=== PATIENT | female | born 1995 | race Caucasian/White ===

== ENCOUNTER 2023-06-09 20:33 | Outpatient (REF) | payer OTHER, SELFPAY ==
[2023-06-15 11:09] LABS: Age Gdln ACOG Testing Note (.); IGP, rfx Aptima HPV ASCU Note (.)
== END 2023-06-09 20:34 | disposition home or self-care (01) ==
LOC: LAB 20:33
PROVIDERS: PCP Obstetrics & Gynecology; Visit Provider Obstetrics & Gynecology
DX: Z01.419 Encounter for gynecological examination (general) (routine) without abnormal findings (principal)
CPT/HCPCS: G0145

== ENCOUNTER 2024-06-12 21:50 | Outpatient (REF) | payer OTHER, SELFPAY ==
--- OUTSIDE RECORDS SUMMARY | 2024-06-12 21:53 | XMS_ITS | CCD ---
Author Organization [facility] Care Team Providers Care Test Conductor Name Role Phone PHYSICIAN, DEFAULT Admitting Unavailable PHYSICIAN, DEFAULT Attending FIORDALIZA Hammond Primary Care Unavailable DR MAYNOR MARQUEZ Attending Unavailable DR MAYNOR MARQUEZ Consulting DR MAYNOR Weldon Admitting Unavailable MD Fiordaliza Chairez Attending Unavailable MD Fiordaliza Chairez Attending Unavailable MD Fiordaliza Chairez Attending Unavailable MD Fiordaliza Chairez Attending Unavailable MD Fiordaliza Chairez Attending Unavailable MD Fiordaliza Chairez Attending Unavailable MD Fiordaliza Chairez Attending Unavailable MD Fiordaliza Chairez Attending Unavailable MD Fiordaliza Chairez Attending Unavailable Allergies Allergy Classification Reported Allergen(s) Allergy Type Date of Onset Reaction(s) Facility (1 source) No Known Medication Allergies; Translations: [No Known Medication Allergies] Propensity to adverse reactions (disorder) [facility] Repository Problems Problem Classification Problem Date Documented Date Episodic/Chronic Immunizations and screening for infectious disease (1 source) Encounter for screening for human papillomavirus (HPV); Translations: [ENC SCREENING HUMAN PAPILLOMAVIRUS] Onset: 06-07-2022 Episodic Other screening for suspected conditions (not mental disorders or infectious disease) (4 sources) Encounter for screening for malignant neoplasm of cervix; Translations: [ENC SCREENING MALIG NEOPLASM CERV] Onset: 06-03-2022 Episodic Results Test Name Value Interpretation Reference Range Facil ity Ambulatory Visit Summaryon 0 04-16-2024 Ambulatory Visit Summary Ambulatory Visit Summary CHIKIS MEJIA :1995 Visit Date:04/16/2024 Ambulatory Visit Instructions Your Diagnosis Excessive dietary caloric intake Concentration deficit Anxiety GERD without esophagitis Your Care Team Attending Physician - Fiordaliza Chairez MD Primary Care Physician - Fiordaliza Chairez MD This Is Your Medications List buPROPion (Wellbutrin XL 150 mg/24 hours Tab-ER) semaglutide (Wegovy (0.25 mg dose) subcutaneous solution) Procedures Performed section. Discharge Vitals Temperature (Temporal Artery) 37.0 ?C Heart Rate (Peripheral) 70 Respiratory Rate 16 Blood Pressure 126/82 Height 165.2 cm Height 65 in Weight 93.3 kg Weight 205.26 lb BMI 34.19 What to do next Scheduled Follow-Up Appointments Tuesday 9:30 AM EDT With: Thee SONG, Fiordaliza Solitario Where: [facility] [address] [address]- Medications What How Much When Instructions Unchanged buPROPion (Wellbutrin XL 150 mg/ 24 hours Tab-ER) 1 Tablets By Mouth Every 24 hours Unchanged semaglutide (Wegovy (0.25 mg dose) subcutaneous solution) 0.25 Milligram Subcutaneous Every week Allergies No Known Medication Allergies Problems Ongoing - Any problem that you are currently receiving treatment for. Anxiety Concentration deficit Excessive dietary caloric intake GERD without esophagitis Mild episode of recurrent major depressive disorder Patient Survey You may receive a survey via text or e-mail asking about your office visit. Please share your experience with us by completing your survey. We appreciate your feedback and thank you for choosing us for your care. Normal [facility] Family Medicine Office/Clini c Noteon 04-16-2024 Family Medicine Office/Clinic Note Family Medicine Office/Clinic Note HPI Staff Chikis is a 28 year old female presenting for 3 month follow up weight Weight management Sleeping well:Yes, 6-8 hours Chest pain:No Tremors:No Headaches:No Heart fluttering:No Blurred Vision:No Starting Weight: 229 Weight last visit: 199.9 Weight this visit: 205 questions/concerns: stopped paying for the shot last month ran out of [employer] $ and it was too expensive and feels she's been stress eating for the last month Has felt anxious alot lately, no chest pains, but chest tightness, has to breathe/walk herself through it ADRIANA: 9 phq: 3 phq9: 15 History of Present Illness Patient is presenting for follow-up. Please see staff HPI. Patient states she is also feeling bloated. Patient is not taking her Wellbutrin like she supposed to. Patient is asking for help on weight again. Review of Systems PHQ Score Initial Depression Screen Score: 3 SCORE Detailed Depression Screen Score: 12 Total Depression Screen Score: 15 Physical Exam Vitals & Measurements T: 37.0 ?C(Temporal Artery) HR: 70(Peripheral) RR: 16 BP: 126/82 SpO2: 99% HT: 65 in HT: 165.2 cm WT: 93.3 kg WT: 205.26 lb BMI: 34.19 General: alert, no acute distress ENMT: oral mucosa moist, Cardiovascular: regular rate and rhythm, normal peripheral perfusion Respiratory: Lungs CTA, respirations non labored Extremities: no deformity, no trauma Neurological: oriented x 4, LOC appropriate for age, CN II-XII intact, motor strength equal & normal bilaterally, speech normal Abdomen: Soft, Nontender, Non-distended, + BS Assessment/Plan 1. Excessive dietary caloric intake (R63.2: Polyphagia) Will try Vyvanse next for binge eating disorder. However we need to make sure that patient is not having acid reflux symptoms. At this time we will continue to monitor and patient will follow-up in 6 weeks. 2. Concentration deficit (R41.840: Attention and concentration deficit) Will consider Vyvanse to help. 3. Anxiety (F41.9: Anxiety disorder, unspecified) Patient is not using her medication. Encouraged the patient to start taking her medication. 4. GERD without esophagitis (K21.9: Gastro-esophageal reflux disease without esophagitis) Will add Pepcid. Orders: buPROPion, 150 mg = 1 tab(s), Oral, q24hr, # 90 tab(s), Refills(s) 0, Pharmacy: [id number], 165.2, cm, 04/16/24 14:53:00 EDT, Height/Length Dosing, 93.3, kg, 04/16/24 14:53:00 EDT, Weight Dosing famotidine, 20 mg = 1 tab(s), Oral, BID, # 180 tab(s), Refills(s) 0, Pharmacy: [id number], 165.2, cm, 04/16/24 14:53:00 EDT, Height/Length Dosing, 93.3, kg, 04/16/24 14:53:00 EDT, Weight Dosing Follow-up No qualifying data available Problem List/Past Medical History Ongoing Anxiety Concentration deficit Excessive dietary caloric intake GERD without esophagitis Mild episode of recurrent major depressive disorder Historical No qualifying data Procedure/Surgical History section. Medications Pepcid 20 mg Tab, 20 mg= 1 tab(s), Oral, BID Wellbutrin XL 150 mg/24 hours Tab-ER, 150 mg= 1 tab(s), Oral, q24hr Allergies No Known Medication Allergies Social History Tobacco Never (less than 100 in lifetime) Tobacco Use:. Never Smokeless Tobacco Use:. Household tobacco concerns: No., 04/16/2024 Family History Alcoholism: Grandparent. Depression: Mother. Stroke: Grandparent. Immunizations Vaccine Date Status influenza virus vaccine, inactivated 08/15/2023 Given influenza virus vaccine, inactivated 08/14/2021 Recorded SARS-CoV-2 (COVID-19) mRNA BNT-162b2 vax 08/14/2021 Recorded SARS-CoV-2 (COVID-19) mRNA BNT-162b2 vax 11/20/2020 Recorded SARS-CoV-2 (COVID-19) mRNA BNT-162b2 vax 10/31/2020 Recorded influenza virus vaccine, inactivated 07/01/2019 Recorded influenza virus vaccine, inactivated 05/16/2018 Recorded Normal [facility] Comment on above: Result Comment: Elec tronically Signed By: Thee SONG, Fiordaliza Solitaroi\.br\Date and Time Signed: 04/16/24 15:08 EDT Retail - Clinical Noteon Retail - Clinical Note [id number] IFF Normal [facility] Family Medicine Office/Clini c Noteon 01-16-2024 Family Medicine Office/Clinic Note HPI Staff Chikis is a 27 year old female presenting for one month follow up weight Weight management Sleeping well:Yes, 6-8 hours Chest pain:No Tremors:No Headaches:No Heart fluttering:No Blurred Vision:No Starting Weight: 229 lbs Weight last visit: 203 lbs Weight this visit: 199 lbs question/concerns: none History of Present Illness - See staff HPI. Review of Systems PHQ Score Initial Depression Screen Score: 0 SCORE Physical Exam Vitals & Measurements T: 37.4 ?C(Temporal Artery) HR: 78(Peripheral) RR: 16 BP: 122/80 SpO2: 98% HT: 65 in HT: 165.2 cm WT: 90.9 kg WT: 199.98 lb BMI: 33.31 General: alert, no acute distress ENMT: oral mucosa moist, Cardiovascular: normal peripheral perfusion Respiratory: respirations non labored Extremities: no deformity, no trauma Neurological: oriented x 4, LOC appropriate for age, CN II-XII intact, motor strength equal & normal bilaterally, speech normal Assessment/Plan 1. Excessive dietary caloric intake (R63.2: Polyphagia) - Improving. - Increase the dose of semaglitide. - Follow up PRN - Increase physical activity 2. BMI 33.0-33.9,adult (Z68.33: Body mass index [BMI] 33.0-33.9, adult) - BMI education given 3. Class 1 obesity due to excess calories in adult (E66.09: Other obesity due to excess calories) - Diet and exercise advised 4. Nonsmoker (Z78.9: Other specified health status) - Please continue to not smoke. Follow-up No qualifying data available Patient Education BMI for Adults Problem List/Past Medical History Ongoing Anxiety Concentration deficit Excessive dietary caloric intake Mild episode of recurrent major depressive disorder Historical No qualifying data Procedure/Surgical History section. Medications Wegovy (0.25 mg dose) subcutaneous solution, 0.25 mg, SubCutaneous, qWeek Wellbutrin XL 150 mg/24 hours Tab-ER, 150 mg= 1 tab(s), Oral, q24hr Allergies No Known Medication Allergies Social History Tobacco Never (less than 100 in lifetime) Tobacco Use:. Never Smokeless Tobacco Use:. Household tobacco concerns: No., 01/16/2024 Family History Alcoholism: Grandparent. Depression: Mother. Stroke: Grandparent. Immunizations Vaccine Date Status influenza virus vaccine, inactivated 08/15/2023 Given influenza virus vaccine, inactivated 08/14/2021 Recorded SARS-CoV-2 (COVID-19) mRNA BNT-162b2 vax 08/14/2021 Recorded SARS-CoV-2 (COVID-19) mRNA BNT-162b2 vax 11/20/2020 Recorded SARS-CoV-2 (COVID-19) mRNA BNT-162b2 vax 10/31/2020 Recorded influenza virus vaccine, inactivated 07/01/2019 Recorded influenza virus vaccine, inactivated 05/16/2018 Recorded Normal [facility] Comment on above: Result Comment: Debbie segal Signed By: Thee SONG, Fiordaliza Jose\Date and Time Signed: 01/16/24 15:52 EDT Patient Educationon 01-16-20 24 Patient Education Nutrition BMI for Adults What is BMI? Body mass index (BMI) is a number that is calculated from a person's weight and height. BMI can help estimate how much of a person's weight is composed of fat. BMI does not measure body fat directly. Rather, it is an alternative to procedures that directly measure body fat, which can be difficult and expensive. BMI can help identify people who may be at higher risk for certain medical problems. What are BMI measurements used for? BMI is used as a screening tool to identify possible weight problems. It helps determine whether a person is obese, overweight, a healthy weight, or underweight. BMI is useful for: ? Identifying a weight problem that may be related to a medical condition or may increase the risk for medical problems. ? Promoting changes, such as changes in diet and exercise, to help reach a healthy weight. BMI screening can be repeated to see if these changes are working. How is BMI calculated? BMI involves measuring your weight in relation to your height. Both height and weight are measured, and the BMI is calculated from those numbers. This can be done either in [place] or metric measurements. Note that charts and online BMI calculators are available to help you find your BMI quickly and easily without having to do these calculations yourself. To calculate your BMI in [place] measurements: 1. Measure your weight in pounds (lb). 2. Multiply the number of pounds by 703. ? For example, for a person who weighs 180 lb, multiply that number by 703, which equals 126,540. 3. Measure your height in inches. Then multiply that number by itself to get a measurement called inches squared. ? For example, for a person who is 70 inches tall, the inches squared measurement is 70 inches x 70 inches, which equals 4,900 inches squared. 4. Divide the total from step 2 (number of lb x 703) by the total from step 3 (inches squared): 126,540 ? 4,900 = 25.8. This is your BMI. To calculate your BMI in metric measurements: 1. Measure your weight in kilograms (kg). 2. Measure your height in meters (m). Then multiply that number by itself to get a measurement called meters squared. ? For example, for a person who is 1.75 m tall, the meters squared measurement is 1.75 m x 1.75 m, which is equal to 3.1 meters squared. 3. Divide the number of kilograms (your weight) by the meters squared number. In this example: 70 ? 3.1 = 22.6. This is your BMI. What do the results mean? BMI charts are used to identify whether you are underweight, normal weight, overweight, or obese. The following guidelines will be used: ? Underweight: BMI less than 18.5. ? Normal weight: BMI between 18.5 and 24.9. ? Overweight: BMI between 25 and 29.9. ? Obese: BMI of 30 or above. Keep these notes in mind: ? Weight includes both fat and muscle, so someone with a muscular build, such as an athlete, may have a BMI that is higher than 24.9. In cases like these, BMI is not an accurate measure of body fat. ? To determine if excess body fat is the cause of a BMI of 25 or higher, further assessments may need to be done by a health care provider. ? BMI is usually interpreted in the same way for men and women. Where to find more information For more information about BMI, including tools to quickly calculate your BMI, go to these websites: ? Centers for Disease Control and Prevention: www.cdc.gov ? [place] [employer]: www.heart.org ? National Heart, Lung, and Blood [place]: www.nhlbi.nih.gov Summary ? Body mass index (BMI) is a number that is calculated from a person's weight and height. ? BMI may help estimate how much of a person's weight is composed of fat. BMI can help identify those who may be at higher risk for certain medical problems. ? BMI can be measured using [place] measurements or metric measurements. ? BMI charts are used to identify whether you are underweight, normal weight, overweight, or obese. This information is not intended to replace advice given to you by your health care provider. Make sure you discuss any questions you have with your health care provider. Document Revised: 04/09/2020 Document Reviewed: 02/15/2020 [employer] Patient Education ? 2022 [employer]. Normal [facility] Retail - Clinical Noteon Retail - Clinical Note [id number] IFF Normal [facility] Family Medicine Office/Clini c Noteon 12-19-2023 Family Medicine Office/Clinic Note HPI Staff Chikis is a 27 year old female presenting for one month weight Weight management Sleeping well:Yes, 6-8 hours Chest pain:No Tremors:No Headaches:No Heart fluttering:No Blurred Vision:No Starting Weight: 229lbs Weight last visit: 205lbs Weight this visit: 203lbs questions/concerns: needs the semaglutide refilled to [facility] History of Present Illness - See staff HPI. Review of Systems PHQ Score Initial Depression Screen Score: 0 SCORE Physical Exam Vitals & Measurements T: 36.8 ?C(Oral) HR: 88(Peripheral) RR: 16 BP: 130/78 SpO2: 99% HT: 65 in HT: 165.2 cm WT: 92.5 kg WT: 203.5 lb BMI: 33.89 General: alert, no acute distress ENMT: oral mucosa moist, Cardiovascular: regular rate and rhythm, normal peripheral perfusion Respiratory: Lungs CTA, respirations non labored Extremities: no deformity, no trauma Neurological: oriented x 4, LOC appropriate for age, CN II-XII intact, motor strength equal & normal bilaterally, speech normal Abdomen: Soft, Nontender, Non-distended, + BS Assessment/Plan 1. Excessive dietary caloric intake (R63.2: Polyphagia) - Will increase the wegovy to the .6 - Follow up in 1 month Follow-up No qualifying data available Problem List/Past Medical History Ongoing Anxiety Concentration deficit Excessive dietary caloric intake Mild episode of recurrent major depressive disorder Historical No qualifying data Procedure/Surgical History section. Medications Wegovy (0.25 mg dose) subcutaneous solution, 0.25 mg, SubCutaneous, qWeek Wellbutrin XL 150 mg/24 hours Tab-ER, 150 mg= 1 tab(s), Oral, q24hr Allergies No Known Medication Allergies Social History Tobacco Never (less than 100 in lifetime) Tobacco Use:. Never Smokeless Tobacco Use:. Household tobacco concerns: No., 12/19/2023 Family History Alcoholism: Grandparent. Depression: Mother. Stroke: Grandparent. Immunizations Vaccine Date Status influenza virus vaccine, inactivated 08/15/2023 Given influenza virus vaccine, inactivated 08/14/2021 Recorded SARS-CoV-2 (COVID-19) mRNA BNT-162b2 vax 08/14/2021 Recorded SARS-CoV-2 (COVID-19) mRNA BNT-162b2 vax 11/20/2020 Recorded SARS-CoV-2 (COVID-19) mRNA BNT-162b2 vax 10/31/2020 Recorded influenza virus vaccine, inactivated 07/01/2019 Recorded influenza virus vaccine, inactivated 05/16/2018 Recorded Normal [facility] Comment on above: Result Comment: Elec tronically Signed By: Fiordaliza Chairez MD\.br\Date and Time Signed: 12/19/23 17:24 EDT Retail - Clinical Noteon Retail - Clinical Note [id number] IFF Normal [facility] Ambulatory Visit Summaryon 0 11-21-2023 Ambulatory Visit Summary CHIKIS MEJIA :1995 Visit Date:11/21/2023 Ambulatory Visit Instructions Your Diagnosis Excessive dietary caloric intake BMI 34.0-34.9,adult Class 1 obesity due to excess calories in adult Nonsmoker Mild episode of recurrent major depressive disorder Your Care Team Attending Physician - Fiordaliza Chairez MD Primary Care Physician - Fiordaliza Chairez MD This Is Your Medications List buPROPion (Wellbutrin XL 150 mg/24 hours Tab-ER) semaglutide (Wegovy (0.25 mg dose) subcutaneous solution) [Image Removed: STOP]Stop taking these medications phentermine (phentermine 37.5 mg oral capsule) Procedures Performed section. Discharge Vitals Temperature (Temporal Artery) 37.1 ?C Heart Rate (Peripheral) 82 Respiratory Rate 18 Blood Pressure 132/80 Height 165.2 cm Height 65 in Weight 93.3 kg Weight 205.26 lb BMI 34.19 What to do next Scheduled Follow-Up Appointments Bill May. 20, 2024 5:00 PM EDT With: Thee SONG, Fiordaliza Solitario Where: [facility] [place] Normal [facility] Family Medicine Office/Clini c Noteon 11-21-2023 Family Medicine Office/Clinic Note HPI Staff Chikis is a 27 year old female presenting for one month follow up weight Weight management Sleeping well:Yes, 6-8 hours Chest pain:No Tremors:No Headaches:No Heart fluttering:No Blurred Vision:No Weight last visit: 208lbs Weight this visit: 205lbs questions/concerns: to discuss adipex, said you wanted her to lose 5 pounds History of Present Illness - Here for follow up. - Lost some weight but still struggling. - Wants to try something new. Review of Systems PHQ Score Initial Depression Screen Score: 0 SCORE Physical Exam Vitals & Measurements T: 37.1 ?C(Temporal Artery) HR: 82(Peripheral) RR: 18 BP: 132/80 SpO2: 100% HT: 65 in HT: 165.2 cm WT: 93.3 kg WT: 205.26 lb BMI: 34.19 General: alert, no acute distress ENMT: oral mucosa moist, Cardiovascular: regular rate and rhythm, normal peripheral perfusion Respiratory: Lungs CTA, respirations non labored Extremities: no deformity, no trauma Neurological: oriented x 4, LOC appropriate for age, CN II-XII intact, motor strength equal & normal bilaterally, speech normal Abdomen: Soft, Nontender, Non-distended, + BS Assessment/Plan 1. Excessive dietary caloric intake (R63.2: Polyphagia) - Will try Wellbutrin and semaglutide. - Follow up in 1 month - Encouraged exercise 2. BMI 34.0-34.9,adult (Z68.34: Body mass index [BMI] 34.0-34.9, adult) - BMI education given 3. Class 1 obesity due to excess calories in adult (E66.09: Other obesity due to excess calories) - Diet and exercise advised 4. Nonsmoker (Z78.9: Other specified health status) - Please continue to not smoke 5. Mild episode of recurrent major depressive disorder (F33.0: Major depressive disorder, recurrent, mild) - Will see if the Wellbutrin helps with some of the emotional eating Orders: buPROPion, 150 mg = 1 tab(s), Oral, q24hr, # 90 tab(s), Refills(s) 0, Pharmacy: [id number], 165.2, cm, 11/21/23 17:05:00 EDT, Height/Length Dosing, 93.3, kg, 11/21/23 17:05:00 EDT, Weight Dosing semaglutide, 0.25 mg, SubCutaneous, qWeek, # 4 EA, Refills(s) 0, other reason (Rx) Follow-up No qualifying data available Patient Education BMI for Adults Problem List/Past Medical History Ongoing Anxiety Concentration deficit Excessive dietary caloric intake Mild episode of recurrent major depressive disorder Strep throat Historical No qualifying data Procedure/Surgical History section. Medications Wegovy (0.25 mg dose) subcutaneous solution, 0.25 mg, SubCutaneous, qWeek Wellbutrin XL 150 mg/24 hours Tab-ER, 150 mg= 1 tab(s), Oral, q24hr Allergies No Known Medication Allergies Social History Tobacco Never (less than 100 in lifetime) Tobacco Use:. Never Smokeless Tobacco Use:. Household tobacco concerns: No., 11/21/2023 Family History Alcoholism: Grandparent. Depression: Mother. Stroke: Grandparent. Immunizations Vaccine Date Status influenza virus vaccine, inactivated 08/15/2023 Given influenza virus vaccine, inactivated 08/14/2021 Recorded SARS-CoV-2 (COVID-19) mRNA BNT-162b2 vax 08/14/2021 Recorded SARS-CoV-2 (COVID-19) mRNA BNT-162b2 vax 11/20/2020 Recorded SARS-CoV-2 (COVID-19) mRNA BNT-162b2 vax 10/31/2020 Recorded influenza virus vaccine, inactivated 07/01/2019 Recorded influenza virus vaccine, inactivated 05/16/2018 Recorded Normal [facility] Comment on above: Result Comment: Elec tronically Signed By: Thee SONG, Fiordaliza Andrew.br\Date and Time Signed: 11/21/23 17:19 EDT Patient Educationon 11-21-19 Patient Education Nutrition BMI for Adults What is BMI? Body mass index (BMI) is a number that is calculated from a person's weight and height. BMI can help estimate how much of a person's weight is composed of fat. BMI does not measure body fat directly. Rather, it is an alternative to procedures that directly measure body fat, which can be difficult and expensive. BMI can help identify people who may be at higher risk for certain medical problems. What are BMI measurements used for? BMI is used as a screening tool to identify possible weight problems. It helps determine whether a person is obese, overweight, a healthy weight, or underweight. BMI is useful for: ? Identifying a weight problem that may be related to a medical condition or may increase the risk for medical problems. ? Promoting changes, such as changes in diet and exercise, to help reach a healthy weight. BMI screening can be repeated to see if these changes are working. How is BMI calculated? BMI involves measuring your weight in relation to your height. Both height and weight are measured, and the BMI is calculated from those numbers. This can be done either in [place] or metric measurements. Note that charts and online BMI calculators are available to help you find your BMI quickly and easily without having to do these calculations yourself. To calculate your BMI in [place] measurements: 1. Measure your weight in pounds (lb). 2. Multiply the number of pounds by 703. ? For example, for a person who weighs 180 lb, multiply that number by 703, which equals 126,540. 3. Measure your height in inches. Then multiply that number by itself to get a measurement called inches squared. ? For example, for a person who is 70 inches tall, the inches squared measurement is 70 inches x 70 inches, which equals 4,900 inches squared. 4. Divide the total from step 2 (number of lb x 703) by the total from step 3 (inches squared): 126,540 ? 4,900 = 25.8. This is your BMI. To calculate your BMI in metric measurements: 1. Measure your weight in kilograms (kg). 2. Measure your height in meters (m). Then multiply that number by itself to get a measurement called meters squared. ? For example, for a person who is 1.75 m tall, the meters squared measurement is 1.75 m x 1.75 m, which is equal to 3.1 meters squared. 3. Divide the number of kilograms (your weight) by the meters squared number. In this example: 70 ? 3.1 = 22.6. This is your BMI. What do the results mean? BMI charts are used to identify whether you are underweight, normal weight, overweight, or obese. The following guidelines will be used: ? Underweight: BMI less than 18.5. ? Normal weight: BMI between 18.5 and 24.9. ? Overweight: BMI between 25 and 29.9. ? Obese: BMI of 30 or above. Keep these notes in mind: ? Weight includes both fat and muscle, so someone with a muscular build, such as an athlete, may have a BMI that is higher than 24.9. In cases like these, BMI is not an accurate measure of body fat. ? To determine if excess body fat is the cause of a BMI of 25 or higher, further assessments may need to be done by a health care provider. ? BMI is usually interpreted in the same way for men and women. Where to find more information For more information about BMI, including tools to quickly calculate your BMI, go to these websites: ? Centers for Disease Control and Prevention: www.cdc.gov ? [place] [employer]: www.heart.org ? National Heart, Lung, and Blood [place]: www.nhlbi.nih.gov Summary ? Body mass index (BMI) is a number that is calculated from a person's weight and height. ? BMI may help estimate how much of a person's weight is composed of fat. BMI can help identify those who may be at higher risk for certain medical problems. ? BMI can be measured using [place] measurements or metric measurements. ? BMI charts are used to identify whether you are underweight, normal weight, overweight, or obese. This information is not intended to replace advice given to you by your health care provider. Make sure you discuss any questions you have with your health care provider. Document Revised: 04/09/2020 Document Reviewed: 02/15/2020 [employer] Patient Education ? 2022 [employer]. [facility] Family Medicine Office/Clini c Noteon 10-17-2023 Family Medicine Office/Clinic Note HPI Staff Chikis is a 27 year old female presenting for 2 month follow up weight and mood Weight management Sleeping well:Yes, 6-8 hours Chest pain:No Tremors:No Headaches:No Heart fluttering:No Blurred Vision:No Weight last visit: 95kg/209lbs Weight this visit: 94.8kg/208lbs Follow up for Mental Status: Medication adherence: not on any meds Medication refill needed: _ Suicidal thoughts-Not at this time Most recent ADRIANA: 1 Most recent PHQ: 1 flu: UTD 08/15/23 questions/concerns needs her adipex refilled History of Present Illness The patient presents for evaluation of weight loss. She is losing weight slowly. She needs to start going to the gym again. She had better results on Adipex when she was consistently going to the gym. She could adjust her diet a bit, but she still only eats one meal a day. She is not tracking what she eats. Supplemental Information Her mood is doing really well. Review of Systems PHQ Score Initial Depression Screen Score: 1 SCORE Physical Exam Vitals & Measurements T: 37.0 ?C(Temporal Artery) HR: 76(Peripheral) RR: 14 BP: 120/78 SpO2: 98% HT: 65 in HT: 165.2 cm WT: 94.8 kg WT: 208.56 lb BMI: 34.74 General: alert, no acute distress ENMT: oral mucosa moist, Cardiovascular: regular rate and rhythm, normal peripheral perfusion Respiratory: Lungs CTA, respirations non labored Extremities: no deformity, no trauma Neurological: oriented x 4, LOC appropriate for age, CN II-XII intact, motor strength equal & normal bilaterally, speech normal Abdomen: Soft, Nontender, Non-distended, + BS Assessment/Plan 1. Excessive dietary caloric intake (R63.2: Polyphagia) - Down 1 pound - Discussed logging food. - Diet and exercise advised - Goal is to loose 5 pounds Ordered: phentermine, 37.5 mg = 1 cap(s), Oral, Daily, # 30 cap(s), Refills(s) 0, Pharmacy: [facility] #[id number], 165.2, cm, 10/17/23 8:23:00 EDT, Height/Length Dosing, 94.8, kg, 10/17/23 8:23:00 EDT, Weight Dosing 2. Anxiety (F41.9: Anxiety disorder, unspecified) - Well controlled - Continue to monitor Ordered: phentermine, 37.5 mg = 1 cap(s), Oral, Daily, # 30 cap(s), Refills(s) 0, Pharmacy: [facility] #[id number], 165.2, cm, 10/17/23 8:23:00 EDT, Height/Length Dosing, 94.8, kg, 10/17/23 8:23:00 EDT, Weight Dosing 3. Mild episode of recurrent major depressive disorder (F33.0: Major depressive disorder, recurrent, mild) - As above Ordered: phentermine, 37.5 mg = 1 cap(s), Oral, Daily, # 30 cap(s), Refills(s) 0, Pharmacy: [facility] #[id number], 165.2, cm, 10/17/23 8:23:00 EDT, Height/Length Dosing, 94.8, kg, 10/17/23 8:23:00 EDT, Weight Dosing 4. BMI 34.0-34.9,adult (Z68.34: Body mass index [BMI] 34.0-34.9, adult) - BMI education uploaded 5. Class 1 obesity due to excess calories in adult (E66.09: Other obesity due to excess calories) - Diet and exercise advised Ordered: phentermine, 37.5 mg = 1 cap(s), Oral, Daily, # 30 cap(s), Refills(s) 0, Pharmacy: [facility] #[id number], 165.2, cm, 10/17/23 8:23:00 EDT, Height/Length Dosing, 94.8, kg, 10/17/23 8:23:00 EDT, Weight Dosing 6. Nonsmoker (Z78.9: Other specified health status) - Please continue to not smoke. Follow-up No qualifying data available Patient Education BMI for Adults Problem List/Past Medical History Ongoing Anxiety Concentration deficit Excessive dietary caloric intake Mild episode of recurrent major depressive disorder Strep throat Historical No qualifying data Procedure/Surgical History section. Medications phentermine 37.5 mg oral capsule, 37.5 mg= 1 cap(s), Oral, Daily Allergies No Known Medication Allergies Social History Tobacco Never (less than 100 in lifetime) Tobacco Use:. Never Smokeless Tobacco Use:. Household tobacco concerns: No., 10/17/2023 Family History Alcoholism: Grandparent. Depression: Mother. Stroke: Grandparent. Immunizations Vaccine Date Status influenza virus vaccine, inactivated 08/15/2023 Given influenza virus vaccine, inactivated 08/14/2021 Recorded SARS-CoV-2 (COVID-19) mRNA BNT-162b2 vax 08/14/2021 Recorded SARS-CoV-2 (COVID-19) mRNA BNT-162b2 vax 11/20/2020 Recorded SARS-CoV-2 (COVID-19) mRNA BNT-162b2 vax 10/31/2020 Recorded influenza virus vaccine, inactivated 07/01/2019 Recorded influenza virus vaccine, inactivated 05/16/2018 Recorded [facility] Comment on above: Result Comment: Elec tronically Signed By: Thee SONG, Fiordaliza Andrew.br\Date and Time Signed: 10/17/23 08:50 EDT Patient Educationon 10-17-19 Patient Education Nutrition BMI for Adults What is BMI? Body mass index (BMI) is a number that is calculated from a person's weight and height. BMI can help estimate how much of a person's weight is composed of fat. BMI does not measure body fat directly. Rather, it is an alternative to procedures that directly measure body fat, which can be difficult and expensive. BMI can help identify people who may be at higher risk for certain medical problems. What are BMI measurements used for? BMI is used as a screening tool to identify possible weight problems. It helps determine whether a person is obese, overweight, a healthy weight, or underweight. BMI is useful for: ? Identifying a weight problem that may be related to a medical condition or may increase the risk for medical problems. ? Promoting changes, such as changes in diet and exercise, to help reach a healthy weight. BMI screening can be repeated to see if these changes are working. How is BMI calculated? BMI involves measuring your weight in relation to your height. Both height and weight are measured, and the BMI is calculated from those numbers. This can be done either in [place] or metric measurements. Note that charts and online BMI calculators are available to help you find your BMI quickly and easily without having to do these calculations yourself. To calculate your BMI in [place] measurements: 1. Measure your weight in pounds (lb). 2. Multiply the number of pounds by 703. ? For example, for a person who weighs 180 lb, multiply that number by 703, which equals 126,540. 3. Measure your height in inches. Then multiply that number by itself to get a measurement called inches squared. ? For example, for a person who is 70 inches tall, the inches squared measurement is 70 inches x 70 inches, which equals 4,900 inches squared. 4. Divide the total from step 2 (number of lb x 703) by the total from step 3 (inches squared): 126,540 ? 4,900 = 25.8. This is your BMI. To calculate your BMI in metric measurements: 1. Measure your weight in kilograms (kg). 2. Measure your height in meters (m). Then multiply that number by itself to get a measurement called meters squared. ? For example, for a person who is 1.75 m tall, the meters squared measurement is 1.75 m x 1.75 m, which is equal to 3.1 meters squared. 3. Divide the number of kilograms (your weight) by the meters squared number. In this example: 70 ? 3.1 = 22.6. This is your BMI. What do the results mean? BMI charts are used to identify whether you are underweight, normal weight, overweight, or obese. The following guidelines will be used: ? Underweight: BMI less than 18.5. ? Normal weight: BMI between 18.5 and 24.9. ? Overweight: BMI between 25 and 29.9. ? Obese: BMI of 30 or above. Keep these notes in mind: ? Weight includes both fat and muscle, so someone with a muscular build, such as an athlete, may have a BMI that is higher than 24.9. In cases like these, BMI is not an accurate measure of body fat. ? To determine if excess body fat is the cause of a BMI of 25 or higher, further assessments may need to be done by a health care provider. ? BMI is usually interpreted in the same way for men and women. Where to find more information For more information about BMI, including tools to quickly calculate your BMI, go to these websites: ? Centers for Disease Control and Prevention: www.cdc.gov ? [place] [employer]: www.heart.org ? National Heart, Lung, and Blood [place]: www.nhlbi.nih.gov Summary ? Body mass index (BMI) is a number that is calculated from a person's weight and height. ? BMI may help estimate how much of a person's weight is composed of fat. BMI can help identify those who may be at higher risk for certain medical problems. ? BMI can be measured using [place] measurements or metric measurements. ? BMI charts are used to identify whether you are underweight, normal weight, overweight, or obese. This information is not intended to replace advice given to you by your health care provider. Make sure you discuss any questions you have with your health care provider. Document Revised: 04/09/2020 Document Reviewed: 02/15/2020 [employer] Patient Education ? 2022 [employer]. [facility] Ambulatory Visit Summaryon 0 08-15-2023 Ambulatory Visit Summary CHIKIS MEJIA :1995 Visit Date:08/15/2023 Ambulatory Visit Instructions Your Diagnosis Anxiety Mild episode of recurrent major depressive disorder BMI 34.0-34.9,adult Non-smoker Excessive dietary caloric intake Encounter for immunization Your Care Team Attending Physician - Fiordaliza Chairez MD Primary Care Physician - Fiordaliza Chairez MD This Is Your Medications List phentermine (phentermine 37.5 mg oral capsule) Procedures Performed section. Discharge Vitals Heart Rate (Peripheral) 70 Respiratory Rate 18 Blood Pressure 112/68 Height 165.2 cm Height 65 in Weight 95.0 kg Weight 209 lb BMI 34.81 What to do next Scheduled Follow-Up Appointments Tuesday 8:15 AM EDT With: Fiordaliza Chairez MD Where: [facility] Family Medicine [facility] Ambulatory Visit Summary CHIKIS MEJIA :1995 Visit Date:08/15/2023 Ambulatory Visit Instructions Your Diagnosis Anxiety Mild episode of recurrent major depressive disorder BMI 34.0-34.9,adult Non-smoker Excessive dietary caloric intake Encounter for immunization Your Care Team Attending Physician - Fiordaliza Chairez MD Primary Care Physician - Fiordaliza Chairez MD This Is Your Medications List phentermine (phentermine 37.5 mg oral capsule) Procedures Performed section. Discharge Vitals Heart Rate (Peripheral) 70 Respiratory Rate 18 Blood Pressure 112/68 Height 165.2 cm Height 65 in Weight 95.0 kg Weight 209 lb BMI 34.81 What to do next Scheduled Follow-Up Appointments Tuesday 8:15 AM EDT With: Thee SONG, Fiordaliza Solitario Where: [facility] [place] [facility] Consent for Flu Vaccineon Consent for Flu Vaccine [id number] IFF Normal [facility] Office/Clini c Noteon 08-15-2023 Family Medicine Office/Clinic Note HPI Staff Chikis is a 27 year old female presenting for 2 month follow up weight and mood Weight management Sleeping well:Yes, 6-8 hours Chest pain:No Tremors:No Headaches:No Heart fluttering:No Blurred Vision:No Weight last visit: 212.74Ibs/ 96.7Kg Weight this visit: 209Ibs/ 95Kg Follow up for Mental Status: Medication adherence- Yes, takes medication as prescribed Medication refill needed: _ Suicidal thoughts-Not at this time Most recent ADRIANA: 5 Most recent PHQ9: 6 flu: administered today History of Present Illness Pt here for follow up. - Mood is doing well. - Doing well with weight loss even over [place] Review of Systems PHQ Score Initial Depression Screen Score: 0 SCORE Physical Exam Vitals & Measurements HR: 70(Peripheral) RR: 18 BP: 112/68 SpO2: 99% HT: 65 in HT: 165.2 cm WT: 95.0 kg WT: 209 lb BMI: 34.81 General: alert, no acute distress ENMT: oral mucosa moist, Cardiovascular: regular rate and rhythm, normal peripheral perfusion Respiratory: Lungs CTA, respirations non labored Extremities: no deformity, no trauma Neurological: oriented x 4, LOC appropriate for age, CN II-XII intact, motor strength equal & normal bilaterally, speech normal Abdomen: Soft, Nontender, Non-distended, + BS Assessment/Plan 1. Anxiety (F41.9: Anxiety disorder, unspecified) - Well controlled off medications. - Continue to monitor Ordered: influenza virus vaccine, inactivated, 0.5 mL, Injection, IntraMuscular, Once, Stop date 08/15/23 9:00:00 EST, Routine, Start date 08/15/23 9:00:00 EST phentermine, 37.5 mg = 1 cap(s), Oral, Daily, # 30 cap(s), Refills(s) 1, Pharmacy: [facility] #[id number], 165.2, cm, 08/15/23 8:13:00 EST, Height/Length Dosing, 95, kg, 08/15/23 8:13:00 EST, Weight Dosing 2. Mild episode of recurrent major depressive disorder (F33.0: Major depressive disorder, recurrent, mild) - In remission at this time - No other issues Ordered: influenza virus vaccine, inactivated, 0.5 mL, Injection, IntraMuscular, Once, Stop date 08/15/23 9:00:00 EST, Routine, Start date 08/15/23 9:00:00 EST phentermine, 37.5 mg = 1 cap(s), Oral, Daily, # 30 cap(s), Refills(s) 1, Pharmacy: [facility] #[id number], 165.2, cm, 08/15/23 8:13:00 EST, Height/Length Dosing, 95, kg, 08/15/23 8:13:00 EST, Weight Dosing 3. BMI 34.0-34.9,adult (Z68.34: Body mass index [BMI] 34.0-34.9, adult) - BMI education give Ordered: influenza virus vaccine, inactivated, 0.5 mL, Injection, IntraMuscular, Once, Stop date 08/15/23 9:00:00 EST, Routine, Start date 08/15/23 9:00:00 EST 4. Non-smoker (Z78.9: Other specified health status) - Please continue to not smoke Ordered: influenza virus vaccine, inactivated, 0.5 mL, Injection, IntraMuscular, Once, Stop date 08/15/23 9:00:00 EST, Routine, Start date 08/15/23 9:00:00 EST 5. Excessive dietary caloric intake (R63.2: Polyphagia) - Continue on adipex as the patient is doing well. Ordered: influenza virus vaccine, inactivated, 0.5 mL, Injection, IntraMuscular, Once, Stop date 08/15/23 9:00:00 EST, Routine, Start date 08/15/23 9:00:00 EST phentermine, 37.5 mg = 1 cap(s), Oral, Daily, # 30 cap(s), Refills(s) 1, Pharmacy: [facility] #[id number], 165.2, cm, 08/15/23 8:13:00 EST, Height/Length Dosing, 95, kg, 08/15/23 8:13:00 EST, Weight Dosing 6. Encounter for immunization (Z23: Encounter for immunization) - Flu shot given Ordered: FIRST VACCINE w/o Floor Broker Admin Charge [id number] Follow-up No qualifying data available Patient Education BMI for Adults Problem List/Past Medical History Ongoing Anxiety Concentration deficit Excessive dietary caloric intake Mild episode of recurrent major depressive disorder Strep throat Historical No qualifying data Procedure/Surgical History section. Medications phentermine 37.5 mg oral capsule, 37.5 mg= 1 cap(s), Oral, Daily, 1 refills Allergies No Known Medication Allergies Social History Tobacco Never (less than 100 in lifetime) Tobacco Use:. Never Smokeless Tobacco Use:. Household tobacco concerns: No., 08/15/2023 Family History Alcoholism: Grandparent. Depression: Mother. Stroke: Grandparent. Immunizations Vaccine Date Status influenza virus vaccine, inactivated 08/15/2023 Given influenza virus vaccine, inactivated 08/14/2021 Recorded SARS-CoV-2 (COVID-19) mRNA BNT-162b2 vax 08/14/2021 Recorded SARS-CoV-2 (COVID-19) mRNA BNT-162b2 vax 11/20/2020 Recorded SARS-CoV-2 (COVID-19) mRNA BNT-162b2 vax 10/31/2020 Recorded influenza virus vaccine, inactivated 07/01/2019 Recorded influenza virus vaccine, inactivated 05/16/2018 Recorded Normal [facility] Comment on above: Result Comment: Elec tronically Signed By: Thee SONG, Fiordaliza Andrew.br\Date and Time Signed: 08/15/23 08:27 EST Patient Educationon 08-15-19 Patient Education Nutrition BMI for Adults What is BMI? Body mass index (BMI) is a number that is calculated from a person's weight and height. BMI can help estimate how much of a person's weight is composed of fat. BMI does not measure body fat directly. Rather, it is an alternative to procedures that directly measure body fat, which can be difficult and expensive. BMI can help identify people who may be at higher risk for certain medical problems. What are BMI measurements used for? BMI is used as a screening tool to identify possible weight problems. It helps determine whether a person is obese, overweight, a healthy weight, or underweight. BMI is useful for: ? Identifying a weight problem that may be related to a medical condition or may increase the risk for medical problems. ? Promoting changes, such as changes in diet and exercise, to help reach a healthy weight. BMI screening can be repeated to see if these changes are working. How is BMI calculated? BMI involves measuring your weight in relation to your height. Both height and weight are measured, and the BMI is calculated from those numbers. This can be done either in [place] or metric measurements. Note that charts and online BMI calculators are available to help you find your BMI quickly and easily without having to do these calculations yourself. To calculate your BMI in [place] measurements: 1. Measure your weight in pounds (lb). 2. Multiply the number of pounds by 703. ? For example, for a person who weighs 180 lb, multiply that number by 703, which equals 126,540. 3. Measure your height in inches. Then multiply that number by itself to get a measurement called inches squared. ? For example, for a person who is 70 inches tall, the inches squared measurement is 70 inches x 70 inches, which equals 4,900 inches squared. 4. Divide the total from step 2 (number of lb x 703) by the total from step 3 (inches squared): 126,540 ? 4,900 = 25.8. This is your BMI. To calculate your BMI in metric measurements: 1. Measure your weight in kilograms (kg). 2. Measure your height in meters (m). Then multiply that number by itself to get a measurement called meters squared. ? For example, for a person who is 1.75 m tall, the meters squared measurement is 1.75 m x 1.75 m, which is equal to 3.1 meters squared. 3. Divide the number of kilograms (your weight) by the meters squared number. In this example: 70 ? 3.1 = 22.6. This is your BMI. What do the results mean? BMI charts are used to identify whether you are underweight, normal weight, overweight, or obese. The following guidelines will be used: ? Underweight: BMI less than 18.5. ? Normal weight: BMI between 18.5 and 24.9. ? Overweight: BMI between 25 and 29.9. ? Obese: BMI of 30 or above. Keep these notes in mind: ? Weight includes both fat and muscle, so someone with a muscular build, such as an athlete, may have a BMI that is higher than 24.9. In cases like these, BMI is not an accurate measure of body fat. ? To determine if excess body fat is the cause of a BMI of 25 or higher, further assessments may need to be done by a health care provider. ? BMI is usually interpreted in the same way for men and women. Where to find more information For more information about BMI, including tools to quickly calculate your BMI, go to these websites: ? Centers for Disease Control and Prevention: www.cdc.gov ? [place] [employer]: www.heart.org ? National Heart, Lung, and Blood [place]: www.nhlbi.nih.gov Summary ? Body mass index (BMI) is a number that is calculated from a person's weight and height. ? BMI may help estimate how much of a person's weight is composed of fat. BMI can help identify those who may be at higher risk for certain medical problems. ? BMI can be measured using [place] measurements or metric measurements. ? BMI charts are used to identify whether you are underweight, normal weight, overweight, or obese. This information is not intended to replace advice given to you by your health care provider. Make sure you discuss any questions you have with your health care provider. Document Revised: 04/09/2020 Document Reviewed: 02/15/2020 [employer] Patient Education ? 2022 [employer]. [facility] Ambulatory Visit Summaryon 1 09-11-2022 Ambulatory Visit Summary MEJIABRIANMATILDA Spencer :1995 Visit Date:07/11/2023 Ambulatory Visit Instructions Your Diagnosis Strep throat Swollen tonsil Your Care Team Attending Physician - Fiordaliza Chairez MD. Primary Care Physician - Fiordaliza Chairez MD. This Is Your Medications List phentermine (phentermine 37.5 mg oral capsule) Procedures Performed section. Discharge Vitals Temperature (Temporal Artery) 36.9 ?C Heart Rate (Peripheral) 76 Respiratory Rate 16 Blood Pressure 120/66 Height 165.2 cm Height 65 in Weight 96.7 kg Weight 212.74 lb BMI 35.43 What to do next Scheduled Follow-Up Appointments Tuesday 8:00 AM EST With: Thee SONG, Fiordaliza Solitario Where: [facility] [place] [facility] Medicine Office/Clini c Noteon 07-11-2023 Family Medicine Office/Clinic Note HPI Staff Chikis is a 27 year old female presenting for acute visit Acute swollen tonsils, sore neck Onset: sore neck sat. morning by sat night developed a fever sinus congestion- no swollen nodes-yes in the neck red/ white spots- white spots also gets tonsil stones fever/chills- yes body aches- yes nausea/ vomiting- no cough- no ear pain no allergies- none medication taken- advil strep screen done Positive flu: will take today questions/concerns: tuesday night though she had a tonsil stone and gargled with salt water then woke with the swollen tonsils sat so not sure if it's a coincidence or not History of Present Illness - See staff HPI Review of Systems PHQ Score Initial Depression Screen Score: 1 SCORE Physical Exam Vitals & Measurements T: 36.9 ?C(Temporal Artery) HR: 76(Peripheral) RR: 16 BP: 120/66 SpO2: 98% HT: 65 in HT: 165.2 cm WT: 96.7 kg WT: 212.74 lb BMI: 35.43 General: alert, no acute distress ENMT: oral mucosa moist, Erythema of the soft palate. No tonsillar exudates. Tonsils are enlarged. Cardiovascular: normal peripheral perfusion Respiratory: respirations non labored Extremities: no deformity, no trauma Assessment/Plan 1. Strep throat (J02.0: Streptococcal pharyngitis) - Will use Augmentin - Will use Tylenol/Motrin for pain - Follow up PRN 2. Swollen tonsil (J35.1: Hypertrophy of tonsils) - As above. Ordered: Rapid Strep POC [id number] 3. BMI 35.0-35.9,adult (Z68.35: Body mass index [BMI] 35.0-35.9, adult) - BMI education uploaded 4. Class 1 obesity due to excess calories in adult (E66.09: Other obesity due to excess calories) - Diet and exercise advised 5. Nonsmoker (Z78.9: Other specified health status) - Please continue to not smoke Orders: amoxicillin-clavulanate , 1 tab(s), Oral, BID for 10 day(s), 20 tab(s), Refill(s) 0, [facility] #[id number], 165.2, cm, 07/11/23 13:14:00 EST, Height/Length Dosing, 96.7, kg, 07/11/23 13:14:00 EST, Weight Dosing Follow-up No qualifying data available Patient Education Laryngitis Problem List/Past Medical History Ongoing Anxiety Concentration deficit Mild episode of recurrent major depressive disorder Strep throat Historical No qualifying data Procedure/Surgical History section. Medications Augmentin 875 mg-125 mg Tab, 1 tab(s), Oral, BID phentermine 37.5 mg oral capsule, 37.5 mg= 1 cap(s), Oral, Daily, 1 refills Allergies No Known Medication Allergies Social History Tobacco Never (less than 100 in lifetime) Tobacco Use:. Never Smokeless Tobacco Use:. Household tobacco concerns: No., 07/11/2023 Family History Alcoholism: Grandparent. Depression: Mother. Stroke: Grandparent. Immunizations Vaccine Date Status influenza virus vaccine, inactivated 08/14/2021 Recorded SARS-CoV-2 (COVID-19) mRNA BNT-162b2 vax 08/14/2021 Recorded SARS-CoV-2 (COVID-19) mRNA BNT-162b2 vax 11/20/2020 Recorded SARS-CoV-2 (COVID-19) mRNA BNT-162b2 vax 10/31/2020 Recorded influenza virus vaccine, inactivated 07/01/2019 Recorded influenza virus vaccine, inactivated 05/16/2018 Recorded Lab Results Ambulatory Point of Care Results Rapid Strep POC Result: Positive (07/11/23 13:23:00) Normal [facility] Comment on above: Result Comment: Elec tronically Signed By: Thee SONG, Fiordaliza Andrew.br\Date and Time Signed: 07/11/23 13:30 EST Patient Educationon 07-11-20 23 Patient Education ENT Laryngitis Laryngitis is inflammation of the vocal cords that causes symptoms such as hoarseness or loss of voice. The vocal cords are two bands of muscles in your throat. When you speak, these cords come together and vibrate. The vibrations come out through your mouth as sound. When your vocal cords are inflamed, your voice sounds different. Laryngitis can be temporary (acute) or long-term (chronic). Most cases of acute laryngitis improve with time. Chronic laryngitis is laryngitis that lasts for more than 3 weeks. What are the causes? Acute laryngitis may be caused by: ? A viral infection. ? Lots of talking, yelling, or singing. This is also called vocal strain. ? A bacterial infection. Chronic laryngitis may be caused by: ? Vocal strain or an injury to the vocal cords. ? Acid reflux (gastroesophageal reflux disease, or GERD). ? Allergies, a sinus infection, or postnasal drip. ? Smoking. ? Excessive alcohol use. ? Breathing in chemicals or dust. ? Growths on the vocal cords. What increases the risk? The following factors may make you more likely to develop this condition: ? Smoking. ? Alcohol abuse. ? Having allergies. ? Chronic irritants in the workplace, such as toxic fumes. What are the signs or symptoms? Symptoms of this condition may include: ? Low, hoarse voice. ? Loss of voice. ? Dry cough. ? Sore or dry throat. ? Stuffy or congested nose. How is this diagnosed? This condition may be diagnosed based on: ? Your symptoms and a physical exam. ? Throat culture. ? Blood test. ? A procedure in which your health care provider looks at your vocal cords with a mirror or viewing tube (laryngoscopy). How is this treated? Treatment for laryngitis depends on what is causing it. Usually, treatment involves resting your voice and using medicines to soothe your throat. If your laryngitis is caused by a bacterial infection, you may need to take antibiotic medicine. If your laryngitis is caused by a growth, you may need to have a procedure to remove it. Follow these instructions at home: Medicines ? Take rbzy-hqr-tfhtijq and prescription medicines only as told by your health care provider. ? If you were prescribed an antibiotic medicine, take it as told by your health care provider. Do not stop taking the antibiotic even if you start to feel better. ? Use throat lozenges or sprays to soothe your throat as told by your health care provider. General instructions ? Talk as little as possible. To do this: ? Write instead of talking. Do this until your voice is back to normal. ? Avoid whispering, which can cause vocal strain. ? Gargle with a mixture of salt and water 3?4 times a day or as needed. To make salt water, completely dissolve ??1 tsp (3?6 g) of salt in 1 cup (237 mL) of warm water. ? Drink enough fluid to keep your urine pale yellow. ? Breathe in moist air. Use a humidifier if you live in a dry climate. ? Do not use any products that contain nicotine or tobacco. These products include cigarettes, chewing tobacco, and vaping devices, such as e-cigarettes. If you need help quitting, ask your health care provider. Contact a health care provider if: ? You have a fever. ? You have increasing pain. ? Your symptoms do not get better in 2 weeks. Get help right away if: ? You cough up blood. ? You have difficulty swallowing. ? You have trouble breathing. Summary ? Laryngitis is inflammation of the vocal cords that causes symptoms such as hoarseness or loss of voice. ? Laryngitis can be temporary or long-term. ? Treatment for laryngitis depends on the cause. It often involves resting your voice and using medicine to soothe your throat. ? Get help right away if you have difficulty swallowing or breathing or if you cough up blood. This information is not intended to replace advice given to you by your health care provider. Make sure you discuss any questions you have with your health care provider. Document Revised: 10/05/2021 Document Reviewed: 10/05/2021 [employer] Patient Education ? 2022 [employer] [facility] Ambulatory Visit Summaryon 1 08-13-2022 Ambulatory Visit Summary CHIKIS MEJIA :1995 Visit Date:06/13/2023 Ambulatory Visit Instructions Your Diagnosis Anxiety Mild episode of recurrent major depressive disorder Your Care Team Attending Physician - Fiordaliza Chairez MD. Primary Care Physician - Fiordaliza Chairez MD. This Is Your Medications List phentermine (phentermine 37.5 mg oral capsule) Procedures Performed section. Discharge Vitals Heart Rate (Peripheral) 75 Respiratory Rate 16 Blood Pressure 134/88 Height 165.2 cm Height 65 in Weight 98.5 kg Weight 216.7 lb BMI 36.09 What to do next Scheduled Follow-Up Appointments Tuesday 8:00 AM EST With: Fiordaliza Chairez MD Where: [facility] Ambulatory Visit Summary CHIKIS MEJIA :1995 Visit Date:06/13/2023 Ambulatory Visit Instructions Your Diagnosis Anxiety Mild episode of recurrent major depressive disorder Your Care Team Attending Physician - Fiordaliza Chairez MD Primary Care Physician - Fiordaliza Chairez MD This Is Your Medications List phentermine (phentermine 37.5 mg oral capsule) Procedures Performed section. Discharge Vitals Heart Rate (Peripheral) 75 Respiratory Rate 16 Blood Pressure 134/88 Height 165.2 cm Height 65 in Weight 98.5 kg Weight 216.7 lb BMI 36.09 What to do next Scheduled Follow-Up Appointments Tuesday 8:00 AM EST With: Fiordaliza Chairez MD Where: [facility] Family Medicine Office/Clini c Noteon 06-13-2023 Family Medicine Office/Clinic Note HPI Staff Chikis is a 27 year old female presenting for follow up mood and weight Weight management Sleeping well:Yes, 6-8 hours Chest pain:No Tremors:No Headaches:No Heart fluttering:No Blurred Vision:No Weight last visit: 99.7kg/219.34 Weight this visit:98.5/216.7 Follow up for Mental Status: Medication adherence- Yes, takes medication as prescribed Medication refill needed: _ Suicidal thoughts-Not at this time Most recent ADRIANA:0 Most recent PHQ:0 flu: Yes. Review of Systems PHQ Score Initial Depression Screen Score: 0 SCORE Physical Exam Vitals & Measurements HR: 75(Peripheral) RR: 16 BP: 134/88 SpO2: 95% HT: 65 in HT: 165.2 cm WT: 98.5 kg WT: 216.7 lb BMI: 36.09 Assessment/Plan 1. Anxiety (F41.9: Anxiety disorder, unspecified) - Under control - Not on meds - Will monitor Ordered: phentermine, 37.5 mg = 1 cap(s), Oral, Daily, please fill after 05/10, # 30 cap(s), Refills(s) 1, Pharmacy: [facility] #[id number], 165.2, cm, 06/13/23 16:22:00 EST, Height/Length Dosing, 98.5, kg, 06/13/23 16:22:00 EST, Weight Dosing 2. Mild episode of recurrent major depressive disorder (F33.0: Major depressive disorder, recurrent, mild) - In remission. - No issues at this time Ordered: phentermine, 37.5 mg = 1 cap(s), Oral, Daily, please fill after 05/10, # 30 cap(s), Refills(s) 1, Pharmacy: [facility] #[id number], 165.2, cm, 06/13/23 16:22:00 EST, Height/Length Dosing, 98.5, kg, 06/13/23 16:22:00 EST, Weight Dosing 3. Excessive dietary caloric intake (R63.2: Polyphagia) - Doing well. Continue on Adipex-P. - Follow up in 2 months. Ordered: phentermine, 37.5 mg = 1 cap(s), Oral, Daily, please fill after 05/10, # 30 cap(s), Refills(s) 1, Pharmacy: [facility] #[id number], 165.2, cm, 06/13/23 16:22:00 EST, Height/Length Dosing, 98.5, kg, 06/13/23 16:22:00 EST, Weight Dosing BMI 38.0-38.9,adult (Z68.38: Body mass index [BMI] 38.0-38.9, adult) Ordered: phentermine, 37.5 mg = 1 cap(s), Oral, Daily, please fill after 05/10, # 30 cap(s), Refills(s) 1, Pharmacy: [facility] #[id number], 165.2, cm, 06/13/23 16:22:00 EST, Height/Length Dosing, 98.5, kg, 06/13/23 16:22:00 EST, Weight Dosing Class 1 obesity due to excess calories in adult (E66.09: Other obesity due to excess calories) Ordered: phentermine, 37.5 mg = 1 cap(s), Oral, Daily, please fill after 05/10, # 30 cap(s), Refills(s) 1, Pharmacy: [facility] #[id number], 165.2, cm, 06/13/23 16:22:00 EST, Height/Length Dosing, 98.5, kg, 06/13/23 16:22:00 EST, Weight Dosing Concentration deficit (R41.840: Attention and concentration deficit) Ordered: phentermine, 37.5 mg = 1 cap(s), Oral, Daily, please fill after 05/10, # 30 cap(s), Refills(s) 1, Pharmacy: [facility] #[id number], 165.2, cm, 06/13/23 16:22:00 EST, Height/Length Dosing, 98.5, kg, 06/13/23 16:22:00 EST, Weight Dosing Follow-up No qualifying data available Problem List/Past Medical History Ongoing Anxiety Concentration deficit Mild episode of recurrent major depressive disorder Historical No qualifying data Procedure/Surgical History section. Medications phentermine 37.5 mg oral capsule, 37.5 mg= 1 cap(s), Oral, Daily, 1 refills Allergies No Known Medication Allergies Social History Tobacco Never (less than 100 in lifetime) Tobacco Use:. Never Smokeless Tobacco Use:. Household tobacco concerns: No., 06/13/2023 Family History Alcoholism: Grandparent. Depression: Mother. Stroke: Grandparent. Immunizations Vaccine Date Status influenza virus vaccine, inactivated 08/14/2021 Recorded SARS-CoV-2 (COVID-19) mRNA BNT-162b2 vax 08/14/2021 Recorded SARS-CoV-2 (COVID-19) mRNA BNT-162b2 vax 11/20/2020 Recorded SARS-CoV-2 (COVID-19) mRNA BNT-162b2 vax 10/31/2020 Recorded influenza virus vaccine, inactivated 07/01/2019 Recorded influenza virus vaccine, inactivated 05/16/2018 Recorded Normal [facility] Comment on above: Result Comment: Elec tronically Signed By: Thee SONG, Fiordaliza Andrew.br\Date and Time Signed: 06/13/23 16:52 EST PAP ACOG PANEL 2: 21 to 29on 06-10-2022 . . Normal [facility] Comment on above: Result Comment: Perf ormed at: [facility] Performed By: #### [id number] #### [facility] [address] [place] [address] Dr. Liz Paula DIAGNOSIS: Comment Normal [facility] Comment on above: Result Comment: NEGA TIVE FOR INTRAEPITHELIAL LESION OR MALIGNANCY. Performed at: [facility] Performed By: #### [id number] #### [facility] [address] [place] [address] Dr. Liz Paula Methodology: Comment Normal [facility] Comment on above: Result Comment: This liquid based ThinPrep(R) pap test was screened with the use of an image guided system. Performed at: [facility] Performed By: #### [id number] #### [facility] [address] [place] [address] Dr. Liz Paula Note: Comment Normal [facility] Comment on above: Result Comment: The Pap smear is a screening test designed to aid in the detection of premalignant and malignant conditions of the uterine cervix. It is not a diagnostic procedure and should not be used as the sole means of detecting cervical cancer. Both false-positive and false-negative reports do occur. . Performed at: [facility] Performed By: #### [id number] #### [facility] [address] [place] [address] Dr. Liz Paula Performed by: Comment Normal [facility] Comment on above: Result Comment: Germaine Espitia, Helicopter Dispatcher (ASCP) Performed at: [facility] Performed By: #### [id number] #### [facility] [address] [place] [address] Dr. Liz Paula Reflex Criteria: Comment Normal [facility] Comment on above: Result Comment: The HPV DNA reflex criteria were not met with this specimen result therefore, no HPV testing was performed. . Performed at: [facility] Performed By: #### [id number] #### [facility] [address] [place] [address] Dr. Liz Paula Specimen adequacy: Comment Normal [facility] Comment on above: Result Comment: Sati sfactory for evaluation. Endocervical and/or squamous metaplastic cells (endocervical component) are present. Performed at: [facility] Performed By: #### [id number] #### [facility] [address] [place] [address] Dr. Liz Paula Age Gdln ACOG Testing 21-29 Normal [facility] Comment on above: Performed By: #### [id number] #### [facility] [address] [id number] Liz Paula Encounters Encounter Date Encounter Type Care Provider Facility Start: 06-12-2024 ambulatory MD Fiordaliza Chairez Facil ity:[facility] Start: 04-16-2024 End: 04-16-2024 ambulatory MD Fiordaliza Chairez [facility] Start: 01-16-2024 End: 01-16-2024 ambulatory MD Fiordaliza Chairez Facility:[facility] Start: 12-19-2023 End: 12-19-2023 ambulatory MD Fiordaliza Chairez Facility:[facility] Start: 11-21-2023 End: 11-21-2023 ambulatory MD Fiordaliza Chairez Facility:[facility] Start: 10-17-2023 End: 10-17-2023 ambulatory MD Fiordaliza Chairez Facility:[facility] Start: 08-15-2023 End: 08-15-2023 ambulatory MD Fiordaliza Chairez Facility:[facility] Start: 07-11-2023 End: 07-11-2023 ambulatory MD Fiordaliza Chairez Facility:[facility] Start: 06-13-2023 End: 06-13-2023 ambulatory MD Fiordaliza Chairez Facility:[facility] Start: 06-03-2022 End: 06-03-2022 ambulatory FIORDALIZA CHAIREZ Facility:[facility] Start: 11-08-2018 End: 11-09-2018 Patient encounter procedure DEFAULT PHYSICIAN Facility:[facility] Payers Date Payer Category Payer Unknown [id number] 2.16.8 [id number] 1995 Unknown [id number] 2.16.84 [id number] 1995 Unknown [id number] 2.16.8 [id number] 1995 Unknown [id number] 2.16.8 [id number] 1995 Unknown [id number] 2.16.8 [id number] 1995 Unknown [id number] 2.16.8 [id number] 1995 Unknown [id number] 2.16.8 [id number] 1997 Unknown [id number] 2.16.8 [id number] 1995 Unknown [id number] 2.16.8 [id number] 1995 Unknown [id number] 2.16.8 [id number] 1995 Unknown [id number] 2.16.8 [id number] 1957 Private Health Insurance [id number] Unknown Summary Purpose Family History No Family History Records FoundNo Family History Records FoundNo Family History Records Found Advance Directives No Advanced Directives Records FoundNo Advanced Directives Records FoundNo Advanced Directives Records Found Additional Source Comments INFORMATION SOURCE (unrecogn ized section and content) DATE CREATED AUTHOR 11/09/2018 [facility] DATE CREATED AUTHOR AUTHOR'S ORGANIZ ATION 06/11/2022 [facility] DATE CREATED AUTHOR AUTHOR'S ORGANIZ ATION 06/02/2024 [facility] FOR RECORDS PERTAINING TO PATIENTS WHO ARE OR HAVE BEEN ENROLLED IN A CHEMICAL DEPENDENCY/SUBSTANCEABUSE PROGRAM, SOME INFORMATION MAY BE OMITTED. This clinical summary was aggregated from multiple sources. Caution should be exercised in using it in the provision of clinical care. This summary normalizes information from multiple sources, and as a consequence, information in this document may materially change the coding, format and clinical context of patient data. In addition, data may be omitted in some cases. CLINICAL DECISIONS SHOULD BE BASED ON THE PRIMARY CLINICAL RECORDS. [employer] [facility]. provides no warranty or guarantee of the accuracy or completeness of information in this document.
== END 2024-06-12 21:51 | disposition home or self-care (01) ==
LOC: LAB 21:50
PROVIDERS: PCP Obstetrics & Gynecology; Visit Provider Obstetrics & Gynecology
DX: Z01.419 Encounter for gynecological examination (general) (routine) without abnormal findings (principal)
CPT/HCPCS: 88175

== ENCOUNTER 2025-03-12 10:17 | Outpatient (OUT) | payer BC, SELFPAY ==
--- OUTSIDE RECORDS SUMMARY | 2025-03-12 09:10 | XMS_ITS | Encounter Summary ---
Author Organization [facility] Address [address] [place] [address] Care Team Providers Care Postal Sorting Officer Name Role Phone Nikita Kingston MD Primary Care Provider [phone] Reason for Visit * Reason Comments Menstrual Problem Encounter Details Date Type Department Care Team (Late st Contact Info) Description 03/12/2025 9:10 AM EDT Office Visit [facility] [address] [place] [phone] Breezy Bronson DO [address] [place], [place] [phone] Missed menses; Irregular menses; PCOS (polycystic ovarian [...] 8:51 AM EST documented in this encounter Plan of Treatment Upcoming Encounters Date Type Department Care Team (Late st Contact Info) Description 03/19/2025 11:00 AM EDT Ancillary Procedure [facility] [address] [place] [address] [place] [address] 07/15/2025 9:20 AM EST Procedure Visit [facility] [address] [place] [phone] Breezy Bronson DO [address] [place] [address] [place] [address] Scheduled Orders Name Type Priority Associated Diagnoses [...] ovarian syndrome) Expected: 03/12/2025 (Approximate), Expires: 03/12/2026 US Pelvis w/ TV Imaging Routine Missed menses Irregular menses PCOS (polycystic ovarian syndrome) Expected: 03/12/2025, Expires: 03/12/2026 Prolactin Lab Routine Missed menses Irregular menses Ordered: 03/12/2025 Antimullerian hormone (AMH) Lab Routine Missed menses Irregular menses Expected: 03/12/2025 (Approximate), Expires: 03/12/2026 documented as of this encounter Procedures Procedure Name Priority Date/Time Associated Diagnosis Comments POCT , URINE Routine 03/12/2025 9:38 AM EDT Missed menses documented in this encounter Results * POCT , urine manually resulted (03/12/2025 9:38 AM EDT) Preg Test, Ur Negative Negative Urine 03/12/2025 9:38 AM EDT Breezy Audie DO POINT OF CARE TEST ENTER/EDIT OR DERABLES Final Result documented in this encounter Visit Diagnoses Diagnosis Missed menses Irregular menses Irregular menstrual cycle PCOS (polycystic ovarian syndrome) Polycystic ovaries documented in this encounter Care Teams Postal Sorting Officer Relationship Specialty Start Date End Date Nikita Kingston MD [address] [place] [address] PCP - General Family Medicine 06/09/23 documented as of this encounter
--- OUTSIDE RECORDS SUMMARY | 2025-03-12 10:26 | XMS_ITS | Encounter Summary ---
Author Organization [facility] Address [address] [place] [address] Care Team Providers Care Color Card Maker Name Role Phone Nikita Kingston MD Primary Care Provider [phone] Encounter Details Date Type Department Care Team (Late Contact Info) Description 03/12/2025 Bamboo flowsheet [facility] [address] [place] [address] Breezy Bronson DO [address] [place], [facility] Social History Tobacco Use Types Packs/Day Years [...] on file documented as of this encounter Plan of Treatment Upcoming Encounters Date Type Department Care Team (Late st Contact Info) Description 03/19/2025 11:00 AM EDT Ancillary Procedure [facility] [place] [place] [address] 07/15/2025 9:20 AM EST Procedure Visit [facility] [address] [place] [address] Audie, Breezy, [address] [place] [address] documented as of this encounter Visit Diagnoses Not on filedocumented in this encounter Care Teams Color Card Maker Relationship Specialty Start Date End Date Nikita Kingston MD [address] [place] [address] PCP - General Family Medicine 06/09/23 documented as of this encounter
--- OUTSIDE RECORDS SUMMARY | 2025-03-12 10:26 | XMS_ITS | Encounter Summary ---
Author Organization [facility] Address [address] [place] [address] Care Team Providers Care Tick Sewer Name Role Phone Nikita Kingston MD Primary Care Provider [phone] Encounter Details Date Type Department Care Team (Latest Contact Info) Description 03/11/2025 Travel Social History Tobacco Use Types Packs/Day Years [...] 11:00 AM EDT Ancillary Procedure [facility] [address] [place] [phone] 07/15/2025 9:20 AM EST Procedure Visit [facility] [address] [place] [address] Breezy Bronson DO [address] [place], [place] [phone] documented as of this encounter Visit Diagnoses Not on filedocumented in this encounter Care Teams Tick Sewer Relationship Specialty Start Date End Date Nikita Kingston MD [address] [place] [address] PCP - General Family Medicine 06/09/23 documented as of this encounter
--- OUTSIDE RECORDS SUMMARY | 2025-03-12 10:26 | XMS_ITS | Encounter Summary ---
Author Organization [facility] Address [address] [place] [address] Care Team Providers Care Neonatal Specialist Name Role Phone Nikita Kingston MD Primary Care Provider [phone] Encounter Details Date Type Department Care Team (Late st Contact Info) Description 06/07/2024 Orders Only [facility] [place] [address] [place] [address] Marilou Ochoa LPN [address] [place] [facility] Social History Tobacco Use Types Packs/Day Years [...] AM EDT Ancillary Procedure [facility] [place] [address] [place] [address] 07/15/2025 9:20 AM EST Procedure Visit [facility] [place] [address] [place] [address] Breezy Bronson DO [facility] [place] [address] documented as of this encounter Procedures Procedure Name Priority Date/Time Associated Diagnosis Comments PAP SMEAR Routine 06/09/2023 12:00 AM EST documented in this encounter Results * Pap Smear (06/09/2023 12:00 AM EST) Swab Cervical swab / Unknown Audie Nurse [facility] Ob LAB CYTOLOGY ORDERABLES Final Result EXTERNAL LAB documented in this encounter Visit Diagnoses Not on filedocumented in this encounter Care Teams Neonatal Specialist Relationship Specialty Start Date End Date Nikita Kingston MD [address] [place] [address] PCP - General Family Medicine 06/09/23 documented as of this encounter
--- OUTSIDE RECORDS SUMMARY | 2025-03-12 10:26 | XMS_ITS | Clinical Summary ---
Author Organization [facility] Address [address], [address] [place] [address] Care Team Providers Care Market Development Analyst Name Role Phone Unavailable Primary Care Provider Unavailabl e Social History Tobacco Use Types Packs/Day Years Used Date Smoking Tobacco: Never Assessed Exercise Vital Sign Answer Date Recorde d On average, how many days pe r week do you engage in moderate to strenuous exercise (like a brisk walk)? 3 days 03/11/2025 On average, how many minutes do you engage in exercise at this level? 60 min 03/11/2025 Comments Unknown Sex and Gender Information Value Date Recorded Sex Assigned at Female 03/11/2025 9:06 PM EDT Legal Sex Female 8:17 PM EDT Gender Identity Female 03/11/2025 9:06 PM EDT Sexual Orientation Straight 03/11/2025 9: 06 PM EDT Plan of Treatment Upcoming Encounters Date Type Department Care Team (Late st Contact Info) Description 03/13/2025 2:20 PM EDT Office Visit [facility] [address] [place] [phone] Luma Freeman, LEATHA - PERSONAL LINES AGENT [address] [place] [address] Establish care. Health Maintenance Due Date Last Done Comments Depression Screen 2009 Varicella vaccine (1 of 2 - 13+ 2-dose series) 2010 HIV screen 2012 Hepatitis C screen 01/01/2016 DTaP/Tdap/Td vaccine (1 - Tdap) 2016 Hepatitis B vaccine (1 of 3 - 19+ 3-dose series) 2016 Pap smear 2018 COVID-19 Vaccine (1 - 2023-2 5 season) 2024 Flu vaccine (#1) 03/01/2025 HPV vaccine (No Doses Required) Completed Hepatitis A vaccine Aged Out No longe r eligible based on patient's age to complete this topic Hib vaccine Aged Out No longer eligi ble based on patient's age to complete this topic Meningococcal (ACWY) vaccine Aged Out No longer eligible based on patient's age to complete this topic Meningococcal B vaccine Aged Out No l onger eligible based on patient's age to complete this topic Pneumococcal 0-49 years Vaccine Aged Out No longer eligible based on patient's age to complete this topic Polio vaccine Aged Out No longer elig ible based on patient's age to complete this topic Insurance BCBS
--- OUTSIDE RECORDS SUMMARY | 2025-03-12 10:26 | XMS_ITS | Clinical Summary ---
Author Organization [facility] Address [address] [place] [address] Care Team Providers Care Retoucher Name Role Phone Nikita Kingston MD Primary Care Provider [phone] Allergies No known active allergies Medications lisdexamfetamine (Vyvanse) 30 MG capsule Take 30 mg by mouth in the morning. Active Vit-Fe Fumarate-FA ( VITAMIN PO) Take by mouth Acti ve LYSINE PO Take by mouth Active medroxyPROGESTER one (Provera) 10 MG tabletIndication s:Irregular menses Take 1 tablet (10 mg) by mouth Daily Take 1 tablet by mouth daily for 7 days beginning on day 16 of the menstrual cycle. 14 tablet 3 03/12/20 25 026 Active Wellbutrin XL 150 MG 24 hr tablet Take 150 mg by mouth 04/16/20 24 025 Discontinu ed(Therapy completed) Levonorgestrel (Mirena, 52 MG,) 20 MCG/DAY intrauterine device as directed Intrauterine 025 Discontinu ed(Therapy completed) nitrofurantoin, macrocrystal-mon ohydrate, (Macrobid) 100 MG capsuleIndicatio ns:Urinary tract infection without hematuria, site unspecified Take 1 capsule (100 mg) by mouth in the morning and 1 capsule (100 mg) before bedtime. Do all this for 7 days. 14 capsule 02/21/20 25 025 Encounters Date Type Department Care Team Description 03/12/2025 9:10 AM EDT Office Visit [facility] [address] [facility] [place] [id number] Breezy Bronson DO Missed menses; Irregular menses; PCOS (polycystic ovarian syndrome) 03/12/2025 Bamboo flowsheet [facility] [address] [facility] [place] [address] Breezy Bronson DO 03/11/2025 Travel 02/20/2025 Telephone [facility] [address] [place] [address] [place] [address] Francine Carlos MA from Last 3 Months Social History Tobacco Use Types Packs/Day Years Used Date Smoking Tobacco: Never Smokeless Tobacco: Never Tobacco Cessation:Counseling Given: Not Answered Alcohol Use Standard Drinks/Week Comments Never 0 (1 standard drink = 0.6 oz pur e alcohol) Comments Unknown Sex and Gender Information Value Date Recorded Sex Assigned at Female 03/07/2023 10:15 AM EDT Legal Sex Female 11:47 PM EDT Gender Identity Female 03/07/2023 10:15 AM EDT Sexual Orientation Not on file Last Filed Vital Signs Vital Sign Reading Time Taken Comments Blood Pressure 126/76 03/12/2025 9:33 AM EDT Pulse - - Temperature - - Respiratory Rate - - Oxygen Saturation - - Inhaled Oxygen Concentration - - Weight 106 kg (233 lb 12.8 oz) 03/12/2025 9:33 A M EDT Height 167.6 cm (5' 6 ) 06/09/2023 8:51 AM EST Body Mass Index 37.74 06/09/2023 8:51 AM EST Plan of Treatment Upcoming Encounters Date Type Department Care Team (Late st Contact Info) Description 03/19/2025 11:00 AM EDT Ancillary Procedure [facility] [address] [place] [address] [place] [phone] 07/15/2025 9:20 AM EST Procedure Visit [facility] [address] [place] [address] [place] [phone] Breezy Bronson, [address] [place] [address] [address] [place], [place] [id number] Health Maintenance Due Date Last Done Comments Influenza Vaccine (#1) 2025 4, 08/14/2021, 07/01/2019, Additional history exists Procedures Procedure Name Priority Date/Time Associated Diagnosis Comments POCT , URINE Routine 03/12/2025 9:38 AM EDT Missed menses from Last 3 Months Results * POCT , urine manually resulted (03/12/2025 9:38 AM EDT) Preg Test, Ur Negative Negative Urine 03/12/2025 9:38 AM EDT Breezy Bronson DO POINT OF CARE TEST ENTER/EDIT OR DERABLES Final Result from Last 3 Months Insurance [facility] Care Teams Retoucher Relationship Specialty Start Date End Date Nikita Kingston MD [address] [place] [address] PCP - General Family Medicine 06/09/23
[2025-03-12 11:12] LABS: Hematocrit 42.1 % (36.0-48.0); Hemoglobin 14.6 g/dL (12.0-16.0); Immature Granulocytes Abs Auto 0.04 10^3/uL (0.00-0.03); Immature Granulocytes Pct Auto 0.4 % (0.0-0.5); Lymphocytes Absolute Auto 1.9 10^3/uL (1.2-3.8); Mean Corpuscular HGB Conc 34.7 g/dL (29.9-35.2); Mean Corpuscular Hemoglobin 29.8 pg (26.7-34.0); Mean Corpuscular Volume 85.9 fL (81.0-99.0); Platelet Count 287 10^3/uL (150-450); Red Blood Count 4.90 10^6/uL (4.20-5.40); White Blood Count 10.6 10^3/uL (4.0-11.0)
[2025-03-12 11:38] LABS: Thyroid Stimulating Hormone 0.787 uIU/mL (0.358-3.740)
[2025-03-13 12:09] LABS: FSH 2.5 mIU/mL (.)
== END 2025-03-12 10:18 | disposition home or self-care (01) ==
PROVIDERS: PCP Nurse Practitioner Family; Visit Provider Obstetrics & Gynecology
DX: N92.6 Irregular menstruation, unspecified (principal); E28.2 Polycystic ovarian syndrome
CPT/HCPCS: 36415; 82397; 82626; 82627; 83001; 83002; 83036; 84146; 84439; 84443; 84702; 85025

== ENCOUNTER 2025-03-25 12:23 | Outpatient (RCR) | payer BC, SELFPAY | END 2025-03-30 23:59 | disposition home or self-care (01) | LOC: LAB 12:23 | PROVIDERS: PCP Nurse Practitioner Family; Visit Provider Obstetrics & Gynecology | DX: N92.6 Irregular menstruation, unspecified (principal); E28.2 Polycystic ovarian syndrome; Z32.01 Encounter for pregnancy test, result positive | CPT/HCPCS: 36415; 84702 ==

== ENCOUNTER 2025-03-27 10:39 | Outpatient (OUT) | payer BC, SELFPAY ==
--- OUTSIDE RECORDS SUMMARY | 2025-03-12 09:10 | XMS_ITS | Encounter Summary ---
Author Organization [facility] Address [address] [place] [address] Care Team Providers Care Internal Audit Senior Manager Name Role Phone Nikita Kingston MD Primary Care Provider [phone] Reason for Visit * Reason Comments Menstrual Problem Encounter Details Date Type Department Care Team (Late st Contact Info) Description 03/12/2025 9:10 AM EDT Office Visit [facility] [address] [place] [phone] Breezy Bronson DO [address] [place], [place] [id number] Missed menses; Irregular menses; PCOS (polycystic ovarian syndrome) Social History Tobacco Use Types Packs/Day Years Used Date Smoking Tobacco: Never Smokeless Tobacco: Never Alcohol Use Standard Drinks/Week Comments Never 0 (1 standard drink = 0.6 oz pur e alcohol) Comments Unknown Sex and Gender Information Value Date Recorded Sex Assigned at Female 03/07/2023 10:15 AM EDT Legal Sex Female 11:47 PM EDT Gender Identity Female 03/07/2023 10:15 AM EDT Sexual Orientation Not on file documented as of this encounter Last Filed Vital Signs Vital Sign Reading Time Taken Comments Blood Pressure 126/76 03/12/2025 9:33 AM EDT Pulse - - Temperature - - Respiratory Rate - - Oxygen Saturation - - Inhaled Oxygen Concentration - - Weight 106 kg (233 lb 12.8 oz) 03/12/2025 9:33 A M EDT Height - - Body Mass Index 37.74 06/09/2023 8:51 AM EST documented in this encounter Progress Notes * Darrel Junior, HSE SPECIALIST - 03/12/2025 9:10 AM EDT Reason for Appointment: Patient ID: Chikis Pretty is a 29 y.o. female who presents for Menstrual Problem Patient presents today for Acute Visit. and Consult appointment. MEDICATIONS Current Outpatient Medications Medication Instructions lisdexamfetamine (VYVANSE) 30 mg, Every morning LYSINE PO Take by mouth Vit-Fe Fumarate-FA ( VITAMIN PO) Take by mouth ALLERGIES No Known Allergies PROBLEMS Active Ambulatory Problems Diagnosis Date Noted No Active Ambulatory Problems Resolved Ambulatory Problems Diagnosis Date Noted No Resolved Ambulatory Problems No Additional Past Medical History HISTORY PAST MEDICAL HISTORY SOCIAL HISTORY No past medical history on file. Social History Tobacco Use Smoking status: Never Smokeless tobacco: Never Substance Use Topics Alcohol use: Never Drug use: Never FAMILY HISTORY No family history on file. SURGICAL HISTORY Past Surgical History: Procedure Laterality Date SECTION, LOW TRANSVERSE REVIEW OF SYSTEMS Review of Systems: Review of Systems Constitutional: Negative. HENT: Negative. Eyes: Negative. Respiratory: Negative. Cardiovascular: Negative. Gastrointestinal: Negative. Genitourinary: Negative. Musculoskeletal: Negative. Skin: Negative. Neurological: Negative. All other systems reviewed and are negative. Hematological: Negative. Endocrine: Negative. Allergic/Immunologic: Negative. OBJECTIVE Objective: Physical Exam Constitutional: Appearance: Normal appearance. She is well-developed. Cardiovascular: Rate and Rhythm: Normal rate and regular rhythm. Pulmonary: Effort: Pulmonary effort is normal. Breath sounds: Normal breath sounds. Abdominal: General: Bowel sounds are normal. There is no distension. Palpations: Abdomen is soft. Tenderness: There is no abdominal tenderness. There is no guarding or rebound. Musculoskeletal: General: No swelling. Normal range of motion. Right lower leg: No edema. Left lower leg: No edema. Neurological: Mental Status: She is alert and oriented to person, place, and time. Skin: General: Skin is warm and dry. Psychiatric: Mood and Affect: Mood normal. Behavior: Behavior normal. Vitals and nursing note reviewed. Exam conducted with a city bus driver present. Vitals: Estimated body mass index is 37.74 kg/m?? as calculated from the following: Height as of 06/09/23: 5' 6 . Weight as of this encounter: 233 lb 12.8 oz. BP: 126/76 Patient's last menstrual period was 12/13/2024 (exact date). ASSESSMENT & PLAN ICD-10-CM 1. Missed menses N92.6 POCT , urine manually resulted hCG, quantitative, TSH T4, free CBC and differential Follicle stimulating hormone Luteinizing hormone Hemoglobin A1c DHEA-sulfate DHEA US Pelvis w/ TV Prolactin Antimullerian hormone (AMH) DHEA Antimullerian hormone (AMH) 2. Irregular menses N92.6 hCG, quantitative, TSH T4, free CBC and differential Follicle stimulating hormone Luteinizing hormone Hemoglobin A1c DHEA-sulfate DHEA US Pelvis w/ TV Prolactin Antimullerian hormone (AMH) DHEA Antimullerian hormone (AMH) 3. PCOS (polycystic ovarian syndrome) E28.2 hCG, quantitative, TSH T4, free CBC and differential Follicle stimulating hormone Luteinizing hormone DHEA-sulfate DHEA US Pelvis w/ TV DHEA Patient presents today to discuss fertility. Patient was given a standing lab order and ultrasound to have obtained. Rx for provera faxed to pharmacy to induce period. Patient was instructed to call the office once menstrual cycle begins so femara can be called into patients pharmacy. Patient has been instructed to take Femara on days 3-7 of cycle. On day 21 of cycle patient is to have progesterone labs drawn. Patient was advised to have intercourse on days 12, 14, 16, 18, and 20 of cycle. We will do three rounds of Femara and if patient has not conceived by then, we will perform HSG. Patienthas voiced understanding and will call our office for any further questions/concerns. Discussed semen analysis for partner if not conceived. Orders Placed This Encounter Procedures US Pelvis w/ TV hCG, quantitative, TSH T4, free CBC and differential Follicle stimulating hormone Luteinizing hormone Hemoglobin A1c DHEA-sulfate DHEA Prolactin Antimullerian hormone (AMH) POCT , urine manually resulted Follow Up: In four months unless needed sooner. Documented by Darrel Juniro LPN on behalf of: Breezy Bronson DO documented in this encounter Miscellaneous Notes * Addendum Note - Darrel Junior LPN - 03/12/2025 9:10 AM EDTAddended by: DARREL JUNIOR on: 03/13/2025 01:40 PM Modules accepted: Orders documented in this encounter Plan of Treatment Upcoming Encounters Date Type Department Care Team (Late st Contact Info) Description 07/15/2025 9:20 AM EST Procedure Visit [facility] [address] [place] [phone] Breezy Bronson DO [address] [place] [address] Scheduled Orders Name Type Priority Associated Diagnoses Orde r Schedule hCG, quantitative, Lab Routine Missed menses Irregular menses PCOS (polycystic ovarian syndrome) Ordered: 03/12/2025 TSH Lab Routine Missed menses Irregular menses PCOS (polycystic ovarian syndrome) Ordered: 03/12/2025 T4, free Lab Routine Missed menses Irregular menses PCOS (polycystic ovarian syndrome) Ordered: 03/12/2025 CBC and differential Lab Routine Missed menses Irregular menses PCOS (polycystic ovarian syndrome) Ordered: 03/12/2025 Follicle stimulating hormone Lab Routine Missed menses Irregular menses PCOS (polycystic ovarian syndrome) Ordered: 03/12/2025 Luteinizing hormone Lab Routine Missed menses Irregular menses PCOS (polycystic ovarian syndrome) Ordered: 03/12/2025 Hemoglobin A1c Lab Routine Missed menses Irregular menses Ordered: 03/12/2025 DHEA-sulfate Lab Routine Missed menses Irregular menses PCOS (polycystic ovarian syndrome) Ordered: 03/12/2025 DHEA Lab Routine Missed menses Irregular menses PCOS (polycystic ovarian syndrome) Expected: 03/12/2025 (Approximate), Expires: 03/12/2026 Prolactin Lab Routine Missed menses Irregular menses Ordered: 03/12/2025 Antimullerian hormone (AMH) Lab Routine Missed menses Irregular menses Expected: 03/12/2025 (Approximate), Expires: 03/12/2026 documented as of this encounter Procedures Procedure Name Priority Date/Time Associated Diagnosis Comments POCT , URINE Routine 03/12/2025 9:38 AM EDT Missed menses documented in this encounter Results * US Pelvis w/ TV (03/19/2025 11:13 AM EDT) Anatomical Region Laterality Modality Pelvis Ultrasound 03/21/2025 8:06 AM EDT Narrative 03/21/2025 8:06 AM EDT EXAM: US PELVIC COMPLETE W/ TV HISTORY: PCOS, AUB, no menstrual cycle since 11/2024. COMPARISON: None available. TECHNIQUE: Two-dimensional transabdominal grayscale ultrasound imaging of the pelvis was performed. Color flow Doppler imaging of the ovaries was also performed. Transvaginal was performed. FINDINGS: UTERUS 8.3 x 3.2 x 5.8 cm The uterus is anteverted in position and demonstrates a mildly heterogeneous echotexture. Multiple nabothian cysts are visualized within the cervix. ENDOMETRIUM 1.3 cm The endometrium demonstrates a normal, homogeneous echotexture. RIGHT OVARY 3.0 x 1.9 x 2.5 cm The right ovary demonstrates a normal echotexture with small follicles. The ovarian volume is 7 mL. There is normal color Doppler flow. LEFT OVARY 3.7 x 2.1 x 3.5 cm The left ovary demonstrates a normal echotexture with small follicles. The ovarian volume is 15 mL. There is normal color Doppler flow. There is a collapsing follicle visualized. Trace fluid is present within the cul-de-sac. IMPRESSION: 1. Mildly heterogeneous uterine echotexture. 2. Bilateral small ovarian follicles. Ovarian volumes are within normal limits. 3. Normal color Doppler flow within the bilateral ovaries. Interpreted by: Electronically signed by TALI PARRISH II, MD, PHD at 21-Mar-2025 08:05:10 AM [facility] Procedure Note Tali Parrish MD - 03/21/2025 EXAM: US PELVIC COMPLETE W/ TV HISTORY: PCOS, AUB, no menstrual cycle since 11/2024. COMPARISON: None available. TECHNIQUE: Two-dimensional transabdominal grayscale ultrasound imaging ofthe pelvis was performed. Color flow Doppler imaging of the ovaries wasalso performed. Transvaginal was performed. FINDINGS: UTERUS 8.3 x 3.2 x 5.8 cm The uterus is anteverted in position and demonstrates a mildlyheterogeneous echotexture. Multiple nabothian cysts are visualized withinthe cervix. ENDOMETRIUM 1.3 cm The endometrium demonstrates a normal, homogeneous echotexture. RIGHT OVARY 3.0 x 1.9 x 2.5 cm The right ovary demonstrates a normal echotexture with small follicles.The ovarian volume is 7 mL. There is normal color Doppler flow. LEFT OVARY 3.7 x 2.1 x 3.5 cm The left ovary demonstrates a normal echotexture with small follicles.The ovarian volume is 15 mL. There is normal color Doppler flow. Thereis a collapsing follicle visualized. Trace fluid is present within the cul-de-sac. IMPRESSION: 1. Mildly heterogeneous uterine echotexture. 2. Bilateral small ovarian follicles. Ovarian volumes are within normallimits. 3. Normal color Doppler flow within the bilateral ovaries. Interpreted by: Electronically signed by TALI PARRISH II, MD, PHD 08:05:10 AM [facility] us Breezy Audie DO IMG US PROCEDURES Final Result * POCT , urine manually resulted (03/12/2025 9:38 AM EDT) Preg Test, Ur Negative Negative Urine 03/12/2025 9:38 AM EDT us Breezy Audie DO POINT OF CARE TEST ENTER/EDIT OR DERABLES Final Result documented in this encounter Visit Diagnoses Diagnosis Missed menses Irregular menses Irregular menstrual cycle PCOS (polycystic ovarian syndrome) Polycystic ovaries Missed menses Irregular menses Irregular menstrual cycle PCOS (polycystic ovarian syndrome) Polycystic ovaries documented in this encounter Care Teams Internal Audit Senior Manager Relationship Specialty Start Date End Date Nikita Kingston MD [address] [place] [address] PCP - General Family Medicine 06/09/23 documented as of this encounter
--- OUTSIDE RECORDS SUMMARY | 2025-03-12 09:10 | XMS_ITS | Encounter Summary ---
Author Organization [facility] Address [address] [place] [address] Care Team Providers Care Log Data Technician Name Role Phone Nikita Kingston MD Primary Care Provider [phone] Reason for Visit * Reason Comments Menstrual Problem Encounter Details Date Type Department Care Team (Late st Contact Info) Description 03/12/2025 9:10 AM EDT Office Visit [facility] [address] [place] [phone] Breezy Bronson DO [address] [place], [place] [phone] Missed menses; Irregular menses; PCOS (polycystic ovarian [...] this encounter Progress Notes * Darrel Junior, PLANT OPERATIONS MANAGER - 03/12/2025 9:10 AM EDT Reason for [...] nursing note reviewed. Exam conducted with a bill clerk present. Vitals: Estimated body mass index is [...] months unless needed sooner. Documented by Darrel Junior LPN on behalf of: Breezy Bronson DO [...] EST Procedure Visit [facility] [address] [place] [address] Breezy Bronson DO [address] [facility] [place] [address] Scheduled Orders Name Type Priority Associated Diagnoses [...] II, MD, PHD at 21-Mar-2025 08:05:10 AM [facility] Procedure Note Tali Parrish MD - [...] TALI PARRISH II, MD, PHD 08:05:10 AM [facility] us Breezy Audie DO IMG US [...] ovaries documented in this encounter Care Teams Log Data Technician Relationship Specialty Start Date End Date Nikita Kingston MD [address] [place] [address] PCP - General Family Medicine 06/09/23 documented as of this encounter
--- OUTSIDE RECORDS SUMMARY | 2025-03-19 11:00 | XMS_ITS | Encounter Summary ---
Author Organization [facility] Address [address] [place] [address] Care Team Providers Care Geriatric Social Work Professor Name Role Phone Nikita Kingston MD Primary Care Provider [phone] Encounter Details Date Type Department Care Team (Latest Contact Info) Description 03/19/2025 11:00 AM EDT Ancillary Procedure [facility] [address] [facility] [place] [address] Missed menses; Irregular menses; PCOS (polycystic ovarian [...] Description 07/15/2025 9:20 AM EST Procedure Visit [facility] [address] [facility] [place] [address] Breezy Bronson DO [address] [place], [place] [phone] documented as of this encounter Procedures Procedure Name Priority Date/Time Associated Diagnosis Comments US PELVIC COMPLETE W/ TV Routine 03/19/2025 11:13 AM EDT Missed menses Irregular menses PCOS (polycystic ovarian syndrome) documented in this encounter Results * US [...] II, MD, PHD at 21-Mar-2025 08:05:10 AM [facility] Procedure Note Tali Parrish MD - [...] signed by TALI PARRISH II, MD, PHD [email or web address] 08:05:10 AM [facility] us Breezy Audietoño [facility] [place] PROCEDURES Final Result documented in this encounter Visit Diagnoses Diagnosis Missed menses Irregular menses Irregular menstrual cycle PCOS (polycystic ovarian syndrome) Polycystic ovaries documented in this encounter Care Teams Geriatric Social Work Professor Relationship Specialty Start Date End Date Nikita Kingston MD [address] [place] [address] PCP - General Family Medicine 06/09/23 documented as of this encounter
--- OUTSIDE RECORDS SUMMARY | 2025-03-19 11:00 | XMS_ITS | Encounter Summary ---
Author Organization [facility] Address [address] [place] [address] Care Team Providers Care Egyptologist Name Role Phone Nikita Kingston MD Primary Care Provider Encounter Details Date Type Department Care Team (Latest Contact Info) Description 03/19/2025 11:00 AM EDT Ancillary Procedure [facility] [address] [place] [address] Missed menses; Irregular menses; PCOS (polycystic [...] AM EST Procedure Visit [facility] [address] [place] [address] Breezy Bronson DO [address] [place], [place] [phone] documented as of this encounter Procedures Procedure [...] PHD at 21-Mar-2025 08:05:10 AM [facility] Procedure Note Tali Parrish MD - [...] signed by TALI PARRISH II, MD, PHD [id number] 08:05:10 AM [facility] us Breezy Audietoño [facility] [place] Final Result documented in this encounter Visit Diagnoses Diagnosis Missed menses Irregular menses Irregular menstrual cycle PCOS (polycystic ovarian syndrome) Polycystic ovaries documented in this encounter Care Teams Egyptologist Relationship Specialty Start Date End Date Nikita Kingston MD [address] [place] [address] PCP - General Family Medicine 06/09/23 documented as of this encounter
--- OUTSIDE RECORDS SUMMARY | 2025-03-25 12:24 | XMS_ITS | Encounter Summary ---
Author Organization [facility] Address [address] [place] [address] Care Team Providers Care Guest Experience Specialist Name Role Phone Nikita Kingston MD Primary Care Provider [phone] Encounter Details Date Type Department Care Team (Latest Contact Info) Description 03/13/2025 Travel Social History Tobacco Use Types Packs/Day [...] Description 07/15/2025 9:20 AM EST Procedure Visit [facility] [address] [place] [phone] Breezy Bronson DO [address] [facility] [address] [place] [phone] documented as of this encounter Visit Diagnoses Not on filedocumented in this encounter Care Teams Guest Experience Specialist Relationship Specialty Start Date End Date Nikita Kingston MD [address] [facility] [place] [address] PCP - General Family Medicine 06/09/23 documented as of this encounter
--- OUTSIDE RECORDS SUMMARY | 2025-03-25 12:24 | XMS_ITS | Encounter Summary ---
Author Organization [facility] Address [address] [place] [address] Care Team Providers Care Field Investigator Name Role Phone Nikita Kingston MD Primary Care Provider [phone] Encounter Details Date Type Department Care Team (Late st Contact Info) Description 03/25/2025 Telephone [facility] [address] [place] [address] [place] [address] Kassandra Charlton LPN Social History Tobacco Use Types Packs/Day Years [...] on file documented as of this encounter Miscellaneous Notes * Telephone Encounter - Kassandra Charlton LPN - 03/25/2025 10:09 AM EDT 0930 Patient called and LMOM that she was taking Provera and her last day of medication was to be on Tuesday. Patient voiced that she took a test and that it came back positive. Patient would like return call to discuss. 1005 Called patient and informed her that even if , Provera would not effect per provider. Patient aware lab order will be sent to [facility] to have drawn & nursing will reach out to patient once reviewed. Patient will call office once labs are drawn to then discuss plan of care. --ss documented in this encounter Plan of Treatment Upcoming Encounters Date Type Department Care Team (Late st Contact Info) Description 07/15/2025 9:20 AM EST Procedure Visit [facility] [address] [facility] [phone] Breezy Bronson DO [address] [facility] [place] [address] Scheduled Orders Name Type Priority Associated Diagnoses Orde r Schedule hCG, quantitative, Lab Routine Missed menses Irregular menses PCOS (polycystic ovarian syndrome) Expected: 03/25/2025 (Approximate), Expires: 03/25/2026 documented as of this encounter Visit Diagnoses Diagnosis Missed menses Irregular menses Irregular menstrual cycle PCOS (polycystic ovarian syndrome) Polycystic ovaries documented in this encounter Care Teams Field Investigator Relationship Specialty Start Date End Date Nikita Kingston MD [address] [place] [address] PCP - General Family Medicine 06/09/23 documented as of this encounter
--- OUTSIDE RECORDS SUMMARY | 2025-03-25 12:24 | XMS_ITS | Clinical Summary ---
Author Organization [facility] Address [address] [place] [address] Care Team Providers Care School Social Worker Name Role Phone Nikita Kingston MD Primary Care Provider [phone] Allergies No known active allergies Medications lisdexamfetamine (Vyvanse) 30 MG capsule Take 30 mg by mouth in the morning. Active Vit-Fe Fumarate-FA ( VITAMIN PO) Take by mouth Acti ve LYSINE PO Take by mouth Active medroxyPROGESTER one (Provera) 10 MG tabletIndication s:Irregular menses Take 1 tablet (10 mg) by mouth Daily Take 1 tablet by mouth daily 10 tablet 3 03/13/20 25 026 Active Wellbutrin XL 150 MG [...] 7 days. 14 capsule 02/21/20 25 025 medroxyPROGESTER one (Provera) 10 MG tabletIndication s:Irregular menses Take 1 tablet (10 mg) by mouth Daily Take 1 tablet by mouth daily for 7 days beginning on day 16 of the menstrual cycle. 14 tablet 3 03/12/20 025 Discontinu ed(Other) Encounters Date Type Department Care Team Description 03/25/2025 Telephone [facility] [place] [address] Kassandra Charlton LPN 03/19/2025 11:00 AM EDT Ancillary Procedure [facility] [place] [address] Missed menses; Irregular menses; PCOS (polycystic ovarian syndrome) 03/19/2025 Travel 03/13/2025 Travel 03/12/2025 9:10 AM ED[place] [address] Breezy Bronson DO Missed menses; Irregular menses; PCOS (polycystic ovarian syndrome) 03/12/2025 Clinisync Result Encounter [facility] External Department Unsolicited Breezy Bronson DO 03/12/2025 Refill [facility] [place] [address] Breezy Bronson, DO Irregular menses 03/12/2025 Bamboo flowsheet [facility] [address] [place] [address] Breezy Bronson, 03/11/2025 Travel 02/20/2025 Telephone [facility] [place] [address] Francine Carlos MA from Last 3 [...] EST Procedure Visit [facility] [address] [facility] [place] [phone] AudieBreezy lundberg DO [address] [facility] [address] Health Maintenance Due Date Last Done Comments Influenza Vaccine (#1) 2025 4, 08/14/2021, 07/01/2019, Additional history exists Procedures Procedure Name Priority Date/Time Associated Diagnosis Comments US PELVIC COMPLETE W/ TV Routine 025 11:13 AM EDT Missed menses Irregular menses PCOS (polycystic ovarian syndrome) ALL DEHYDROEPIANDROSTERONE Routine 03/12 10:51 AM EDT ALL ANTI-MULLERIAN HORMONE Routine 03/12 10:51 AM EDT TBH PROLACTIN Routine 03/12/2025 10:51 AM EDT ALL FOLLICLE STIMULATING HORMONE Routine 03/12/2025 10:51 AM EDT ALL LUTEINIZING HORMONE Routine 03/12/20 25 10:51 AM EDT ALL DHEA SULFATE Routine 03/12/2025 10:51 AM EDT ALL THYROXINE (T4) FREE Routine 03/12/20 25 10:51 AM EDT TBH PREG QUANT HCG Routine 03/12/2025 10:51 AM EDT ALL THYROID STIM HORMONE Routine 025 10:51 AM EDT MLR HEMOGLOBIN A1C Routine 03/12/2025 10:51 AM EDT ALL CBC WITH AUTO DIFF Routine 10:51 AM EDT POCT , URINE Routine 03/12/2025 9:38 AM EDT Missed menses from Last 3 Months Results * US Pelvis w/ TV (03/19/2025 [...] II, MD, PHD at 21-Mar-2025 08:05:10 AM [facility] Procedure Note Tali Parrish MD - [...] signed by TALI PARRISH II, MD, PHD [id number] 08:05:10 AM [facility] us Breezy Audie DO [facility] US PROCEDURES Final Result * TBH PROLACTIN (03/12/2025 10:51 AM EDT) PROLACTIN 8.4 4.8 - 33.4 ng/mL TBH Comment: Performed at: [address] [id number] Photo Lab Manager: Nj Ferro PhD, Phone: [phone] 03/12/2025 10:5 1 AM EDT 03/12/2025 10:59 AM EDT Narrative CLINISYNC - 03/13/2025 12:09 PM EDT Breezy Audie DO CLINIS[facility]NC Final Result [facility] * [facility] PREG QUANT HCG (03/12/2025 10:51 AM EDT) HCG QUANTITATIVE <1 mIU/mL TB Comment: 5-50 0.2-1 WEEK 50-500 1-2 WEEKS 100-5,000 2-3 WEEKS 500-10,000 3-4 WEEKS 1,000-50,000 4-5 WEEKS 10,000-100,000 5-6 WEEKS 15,000-200,000 6-8 WEEKS 10,000-100,000 2-3 MONTHS 03/12/2025 10:5 1 AM EDT 03/12/2025 10:59 AM EDT Narrative CLINISYNC - 03/12/2025 11:39 AM EDT Tomorrowo DO CLINISYNC Final Result Performing Organization Address [facility]/ZIP Co de Phone Number [facility] * MLR HEMOGLOBIN A1C (03/12/2025 10:51 AM EDT) GLYCOHEMOGLOBIN A1C 5.2 4.5 - 6.2 % [facility] Comment: ADA RECOMMENDED LIMIT 4.0 - 6.0 ADA THERAPEUTIC TARGET < 7.0 ACTION SUGGESTED > 7.0 ESTIMATED AVERAGE GLUCOSE 103 mg/dL TB 03/12/2025 10:5 1 AM EDT 03/12/2025 10:59 AM EDT Narrative CLINISYNC - 03/12/2025 11:35 AM EDT Breezy Audie DO CLINISYNC Final Result [facility] * ALL THYROXINE (T4) FREE (03/12/2025 10:51 AM EDT) FREE T4 0.88 0.76 - 1.46 ng/dL TBH 03/12/2025 10:5 1 AM EDT 03/12/2025 10:59 AM EDT Narrative CLINISYNC - 03/12/2025 12:17 PM EDT [facility] Final Result Performing Organization Address [facility] Phone Number [facility] * ALL THYROID STIM HORMONE (03/12/2025 10:51 AM EDT) THYROID STIMULATING HORMONE 0.787 0.358 - 3.740 uIU/mL TBH 03/12/2025 10:5 1 AM EDT 03/12/2025 10:59 AM EDT Narrative CLINISYNC - 03/12/2025 11:39 AM EDT [facility] Final Result Performing Organization Address [facility] Phone Number [facility] * ALL LUTEINIZING HORMONE (03/12/2025 10:51 AM EDT) LUTEINIZING HORMONE(LH) 6.0 . mIU/mL TBH Comment: Adult Female Range Follicular phase 2.4 - 12.6 Ovulation phase 14.0 - 95.6 Luteal phase 1.0 - 11.4 Postmenopausal 7.7 - 58.5 03/12/2025 10:5 1 AM EDT 03/12/2025 10:59 AM EDT Narrative CLINISYNC - 03/13/2025 12:09 PM EDT [facility] DO [facility] Final Result Performing Organization Address [facility] Phone Number [facility] * ALL FOLLICLE STIMULATING HORMONE (03/12/2025 10:51 AM EDT) FSH 2.5 . mIU/mL TBH Comment: Adult Female Range Follicular phase 3.5 - 12.5 Ovulation phase 4.7 - 21.5 Luteal phase 1.7 - 7.7 Postmenopausal 25.8 - 134.8 03/12/2025 10:5 1 AM EDT 03/12/2025 10:59 AM EDT Narrative CLINISYNC - 03/13/2025 12:09 PM EDT Breezy Audie DO CLINISYNC Final Result [facility] * ALL DHEA SULFATE (03/12/2025 10:51 AM EDT) DHEA-SULFATE 172.0 84.8 - 378.0 ug/dL TB 03/12/2025 10:5 1 AM EDT 03/12/2025 10:59 AM EDT Narrative CLINISYNC - 03/13/2025 12:09 PM EDT Breezy Audie DO CLINISYNC Final Result Performing Organization Address [facility]/ZIP Co de Phone Number [facility] * ALL DEHYDROEPIANDROSTERONE (03/12/2025 10:51 AM EDT) DHEA, SERUM 319 31 - 701 ng/dL TB Comment: This test was developed and its performance characteristics determined by [facility]. It has not been cleared or approved by the Food and Drug Administration. Performed at: [address] [id number] Photo Lab Manager: Jim Cruz MD, Phone: [phone] 03/12/2025 10:5 1 AM EDT 03/12/2025 10:59 AM EDT Narrative CLINISYNC - 03/20/2025 1:08 PM EDT Breezy Audie DO CLINISYNC Final Result Performing Organization Address City/[facility]/ZIP Co de Phone Number [facility] * (ABNORMAL) ALL CBC WITH AUTO DIFF (03/12/2025 10:51 AM EDT) [facility] TB WBC 10.6 4.0 - 11.0 10 3/uL TBH TBH RBC 4.90 4.20 - 5.40 10 6/uL TBH TBH HGB 14.6 12.0 - 16.0 g/dL TBH TBH HCT 42.1 36.0 - 48.0 % TBH TBH MCV 85.9 81.0 - 99.0 fL TBH TBH MCH 29.8 26.7 - 34.0 pg TBH TBH MCHC 34.7 29.9 - 35.2 g/dL TBH TBH RDW 12.6 11.0 - 15.0 % TBH TBH PLT 287 150 - 450 10 3/uL TBH TBH MPV 10.0 9.5 - 13.5 fL TBH NEUTROPHILS PERCENT AUTO 75.3(H) 43.0 - 75.0 % TBH LYMPHOCYTES PERCENT AUTO 17.8(L) 20.5 - 60.0 % TBH MONOCYTES PERCENT AUTO 5.5 1.7 - 12.0 % TBH TBH EO % 0.8(L) 0.9 - 7.0 % TBH BASOPHILS PERCENT AUTO 0.2 0.2 - 2.0 % TBH IMMATURE GRANULOCYTES PCT AUTO 0.4 0.0 - 0.5 % TBH NEUTROPHILS ABSOLUTE AUTO 8.0(H) 1.4 - 6.5 10 3/uL TBH LYMPHOCYTES ABSOLUTE AUTO 1.9 1.2 - 3.8 10 3/uL TBH MONOCYTES ABSOLUTE AUTO 0.6 0.3 - 0.8 10 3/uL TBH TBH EO # 0.1 0.0 - 0.7 10 3/uL TBH BASOPHILS ABSOLUTE AUTO 0.0 0.0 - 0.1 10 3/uL TBH IMMATURE GRANULOCYTES ABS AUTO 0.04(H) 0.00 - 0.03 10 3/uL TBH 03/12/2025 10:5 1 AM EDT 03/12/2025 10:59 AM EDT Narrative CLINISYNC - 03/12/2025 11:15 AM EDT Breezy Bronson DO CLINISYNC Final Result [facility] * ALL ANTI-MULLERIAN HORMONE (03/12/2025 10:51 AM EDT) ANTI-MULLERIAN HORMONE (AMH) 5.17 . ng/mL [facility] Comment: For assays employing antibodies, the possibility exists for interference by heterophile antibodies in the samples.1 1.Eliel Lopes Interferences in Immunoassays - still a threat. Clin. Chem. 2000; 46: 1844-0371. This test was developed and its performance characteristics determined by [facility]. It has not been cleared or approved by the Food and Drug Administration. Reference Range: Females 26 - 30y: 1.03 - 11.10 Median 4.20 AMH concentrations of >= 1.06 ng/mL is correlated with a better response to ovarian stimulation, produced more retrievable oocytes and higher odds of live according to Yael et al. Fertility and Sterility. 2010: 94:0304-2403. The current AMH test method correlates with the study method with a slope of 0.94. Females at risk of ovarian hyperstimulation syndrome or polycystic ovarian syndrome (PCOS) may exhibit elevated serum AMH concentrations. AMH levels from PCOS patients may be 2 to 5 fold higher than age-appropriate reference interval values. Granulosa cell tumors of the ovary may secrete AMH along with other tumor markers. Elevated AMH is not specific for malignancy, and the assay should not be used exclusively to diagnose or exclude an AMH-secreting ovarian tumor. Performed at: [facility] [address] [place] [id number] Photo Lab Manager: Elizabeth GONZALEZ, Phone: [phone] 03/12/2025 10:5 1 AM EDT 03/12/2025 10:59 AM EDT Narrative CLINISYNC - 03/15/2025 7:09 PM EDT Breezy Frasero DO CLINISYNC Final Result [facility] * POCT , urine manually resulted (03/12/2025 9:38 AM EDT) Preg Test, Ur Negative Negative Urine 03/12/2025 9:38 AM EDT Breezy Bronson DO POINT OF CARE TEST ENTER/EDIT OR DERABLES Final Result from Last 3 Months Insurance [facility] Care Teams School Social Worker Relationship Specialty Start Date End Date Nikita Kingston MD [address] [place] [address] PCP - General Family Medicine 06/09/23
--- OUTSIDE RECORDS SUMMARY | 2025-03-25 12:24 | XMS_ITS | Encounter Summary ---
Author Organization [facility] Address [address] [place] [address] Care Team Providers Care Brake Operator Sheet Metal Name Role Phone Nikita Kingston MD Primary Care Provider [phone] Encounter Details Date Type Department Care Team (Late st Contact Info) Description 03/12/2025 Clinisync Result Encounter [facility]S External Department Unsolicited Breezy Bronson DO [address] [place] [address] Social History Tobacco Use Types Packs/Day Years [...] 9:20 AM EST Procedure Visit [facility] OBG[facility] [address] [place] [phone] Breezy Bronson DO [address] [place] [address] documented as of this encounter Procedures Procedure Name Priority Date/Time Associated Diagnosis Comments TBH PROLACTIN Routine 03/12/2025 10:51 AM EDT TBH PREG QUANT HCG Routine 03/12/2025 10:51 AM EDT MLR HEMOGLOBIN A1C Routine 03/12/2025 10:51 AM EDT ALL THYROXINE (T4) FREE Routine 03/12/20 25 10:51 AM EDT ALL THYROID STIM HORMONE Routine 025 10:51 AM EDT ALL LUTEINIZING HORMONE Routine 03/12/20 25 10:51 AM EDT ALL FOLLICLE STIMULATING HORMONE Routine 03/12/2025 10:51 AM EDT ALL DHEA SULFATE Routine 03/12/2025 10:51 AM EDT ALL DEHYDROEPIANDROSTERONE Routine 03/12 10:51 AM EDT ALL CBC WITH AUTO DIFF Routine 10:51 AM EDT ALL ANTI-MULLERIAN HORMONE Routine 03/12 10:51 AM EDT documented in this encounter Results * ALL DEHYDROEPIANDROSTERONE (03/12/2025 10:51 AM EDT) DHEA, SERUM 319 31 - 701 ng/dL TB Comment: This test was developed and its performance characteristics determined by [facility]. It has not been cleared or approved by the Food and Drug Administration. Performed at: [address] [id number] Ophthalmologist: Jim Cruz MD, Phone: [phone] 03/12/2025 10:5 1 AM EDT 03/12/2025 10:59 AM EDT Narrative CLINISYNC - 03/20/2025 1:08 PM EDT Breezy Audie DO CLINISYNC Final Result Performing Organization Address City/[facility]/ZIP Co de Phone Number [facility] * ALL ANTI-MULLERIAN HORMONE (03/12/2025 10:51 AM EDT) ANTI-MULLERIAN HORMONE (AMH) 5.17 . ng/mL TB Comment: For assays employing antibodies, the possibility exists for interference by heterophile antibodies in the samples.1 1.Eliel Lopes Interferences in Immunoassays - still a threat. Clin. Chem. 2000; 46: 9264-1349. This test was developed and its performance characteristics determined by [employer] It has not been cleared or approved by the Food and Drug Administration. Reference Range: Females 26 - 30y: 1.03 - 11.10 Median 4.20 AMH concentrations of >= 1.06 ng/mL is correlated with a better response to ovarian stimulation, produced more retrievable oocytes and higher odds of live according to Ronalder et al. Fertility and Sterility. 2010: 94:8421-5399. The current AMH test method correlates with [...] exclude an AMH-secreting ovarian tumor. Performed at: [facility] [address] [place] [id number] Ophthalmologist: Elizabeth GONZALEZ, Phone: [phone] 03/12/2025 10:5 1 AM EDT 03/12/2025 10:59 AM EDT Narrative CLINISYNC - 03/15/2025 7:09 PM EDT Breezy Audie DO CLINISYNC Final Result [facility] * TBH PROLACTIN (03/12/2025 10:51 AM EDT) PROLACTIN 8.4 4.8 - 33.4 ng/mL TBH Comment: Performed at: [facility] [id number] Ophthalmologist: Nj Ferro PhD, Phone: [phone] 03/12/2025 10:5 1 AM EDT 03/12/2025 10:59 AM EDT Narrative CLINISYNC - 03/13/2025 12:09 PM EDT us Breezy Audie DO CLINISYNC Final Result Performing Organization Address City/[facility]/ZIP Co de Phone Number [facility] * ALL FOLLICLE STIMULATING HORMONE (03/12/2025 10:51 AM EDT) FSH 2.5 . mIU/mL TBH Comment: Adult Female Range Follicular phase 3.5 - 12.5 Ovulation phase 4.7 - 21.5 Luteal phase 1.7 - 7.7 Postmenopausal 25.8 - 134.8 03/12/2025 10:5 1 AM EDT 03/12/2025 10:59 AM EDT Narrative CLINISYNC - 03/13/2025 12:09 PM EDT Breezy Audie DO CLINISYNC Final Result Performing Organization Address [facility] Co de Phone Number [facility] * ALL LUTEINIZING HORMONE (03/12/2025 10:51 AM EDT) LUTEINIZING HORMONE(LH) 6.0 . mIU/mL TBH Comment: Adult Female Range Follicular phase 2.4 - 12.6 Ovulation phase 14.0 - 95.6 Luteal phase 1.0 - 11.4 Postmenopausal 7.7 - 58.5 03/12/2025 10:5 1 AM EDT 03/12/2025 10:59 AM EDT Narrative CLINISYNC - 03/13/2025 12:09 PM EDT us Breezy Audie DO CLINISYNC Final Result [facility] * ALL DHEA SULFATE (03/12/2025 10:51 AM EDT) DHEA-SULFATE 172.0 84.8 - 378.0 ug/dL TBH 03/12/2025 10:5 1 AM EDT 03/12/2025 10:59 AM EDT Narrative CLINISYNC - 03/13/2025 12:09 PM EDT Breezy Audie DO CLINISYNC Final Result [facility] * ALL THYROXINE (T4) FREE (03/12/2025 10:51 AM EDT) FREE T4 0.88 0.76 - 1.46 ng/dL TBH 03/12/2025 10:5 1 AM EDT 03/12/2025 10:59 AM EDT Narrative CLINISYNC - 03/12/2025 12:17 PM EDT Breezy Audie DO CLINISYLA Final Result Performing Organization Address City/[facility] Co de Phone Number [facility] * TBH PREG QUANT HCG (03/12/2025 10:51 AM EDT) HCG QUANTITATIVE <1 mIU/mL TBH Comment: 5-50 0.2-1 WEEK 50-500 1-2 WEEKS 100-5,000 2-3 WEEKS 500-10,000 3-4 WEEKS 1,000-50,000 4-5 WEEKS 10,000-100,000 5-6 WEEKS 15,000-200,000 6-8 WEEKS 10,000-100,000 2-3 MONTHS 03/12/2025 10:5 1 AM EDT 03/12/2025 10:59 AM EDT Narrative CLINISYNC - 03/12/2025 11:39 AM EDT Breezy Uadie DO CLINISYNC Final Result [facility] * ALL THYROID STIM HORMONE (03/12/2025 10:51 AM EDT) Pathologist [facility] THYROID STIMULATING HORMONE 0.787 0.358 - 3.740 uIU/mL TB 03/12/2025 10:5 1 AM EDT 03/12/2025 10:59 AM EDT Narrative CLINISYNC - 03/12/2025 11:39 AM EDT Breezy Audie DO CLINISYNC Final Result [facility] * MLR HEMOGLOBIN A1C (03/12/2025 10:51 AM EDT) Pathologist [facility] GLYCOHEMOGLOBIN A1C 5.2 4.5 - 6.2 % TB Comment: ADA RECOMMENDED LIMIT 4.0 - 6.0 ADA THERAPEUTIC TARGET < 7.0 ACTION SUGGESTED > 7.0 ESTIMATED AVERAGE GLUCOSE 103 mg/dL TB 03/12/2025 10:5 1 AM EDT 03/12/2025 10:59 AM EDT Narrative CLINISYNC - 03/12/2025 11:35 AM EDT [facility] Final Result Performing Organization Address City/[facility]/ZIP Co de Phone Number [facility] * (ABNORMAL) ALL CBC WITH AUTO DIFF (03/12/2025 10:51 AM EDT) Pathologist [facility] TBH WBC 10.6 4.0 - 11.0 10 3/uL [...] EDT Breezy Bronson DO CLINISYNC Final Result [facility] documented in this encounter Visit Diagnoses Not on filedocumented in this encounter Care Teams Brake Operator Sheet Metal Relationship Specialty Start Date End Date Nikita Kingston MD [address] [place] [address] PCP - General Family Medicine 06/09/23 documented as of this encounter
--- OUTSIDE RECORDS SUMMARY | 2025-03-25 12:24 | XMS_ITS | Encounter Summary ---
Author Organization [facility] Address [address] [place] [address] Care Team Providers Care Professor Of Environmental Engineering Name Role Phone Nikita Kingston MD Primary Care Provider [phone] Encounter Details Date Type Department Care Team [...] EST Procedure Visit [facility] [address] [place] [phone] Breezy Bronson DO [address] [facility] [address] [place] [id number] documented as of this encounter Visit Diagnoses Not on filedocumented in this encounter Care Teams Professor Of Environmental Engineering Relationship Specialty Start Date End Date Nikita Kingston MD [address] [facility] [place] [address] PCP - General Family Medicine 06/09/23 documented as of this encounter
--- OUTSIDE RECORDS SUMMARY | 2025-03-25 12:24 | XMS_ITS | Encounter Summary ---
Author Organization [facility] Address [address] [place] [address] Care Team Providers Care Fish Roe Technician Name Role Phone Nikita Kingston MD Primary Care Provider [phone] Reason for Visit * Reason Comments Med Change Request Encounter Details Date Type Department Care Team (Late Contact Info) Description 03/12/2025 Refill [facility] [address] [place] [place] [address] [place] [address] Breezy Bronson, DO [address] [place], [place] [address] Irregular menses Social History Tobacco Use Types Packs/Day Years [...] Encounters Date Type Department Care Team (Late Contact Info) Description 07/15/2025 9:20 AM EST Procedure Visit [facility] [address] [place], [place] [address] [phone] Breezy Bronson, DO [address] [place], [place] [id number] documented as of this encounter Visit Diagnoses Diagnosis Irregular menses Irregular menstrual cycle documented in this encounter Care Teams Fish Roe Technician Relationship Specialty Start Date End Date Nikita Kingston MD [address] [place] [address] PCP - General Family Medicine 06/09/23 documented as of this encounter
--- OUTSIDE RECORDS SUMMARY | 2025-03-25 12:24 | XMS_ITS | Encounter Summary ---
Author Organization [facility] Address [address] [place] [place] [address] Care Team Providers Care Core Inserter Name Role Phone Nikita Kingston MD Primary Care Provider Encounter Details Date Type Department Care Team (Late Contact Info) Description 03/12/2025 Bamboo flowsheet [facility] [address] [place] [address] Breezy Bronson DO [facility] [address], [place] [address] Social History Tobacco Use Types Packs/Day Years [...] AM EST Procedure Visit [facility] [address] [place] [address] Breezy Bronson DO [address], [facility] documented as of this encounter Visit Diagnoses Not on filedocumented in this encounter Care Teams Core Inserter Relationship Specialty Start Date End Date Nikita Kingston MD [address] [place] [id number] PCP - General Family Medicine 06/09/23 documented as of this encounter
--- OUTSIDE RECORDS SUMMARY | 2025-03-25 12:24 | XMS_ITS | Encounter Summary ---
Author Organization [facility] Address [address] [place] [address] Care Team Providers Care Director Of Outpatient Services Name Role Phone Nikita Kingston MD Primary Care Provider [phone] Encounter Details Date Type Department Care Team (Late st Contact Info) Description 06/07/2024 Orders Only [facility] [place] [address] Marilou Ochoa LPN [address] [facility] Jaime [place] [address] Social History Tobacco Use Types Packs/Day Years [...] EST Procedure Visit [facility] [address] [facility] [place] [address] Breezy Bronson DO [address] Stefan Vasquez [facility]11 documented as of this encounter Procedures Procedure Name Priority Date/Time Associated Diagnosis Comments PAP SMEAR Routine 06/09/2023 12:00 AM EST documented in this encounter Results * Pap Smear (06/09/2023 12:00 AM EST) Swab Cervical swab / Unknown us Audie Nurse [facility] Ob LAB CYTOLOGY ORDERABLES Final Result EXTERNAL LAB documented in this encounter Visit Diagnoses Not on filedocumented in this encounter Care Teams Director Of Outpatient Services Relationship Specialty Start Date End Date Nikita Kingston MD [address] [place] [address] PCP - General Family Medicine 06/09/23 documented as of this encounter
--- OUTSIDE RECORDS SUMMARY | 2025-03-25 12:24 | XMS_ITS | Encounter Summary ---
Author Organization [facility] Address [address] [place] [address] Care Team Providers Care Traveling Construction Superintendent Name Role Phone Nikita Kingston MD Primary Care Provider [phone] Encounter Details Date Type Department Care Team (Latest Contact Info) Description 03/19/2025 Travel Social History Tobacco Use Types Packs/Day [...] EST Procedure Visit [facility] [address] [place] [phone] Breezy Bronson DO [address] [facility] [address] [place] [id number] documented as of this encounter Visit Diagnoses Not on filedocumented in this encounter Care Teams Traveling Construction Superintendent Relationship Specialty Start Date End Date Nikita Kingston MD [address] [place] [address] PCP - General Family Medicine 06/09/23 documented as of this encounter
--- OUTSIDE RECORDS SUMMARY | 2025-03-25 12:24 | XMS_ITS | Encounter Summary ---
Author Organization [facility] Address [address] [place] [address] Care Team Providers Care Cannon Fire Direction Specialist Name Role Phone Nikita Kingston MD Primary Care Provider Encounter Details Date Type Department Care Team (Late st Contact Info) Description 06/22/2024 Orders Only [facility] [address] Marilou Ochoa LPN [address] [place] Ja[place] [address] Social History Tobacco Use Types Packs/Day Years [...] EST Procedure Visit [facility] [address] [facility] [place] [address] Breezy Bronson DO [address] Stefan Vasquez [facility]11 documented as of this encounter Procedures Procedure Name Priority Date/Time Associated Diagnosis Comments PAP SMEAR Routine 06/12/2024 12:00 AM EST documented in this encounter Results * Pap Smear (06/12/2024 12:00 AM EST) Swab Cervical swab / Unknown us Audie Nurse [facility] Ob LAB CYTOLOGY ORDERABLES Final Result EXTERNAL LAB documented in this encounter Visit Diagnoses Not on filedocumented in this encounter Care Teams Cannon Fire Direction Specialist Relationship Specialty Start Date End Date Nikita Kingston MD [address] [place] [address] PCP - General Family Medicine 06/09/23 documented as of this encounter
--- OUTSIDE RECORDS SUMMARY | 2025-03-27 10:42 | XMS_ITS | Encounter Summary ---
Author Organization [facility] Address [address] [place] [address] Care Team Providers Care Subway Conductor Name Role Phone Nikita Kingston MD Primary [...] EST Procedure Visit [facility] [address] [place] [phone] Breezy Bronson DO [address] [facility] [address] [place] [id number] documented as of this encounter Visit Diagnoses Not on filedocumented in this encounter Care Teams Subway Conductor Relationship Specialty Start Date End Date Nikita Kingston MD [address] [place] [address] PCP - General Family Medicine 06/09/23 documented as of this encounter
--- OUTSIDE RECORDS SUMMARY | 2025-03-27 10:42 | XMS_ITS | Encounter Summary ---
Author Organization [facility] Address [address] [place] [address] Care Team Providers Care Security Intelligence Analyst Name Role Phone Nikita Kingston MD Primary Care Provider [phone] Encounter Details Date Type Department Care Team (Late st Contact Info) Description 03/25/2025 Telephone [facility] O[facility]YR[facility]card[facility] [address] [place] [address] [place] [address] Kassandra Charlton LPN Social History [...] aware lab order will be sent to [facility] to have drawn & nursing will reach out to patient once reviewed. Patient will call office once labs are drawn to then discuss plan of care. --ss 1259pm Patient called and LMOM that she had her labs drawn. 03/26/25 0840 Called patient and informed her of results. Advised patient to have labs drawn again tomorrow and to call office and nursing would obtain results. If results double then patient will beable to setup Viability US and OB Intake. Patient would like to know when she is able to find out how far along she is. Spoke with Dr. Bronson and if levels are over 1,000 then patient is able to have US scheduled in 2 weeks for viability. Patient needs to be informed that at that scan there may onlybe a sac shown and most likely need a follow up viability. Kassandra Andrade LPN 1045 spoke with patient as she left a message that she received a call to setup OB intake and US. Patient was transferred to Clerical to setup, but informed them that she would reach out to Nurse. Gave patient above message in regards to when US could be scheduled. PVU documented in this encounter Plan of Treatment Upcoming Encounters Date Type Department Care Team (Late st Contact Info) Description 07/15/2025 9:20 AM EST Procedure Visit [facility] OBGYN [address] [place] [phone] Breezy Bronson DO [address] [place] [address] Scheduled Orders Name Type Priority Associated Diagnoses Orde r Schedule hCG, quantitative, Lab Routine Missed menses Irregular menses PCOS (polycystic ovarian syndrome) Expected: 03/25/2025 (Approximate), Expires: 03/25/2026 documented as of this encounter Visit Diagnoses Diagnosis Missed menses Irregular menses Irregular menstrual cycle PCOS (polycystic ovarian syndrome) Polycystic ovaries documented in this encounter Care Teams Security Intelligence Analyst Relationship Specialty Start Date End Date Nikita Kingston MD [address] [place] [address] PCP - General Family Medicine 06/09/23 documented as of this encounter
--- OUTSIDE RECORDS SUMMARY | 2025-03-27 10:42 | XMS_ITS | Encounter Summary ---
Author Organization [facility] Address [address] [place] [address] Care Team Providers Care Emergency Medicine Nurse Practitioner Name Role Phone Nikita Kingston MD Primary Care Provider [phone] Encounter Details Date Type Department Care Team [...] EST Procedure Visit [facility] [address] [place] [phone] Breezy Bronson DO [address] [facility] [address] [place] [id number] documented as of this encounter Visit Diagnoses Not on filedocumented in this encounter Care Teams Emergency Medicine Nurse Practitioner Relationship Specialty Start Date End Date Nikita Kingston MD [address] [facility] [place] [address] PCP - General Family Medicine 06/09/23 documented as of this encounter
--- OUTSIDE RECORDS SUMMARY | 2025-03-27 10:42 | XMS_ITS | Encounter Summary ---
Author Organization [facility] Address [address] [place] [address] Care Team Providers Care Overlock Operator Name Role Phone Nikita Kingston MD Primary Care Provider [phone] Reason for Visit * Reason Comments Med Change Request Encounter Details Date Type Department Care Team (Late Contact Info) Description 03/12/2025 Refill [facility] [address] [place] [address] [place] [address] Breezy Bronson, DO [address], [place] [address] Irregular menses Social History Tobacco Use Types [...] 9:20 AM EST Procedure Visit [facility] [address] [place], [place] [address] [address] Breezy Bronson, DO [address] [place], [place] [id number] documented as of this encounter Visit Diagnoses Diagnosis Irregular menses Irregular menstrual cycle documented in this encounter Care Teams Overlock Operator Relationship Specialty Start Date End Date Nikita Kingston MD [address] [place] [address] PCP - General Family Medicine 06/09/23 documented as of this encounter
--- OUTSIDE RECORDS SUMMARY | 2025-03-27 10:42 | XMS_ITS | Encounter Summary ---
Author Organization [facility] Address [address] [place] [address] Care Team Providers Care Condominium Association Manager Name Role Phone Nikita Kingston MD Primary Care Provider [phone] Encounter Details Date Type Department Care Team (Late st Contact Info) Description 06/22/2024 Orders Only [facility] [place] [address] Marilou Ochoa LPN [address] [place] [address] Social History Tobacco Use Types Packs/Day Years [...] EST Procedure Visit [facility] [address] [facility] [place] [address] Breezy Bronson DO [address] Stefan Vasquez [facility]11 documented as of this encounter Procedures Procedure Name Priority Date/Time Associated Diagnosis Comments PAP SMEAR Routine 06/12/2024 12:00 AM EST documented in this encounter Results * Pap Smear (06/12/2024 12:00 AM EST) Swab Cervical swab / Unknown us Audei Nurse [facility] Ob LAB CYTOLOGY ORDERABLES Final Result EXTERNAL LAB documented in this encounter Visit Diagnoses Not on filedocumented in this encounter Care Teams Condominium Association Manager Relationship Specialty Start Date End Date Nikita Kingston MD [address] [place] [address] PCP - General Family Medicine 06/09/23 documented as of this encounter
--- OUTSIDE RECORDS SUMMARY | 2025-03-27 10:42 | XMS_ITS | Clinical Summary ---
Author Organization [facility] Healthcare Address [address] [place] [address] Care Team Providers Care Industrial Education Teacher Name Role Phone Nikita Kingston MD Primary Care Provider [phone] Allergies No known active allergies Medications lisdexamfetamine [...] Date Type Department Care Team Description 03/25/2025 Clinisync Result Encounter [facility] External Department Unsolicited Breezy Bronson, DO 03/25/2025 Telephone [facility] [address] [facility] [place] [address] Kassandra Charlton LPN 03/19/2025 11:00 AM EDT Ancillary Procedure [facility] LEALGYN [address] [place] [address] Missed menses; Irregular menses; PCOS (polycystic ovarian syndrome) 03/19/2025 Travel 03/13/2025 Travel 03/12/2025 9:10 AM EDT Office Visit [facility] [address] [place] [address] Breezy Bronson, Missed menses; Irregular menses; PCOS (polycystic ovarian syndrome) 03/12/2025 Clinisync Result Encounter NOMS External Department Unsolicited Breezy Bronson, DO 03/12/2025 Refill [facility] [address] [place] [address] Breezy Bronson, DO Irregular menses 03/12/2025 Bamboo flowsheet [facility] [address] [place] [address] Breezy Brnoson, 03/11/2025 Travel 02/20/2025 Telephone [facility] [address] [place] [address] Francine Carlos MA from Last 3 [...] EST Procedure Visit [facility] [address] [facility] [address] Breezy Bronson, [address] [facility] [place] [address] Health Maintenance Due Date Last Done Comments Influenza Vaccine (#1) 2025 , 08/14/2021, 07/01/2019, Additional history exists Procedures Procedure Name Priority Date/Time Associated Diagnosis Comments TBH PREG QUANT HCG Routine 03/25/2025 12:31 PM EDT US PELVIC COMPLETE W/ TV Routine 025 11:13 AM EDT Missed menses Irregular menses PCOS (polycystic ovarian syndrome) ALL DEHYDROEPIANDROSTERONE Routine 03/12 10:51 AM EDT ALL ANTI-MULLERIAN HORMONE Routine 03/12 10:51 AM EDT TBH PROLACTIN Routine 03/12/2025 10:51 AM EDT ALL FOLLICLE STIMULATING HORMONE Routine 03/12/2025 10:51 AM EDT ALL LUTEINIZING HORMONE Routine 03/12/20 10:51 AM EDT ALL DHEA SULFATE Routine 03/12/2025 10:51 AM EDT ALL THYROXINE (T4) FREE Routine 03/12/20 10:51 AM EDT TBH PREG QUANT HCG Routine 03/12/2025 10:51 AM EDT ALL THYROID STIM HORMONE Routine 025 10:51 AM EDT MLR HEMOGLOBIN A1C Routine 03/12/2025 10:51 AM EDT ALL CBC WITH AUTO DIFF Routine 10:51 AM EDT POCT , URINE Routine 03/12/2025 9:38 AM EDT Missed menses from Last 3 Months Results * TBH PREG QUANT HCG (03/25/2025 12:31 PM EDT) Only the most recent of2 resultswithin the time period is included. HCG QUANTITATIVE 545 mIU/mL TB Comment: 5-50 0.2-1 WEEK 50-500 1-2 WEEKS 100-5,000 2-3 WEEKS 500-10,000 3-4 WEEKS 1,000-50,000 4-5 WEEKS 10,000-100,000 5-6 WEEKS 15,000-200,000 6-8 WEEKS 10,000-100,000 2-3 MONTHS 03/25/2025 12:3 1 PM EDT 03/25/2025 12:32 PM EDT Narrative CLINISYNC - 03/25/2025 2:06 PM EDT us Breezy Audie DO [facility]IS[facility] Final [facility] * US Pelvis w/ TV (03/19/2025 11:13 [...] II, MD, PHD at 21-Mar-2025 08:05:10 AM [facility] Procedure Note Tali Parrish MD - [...] TALI PARRISH II, MD, PHD 08:05:10 AM [facility] us Breezy Audie DO IM US PROCEDURES Final Result * TBH PROLACTIN (03/12/2025 10:51 AM EDT) PROLACTIN 8.4 4.8 - 33.4 ng/mL TB Comment: Performed at: [address] [id number] Associate Property Manager: Nj Ferro PhD, Phone: [phone] 03/12/2025 10:5 1 AM EDT 03/12/2025 10:59 AM EDT Narrative CLINISYNC - 03/13/2025 12:09 PM EDT us Breezy Audie DO CLINISYNC Final Result [facility] * MLR HEMOGLOBIN A1C (03/12/2025 10:51 AM EDT) GLYCOHEMOGLOBIN A1C 5.2 4.5 - 6.2 % TB Comment: ADA RECOMMENDED LIMIT 4.0 - 6.0 ADA THERAPEUTIC TARGET < 7.0 ACTION SUGGESTED > 7.0 ESTIMATED AVERAGE GLUCOSE 103 mg/dL TB 03/12/2025 10:5 1 AM EDT 03/12/2025 10:59 AM EDT Narrative CLINISYNC - 03/12/2025 11:35 AM EDT Breezy Frasero DO CLINISYNC Final Result Performing Organization Address [facility] Co de Phone Number [facility] * ALL THYROXINE (T4) FREE (03/12/2025 10:51 AM EDT) FREE T4 0.88 0.76 - 1.46 ng/dL TBH 03/12/2025 10:5 1 AM EDT 03/12/2025 10:59 AM EDT Narrative CLINISYNC - 03/12/2025 12:17 PM EDT Breezy Frasero DO CLINISYNC Final Result Performing Organization Address [facility] Co de Phone Number [facility] * ALL THYROID STIM HORMONE (03/12/2025 10:51 AM EDT) THYROID STIMULATING HORMONE 0.787 0.358 - 3.740 uIU/mL TBH 03/12/2025 10:5 1 AM EDT 03/12/2025 10:59 AM EDT Narrative CLINISYNC - 03/12/2025 11:39 AM EDT Breezy Frasero DO TURNERISYNC Final Result Performing Organization Address [facility] Co de Phone Number [facility] * ALL LUTEINIZING HORMONE (03/12/2025 10:51 AM EDT) LUTEINIZING HORMONE(LH) 6.0 . mIU/mL TBH Comment: Adult Female Range Follicular phase 2.4 - 12.6 Ovulation phase 14.0 - 95.6 Luteal phase 1.0 - 11.4 Postmenopausal 7.7 - 58.5 03/12/2025 10:5 1 AM EDT 03/12/2025 10:59 AM EDT Narrative CLINISYNC - 03/13/2025 12:09 PM EDT Breezy Audie DO CLINISYNC Final Result Performing Organization Address [facility] Co de Phone Number [facility] * ALL FOLLICLE STIMULATING HORMONE (03/12/2025 10:51 AM EDT) FSH 2.5 . mIU/mL TBH Comment: Adult Female Range Follicular phase 3.5 - 12.5 Ovulation phase 4.7 - 21.5 Luteal phase 1.7 - 7.7 Postmenopausal 25.8 - 134.8 03/12/2025 10:5 1 AM EDT 03/12/2025 10:59 AM EDT Narrative CLINISYNC - 03/13/2025 12:09 PM EDT [facility] DO CLINISYNC Final Result Performing Organization Address [facility] Phone Number [facility] * ALL DHEA SULFATE (03/12/2025 10:51 AM EDT) DHEA-SULFATE 172.0 84.8 - 378.0 ug/dL TB 03/12/2025 10:5 1 AM EDT 03/12/2025 10:59 AM EDT Narrative CLINISYNC - 03/13/2025 12:[address] [facility] Final Result Performing Organization Address [facility] Phone Number [facility] * ALL DEHYDROEPIANDROSTERONE (03/12/2025 10:51 AM EDT) DHEA, SERUM 319 31 - 701 ng/dL TBH Comment: This test was developed and its performance characteristics determined by [facility]. It has not been cleared or approved by the Food and Drug Administration. Performed at: [address] [id number] Associate Property Manager: Jim Cruz MD, Phone: [phone] 03/12/2025 10:5 1 AM EDT 03/12/2025 10:59 AM EDT Narrative CLINISYNC - 03/20/2025 1:08 PM EDT us Breezy Edwardszio DO RAMONE Final Result RAMONE [facility] * (ABNORMAL) ALL CBC WITH AUTO DIFF (03/12/2025 10:51 AM EDT) [facility] TB WBC 10.6 4.0 - 11.0 10 [...] Narrative CLINISYNC - 03/12/2025 11:15 AM EDT [facility] [place] CLINISYMT Final Result RAMONE [facility] * ALL ANTI-MULLERIAN HORMONE (03/12/2025 10:51 AM EDT) ANTI-MULLERIAN HORMONE (AMH) 5.17 . ng/mL [facility] Comment: For assays employing antibodies, the possibility exists for interference by heterophile antibodies in the samples.1 1.Eliel Hurtado. Interferences in Immunoassays - still a threat. Clin. Chem. 2000; 46: 5000-5972. This test was developed and its performance characteristics determined by [employer]. It has not been cleared or approved by the Food and Drug Administration. Reference Range: Females 26 - 30y: 1.03 - 11.10 Median 4.20 AMH concentrations of >= 1.06 ng/mL is correlated with a better response to ovarian stimulation, produced more retrievable oocytes and higher odds of live according to Gleicher et al. Fertility and Sterility. 2010: 94:1712-7117. The current AMH test method correlates with [...] exclude an AMH-secreting ovarian tumor. Performed at: [facility] [address] [place] [id number] Associate Property Manager: Elizabeth GONZALEZ, Phone: [phone] 03/12/2025 10:5 1 AM EDT 03/12/2025 10:59 AM EDT Narrative CLINISYNC - 03/15/2025 7:09 PM EDT Breezy Frasero DO CLINISYNC Final Result CLINISYNC [facility] * POCT , urine manually resulted (03/12/2025 9:38 AM EDT) Preg Test, Ur Negative Negative Urine 03/12/2025 9:38 AM EDT us Breezy Audie DO POINT OF CARE TEST ENTER/EDIT OR DERABLES Final Result from Last 3 Months Insurance [employer] Care Teams Industrial Education Teacher Relationship Specialty Start Date End Date Nikita Kingston MD [address] [place] [address] PCP - General Family Medicine 06/09/23
--- OUTSIDE RECORDS SUMMARY | 2025-03-27 10:42 | XMS_ITS | Encounter Summary ---
Author Organization [facility] Address [address] [place] [address] Care Team Providers Care Signal Tower Operator Name Role Phone Nikita Kingston MD Primary Care Provider [phone] Encounter Details Date Type Department Care Team (Late st Contact Info) Description 06/07/2024 Orders Only [facility] [address] [address] [place] [address] Marilou Ochoa LPN [address] [employer] [address] [place] [place] [address] Social History Tobacco Use Types Packs/Day Years [...] EST Procedure Visit [facility] [address] [address] [place] [address] Breezy Bronson DO [address] [place] [facility] documented as of this encounter Procedures Procedure [...] on filedocumented in this encounter Care Teams Signal Tower Operator Relationship Specialty Start Date End Date Nikita Kingston MD [address] [place] [address] PCP - General Family Medicine 06/09/23 documented as of this encounter
--- OUTSIDE RECORDS SUMMARY | 2025-03-27 10:42 | XMS_ITS | Encounter Summary ---
Author Organization [facility] Address [address] [place] [address] Care Team Providers Care Generator Worker Name Role Phone Nikita Kingston MD Primary Care Provider [phone] Encounter Details Date Type Department Care Team (Late st Contact Info) Description 03/25/2025 Clinisync Result Encounter NOMS External Department Unsolicited Breezy Bronson DO [address] [place] [id number] Social History Tobacco Use Types Packs/Day Years [...] Visit [facility] [address] [place] [id number] Breezy Bronson DO [address] [place] [address] documented as of this encounter Procedures Procedure Name Priority Date/Time Associated Diagnosis Comments TBH PREG QUANT HCG Routine 03/25/2025 12 :31 PM EDT documented in this encounter Results * TBH PREG QUANT HCG (03/25/2025 12:31 PM EDT) HCG QUANTITATIVE 545 mIU/mL TBH Comment: 5-50 0.2-1 WEEK 50-500 1-2 WEEKS 100-5,000 2-3 WEEKS 500-10,000 3-4 WEEKS 1,000-50,000 4-5 WEEKS 10,000-100,000 5-6 WEEKS 15,000-200,000 6-8 WEEKS 10,000-100,000 2-3 MONTHS 03/25/2025 12:3 1 PM EDT 03/25/2025 12:32 PM EDT Narrative CLINISYNC - 03/25/2025 2:06 PM EDT us Breezy Audie DO CLINISYNC Final Result [facility] documented in this encounter Visit Diagnoses Not on filedocumented in this encounter Care Teams Generator Worker Relationship Specialty Start Date End Date Nikita Kingston MD [address] [place] [address] PCP - General Family Medicine 06/09/23 documented as of this encounter
--- OUTSIDE RECORDS SUMMARY | 2025-03-27 10:48 | XMS_ITS | CCD ---
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 Name Role Phone PHYSICIAN, DEFAULT Admitting Unavailable PHYSICIAN, DEFAULT Attending Unavailable FIORDALIZA CHAIREZ Primary Care Unavailable DR MAYNOR BRONSON Attending Unavailable DR MAYNOR BRONSON Consulting DR MAYNOR Weldon Admitting Unavailable Fiordaliza Chairez MD Primary Care Provider [phone] Fiordaliza Chairez Attending Unavailable Fiordaliza Chairez Attending Unavailable Fiordaliza Chairez Attending Unavailable Fiordaliza Chairez Attending Unavailable Fiordaliza Chairez Attending Unavailable Fiordaliza Chairez Attending Unavailable Fiordaliza Chairez Attending Unavailable Fiordaliza Chairez Attending Unavailable MAYNOR BRONSON Attending Unavailable MAYNOR BRONSON Referring Unavailable MAYNOR BRONSON Attending Unavailable Allergies Allergy Classification Reported Allergen(s) Allergy Type Date of Onset Reaction(s) Facility (1 source) No Known Medication Allergies; Translations: [No Known Medication Allergies] Propensity to adverse reactions (disorder) [facility] Repository Medications Current Medications Medication Drug Class(es) Dates Sig (Normalized) Sig (Original) lisdexamfetamine dimesylate 30 mg oral capsule (4 sources) Central Nervous System Stimulant take 1 capsule by mouth in the morning lisdexamfetamine (Vyvanse) 30 MG capsule Take 30 mg by mouth in the morning. Active Lysine (4 sources) LYSINE PO Take b y mouth Active medroxyPROGESTERone acetate 10 mg oral tablet (4 sources) Progestin Start: 5 End: 6 take 1 tablet by mouth once daily, then take 1 tablet by mouth once daily medroxyPROGESTERone (Provera) 10 MG tablet Indications: Irregular menses Take 1 tablet (10 mg) by mouth Daily Take 1 tablet by mouth daily 10 tablet 3 03/13/2025 03/13/2026 Active Vit-Fe Fumarate-FA ( VITAMIN PO) (4 sources) Vit-Fe Fumarate-FA ( VITAMIN PO) Take by mouth Active Completed/Discontinued Medications Medication Drug Class(es) Dates Sig (Normalized) Sig (Original) 24 hr buPROPion hydrochloride 150 mg extended release oral tablet (6 sources) Aminoketone Start: 04-16-2024 End: 03-12-2025 take 1 tablet by mouth every twenty-four hours Wellbutrin XL 150 MG 24 hr tablet Take 150 mg by mouth 04/16/2024 03/12/2025 Discontinued (Therapy completed) levonorgestrel 0.364427 mg/hr intrauterine system (6 sources) Progestin, Progestin-containing Intrauterine Device End: 03-12-2025 Levonorgestrel (Mirena, 52 MG,) 20 MCG/DAY intrauterine device as directed Intrauterine 03/12/2025 Discontinued (Therapy completed) phentermine hydrochloride 37.5 mg oral capsule (3 sources) Sympathomimetic Amine Anorectic End: 06-12-2024 take 1 capsule by mouth in the morning phentermine 37.5 MG capsule Take 37.5 mg by mouth in the morning. 06/12/2024 Discontinued (Other) Problems Problem Classification Problem Date Documented Date Episodic/Chronic Immunizations and screening for infectious disease (1 source) Encounter for screening for human papillomavirus (HPV); Translations: [ENC SCREENING HUMAN PAPILLOMAVIRUS] Onset: 06-07-2022 Episodic Menstrual disorders (4 sources) Missed period; Translations: [Irregular menstruation, unspecified] 03-12-2025 Chronic Other endocrine disorders (2 sources) Polycystic ovary syndrome; Translations: [Polycystic ovarian syndrome] 03-12-2025 Chronic Other screening for suspected conditions (not mental disorders or infectious disease) (4 sources) Encounter for screening for malignant neoplasm of cervix; Translations: [ENC SCREENING MALIG NEOPLASM CERV] Onset: 06-03-2022 Episodic Results Test Name Value Interpretation Reference Range Facility [facility] PREG QUANT HCGon 025 HCG QUANTITATIVE 545 mIU/mL [facility] Comment on above: 5-50 0.2-1 WEEK 50-500 1-2 WEEKS 100-5,000 2-3 WEEKS 500-10,000 3-4 WEEKS 1,000-50,000 4-5 WEEKS 10,000-100,000 5-6 WEEKS 15,000-200,000 6-8 WEEKS 10,000-100,000 2-3 MONTHS [facility] US PELVIC COMPLETE W/ TVon 0 03-19-2025 US PELVIC COMPLETE W/ TV EXAM: US PELVIC COMPLETE W/ TV HISTORY: [...] II, MD, PHD at 21-Mar-2025 08:05:10 AM [facility] Normal Not Available Comment on above: Order Comment: US PE LVIS-TRANSVAG IF INDICATED Patient's last menstrual period was 12/13/2024 (exact date). ALL CBC WITH AUTO DIFFon BASOPHILS ABSOLUTE AUTO 0 [facility] Basophils/100 WBC (Bld) 0.2 % 0.2 - 2.0 % [facility] Eosinophils/100 WBC (Bld) 0.8 % Low 0.9 - 7.0 % [facility] Erythrocyte distribution width (RBC) [Ratio] 12.6 % 11.0 - 15.0 % [facility] Hematocrit (Bld) [Volume fraction] 42.1 % 36.0 - 48.0 % [facility] Hemoglobin (Bld) [Mass/Vol] 14.6 g/dL 12.0 - 16.0 g/dL [facility] IMMATURE GRANULOCYTES ABS AUTO 0.04 High [facility] Immature granulocytes/100 WBC (Bld) 0.4 % 0.0 - 0.5 % [facility] Interpretation and review of laboratory results Abnormal [facility] LYMPHOCYTES ABSOLUTE AUTO 1.9 [facility] Lymphocytes/100 WBC (Bld) 17.8 % Low 20.5 - 60.0 % [facility] MCH (RBC) [Entitic mass] 29.8 pg 26.7 - 34.0 pg [facility] MCHC (RBC) [Mass/Vol] 34.7 g/dL 29.9 - 35.2 g/dL [facility] MCV (RBC) [Entitic vol] 85.9 fL 81.0 - 99.0 fL [facility] MONOCYTES ABSOLUTE AUTO 0.6 [facility] Monocytes/100 WBC (Bld) 5.5 % 1.7 - 12.0 % [facility] NEUTROPHILS ABSOLUTE AUTO 8 High [facility] Neutrophils/100 WBC (Bld) 75.3 % High 43.0 - 75.0 % [facility] Platelet mean volume (Bld) [Entitic vol] 10 fL 9.5 - [facility] [facility].1 [facility] TB PLT 287 [facility] TB RBC 4.9 [facility] WBC 10.6 [facility] HCG ( test) Ql (U)o n 03-12-2025 Interpretation and review of laboratory results Normal [facility] Preg Test, Ur Negative Negative [facility] care [facility] Family Medicine Office/Clini c Noteon 12-11-2024 Family Medicine Office/Clinic Note Family Medicine Office/Clinic Note Chief Complaint 1m follow up Difficulty maintaining concentration despite initial improvement with medication. HPI Staff 1m follow up to starting Vyvanse for weight management & concentration deficit. Started on Vyvanse Sleeping well:Yes, 6-8 hours Chest pain:No Tremors:No Headaches:No Heart fluttering:No Blurred Vision:No Starting Weight: 235lbs Weight this visit: 231.926lbs History of Present Illness - The patient is a 28 year old female presenting with attention and concentration deficit. - Initial medication use improved concentration, but difficulties have returned. - Reports easily being distracted, particularly if engaging with electronics immediately after medication. - Weight reduction noted; improved eating habits. - Menstrual cycle is delayed by two weeks; negative tests. - No current issues with heart rate or blood pressure. - Discussion of weight management noted with positive weight loss. - Menstrual cycle regularity discussed, with potential influence from weight loss. - No current cardiovascular risk as recent blood pressure and heart rate were normal. Review of Systems PHQ Score Initial Depression Screen Score: 0 SCORE Physical Exam Vitals & Measurements T: 36.8 ???C(Tympanic) HR: 70(Peripheral) RR: 18 BP: 130/82 SpO2: 100% HT: 65 in HT: 165.2 cm WT: 231.926 lb WT: 105.2 kg BMI: 38.55 General: alert, no acute distress ENMT: oral mucosa moist Cardiovascular: Regular rate and rhythm, normal peripheral perfusion, heart rate looks great, blood pressure looks good Respiratory: Lungs clear to auscultation, respirations non labored Extremities: no deformity, no trauma Neurological: oriented x 4, level of consciousness appropriate for age, CN II-XII intact, motor strength equal & normal bilaterally, speech normal Abdomen: Soft, Non-tender, Non-distended, + Bowel sounds Assessment/Plan 1. Mild episode of recurrent major depressive disorder (F33.0: Major depressive disorder, recurrent, mild) - In remission Ordered: Drug Screen POC 24714 HCG, Urine POC 36503 2. Anxiety (F41.9: Anxiety disorder, unspecified) - Well controlled. 3. GERD without esophagitis (K21.9: Gastro-esophageal reflux disease without esophagitis) - Continue standard management. 4. Concentration deficit (R41.840: Attention and concentration deficit) - Adjust medication use strategy to improve focus. - Avoid distractions after taking medication. - Maintain current dosage in view of weight progress. Ordered: Drug Screen POC 28108 HCG, Urine POC 60042 5. BMI 38.0-38.9,adult (Z68.38: Body mass index [BMI] 38.0-38.9, adult) - Continue monitoring weight loss. 6. Obesity (BMI 30-39.9) (E66.9: Obesity, unspecified) - Loosing weight with Vyvanse 7. Nonsmoker (Z78.9: Other specified health status) - Please continue to not smoke. 8. Irregular menstruation, unspecified (N92.6) - Upreg neg - Precaution with stimulant. Ordered: Drug Screen POC 76751 HCG, Urine POC 87398 Orders: lisdexamfetamine, 30 mg, 1 cap(s), Oral, qAM, 90 cap(s), Refill(s) 0, [employer] 165.2, cm, 12/11/24 9:08:00 EDT, Height/Length Dosing, 105.2, kg, 12/11/24 9:08:00 EDT, Weight Dosing - Urine drug screen ordered. - 28 year old female with history of major depressive disorder and anxiety presenting with attention and concentration deficit. - Current decreased concentration observed after initial improvement with medication. - Concern of medication impact on menstrual cycle due to current irregularity. During the visit, I discussed with the patient the importance of timing and context when taking her medication for concentration enhancement, advising her to avoid distractions like electronic devices immediately afterwards. We deliberated on her recent success in weight loss, highlighting its potential impact on menstrual cycle regularity, and agreed to observe her cycles for any further anomalies. We collectively decided against adjusting her medication dose to support her weight progress. For her menstrual irregularity, we opted to conduct a test and continue monitoring her cycles. The patient is to remain vigilant about interruptions to her focus based on the aforementioned strategies. We addressed other ongoing health issues and reinforced current management plans without any changes. Follow-up No qualifying data available Problem List/Past Medical History Ongoing Anxiety BMI 38.0-38.9,adult Concentration deficit Excessive dietary caloric intake GERD without esophagitis Mild episode of recurrent major depressive disorder Nonsmoker Obesity (BMI 30-39.9) Historical No qualifying data Procedure/Surgical History section. Medications Vyvanse 30 mg oral capsule, 30 mg= 1 cap(s), Oral, qAM Allergies No Known Medication Allergies Social History Alcohol Current. Wine, Liquor. 1-2 times per month., (more content not included)... Normal [facility] Comment on above: Result Comment: Elec tronically Signed By: Thee SONG, Fiordaliza Solitario\.br\Date and Time Signed: 12/11/24 09:43 EDT Ambulatory Visit Summaryon 0 12-03-2024 Ambulatory Visit Summary Ambulatory Visit Summary CHIKIS MEJIA :1995 Visit Date:12/03/2024 Ambulatory Visit Instructions Your Diagnosis BMI 38.0-38.9,adult Obesity (BMI 30-39.9) Nonsmoker Your Care Team Attending Physician - Fiordaliza Chairez MD Primary Care Physician - Fiordaliza Chairez MD This Is Your Medications List lisdexamfetamine (Vyvanse 30 mg oral capsule) Procedures Performed section. Discharge Vitals Temperature (Tympanic) 36.9 ???C Heart Rate (Peripheral) 74 Respiratory Rate 18 Blood Pressure 142/88 Height 165.2 cm Height 65 in Weight 104.2 kg Weight 229.721 lb BMI 38.18 What to do next Scheduled Follow-Up Appointments Tuesday. 2024 9:00 AM EDT With: Fiordaliza Chairez MD Where: [place] [address]- Medications What How Much When Instructions Unchanged lisdexamfetamine (Vyvanse 30 mg oral capsule) 1 Capsules By Mouth Once a day (in the morning) Allergies No Known Medication Allergies Problems Ongoing - Any problem that you are currently receiving treatment for. Anxiety BMI 38.0-38.9,adult Concentration deficit Excessive dietary caloric intake GERD without esophagitis Mild episode of recurrent major depressive disorder Nonsmoker Obesity (BMI 30-39.9) Patient Survey You may receive a survey via text or e-mail asking about your office visit. Please share your experience with us by completing your survey. We appreciate your feedback and thank you for choosing us for your care. Normal [facility] Medicine Office/Clini c Noteon 12-03-2024 Family Medicine Office/Clinic Note Family Medicine Office/Clinic Note Chief Complaint Acute Visit Painful oral ulcer HPI Staff Pt presents today for acute visit. Has been having a toothache since night. Has been seen by the dentist who cleared her for infection. NEG Xrays done this am by dentist as well. 10/08 right now with ibuprofen & Tylenol. History of Present Illness - The patient is a 28-year-old female presenting with a painful oral ulcer. - Ulcer present since night, near the right side tooth. - Pain exacerbated by hot, cold, or sour intake. - Previous use of lysine for prevention noted. - No signs of infection; stress is a possible factor. Review of Systems PHQ Score Initial Depression Screen Score: 0 SCORE Physical Exam Vitals & Measurements T: 36.9 ???C(Tympanic) HR: 74(Peripheral) RR: 18 BP: 142/88 SpO2: 99% HT: 65 in HT: 165.2 cm WT: 229.721 lb WT: 104.2 kg BMI: 38.18 Ulcer near the gum of the tooth noted. Assessment/Plan 1. BMI 38.0-38.9,adult (Z68.38: Body mass index [BMI] 38.0-38.9, adult) - BMI education added. 2. Obesity (BMI 30-39.9) (E66.9: Obesity, unspecified) - Monitor weight management. 3. Nonsmoker (Z78.9: Other specified health status) - Acknowledge status. 4. Recurrent oral aphthae (K12.0) - Evaluate for aphthous ulcer. - Reassure on non-infection. - OTC meds advised. - 28-year-old female with a history of obesity presenting with a painful oral ulcer. - Likely aphthous ulcer; non-infected. - Stress and nerve irritation considered contributing factors. During our discussion, we reviewed the patient's oral ulcer, likely an aphthous ulcer, and provided reassurance regarding the absence of infection. I discussed the potential for stress as a contributing factor, and we explored the option of lysine for symptomatic relief. We also briefly acknowledged the patient's obesity management plan and noted her nonsmoking status, reinforcing healthy lifestyle choices. No additional diagnostic studies or interventions were discussed. The patient expressed understanding and agreement with the proposed management strategies. Follow-up No qualifying data available Problem List/Past Medical History Ongoing Anxiety BMI 38.0-38.9,adult Concentration deficit Excessive dietary caloric intake GERD without esophagitis Mild episode of recurrent major depressive disorder Nonsmoker Obesity (BMI 30-39.9) Historical No qualifying data Procedure/Surgical History section. Medications Vyvanse 30 mg oral capsule, 30 mg= 1 cap(s), Oral, qAM Allergies No Known Medication Allergies Social History Alcohol Current. Wine, Liquor. 1-2 times per month., 05/31/2024 Substance Abuse Never., 05/31/2024 Tobacco Never (less than 100 in lifetime) Tobacco Use:. Never Smokeless Tobacco Use:. Household tobacco concerns: No. Yes, 12/03/2024 Family History Alcoholism: Grandparent. Depression: Mother. Stroke: Grandparent. Immunizations Vaccine Date Status influenza virus vaccine, inactivated 08/15/2023 Given influenza virus vaccine, inactivated 08/14/2021 Recorded SARS-CoV-2 (COVID-19) mRNA BNT-162b2 vax 08/14/2021 Recorded SARS-CoV-2 (COVID-19) mRNA BNT-162b2 vax 11/20/2020 Recorded SARS-CoV-2 (COVID-19) mRNA BNT-162b2 vax 10/31/2020 Recorded influenza virus vaccine, inactivated 07/01/2019 Recorded influenza virus vaccine, inactivated 05/16/2018 Recorded Normal [facility] Comment on above: Result Comment: Elec tronically Signed By: Fiordaliza Chairez MD\.br\Date and Time Signed: 12/03/24 13:33 EDT Ambulatory Visit Summaryon 0 11-08-2024 Ambulatory Visit Summary Ambulatory Visit Summary CHIKIS MEJIA Tj :1995 Visit Date:11/08/2024 Ambulatory Visit Instructions Your Diagnosis Anxiety Excessive dietary caloric intake Concentration deficit GERD without esophagitis BMI 39.0-39.9,adult Obesity (BMI 30-39.9) Nonsmoker Your Care Team Attending Physician - Fiordaliza Chairez MD Primary Care Physician - Fiordaliza Chairez MD This Is Your Medications List buPROPion (Wellbutrin XL 150 mg/24 hours Tab-ER) Procedures Performed section. Discharge Vitals Temperature (Tympanic) 36.8 ???C Heart Rate (Peripheral) 86 Respiratory Rate 18 Blood Pressure 122/76 Height 165.2 cm Height 65 in Weight 106.8 kg Weight 235.453 lb BMI 39.13 What to do next Scheduled Follow-Up Appointments Tuesday. 2024 9:15 AM EDT With: Fiordaliza Chairez MD Where: [facility] [id number] [place] [address]- Medications What How Much When Instructions Unchanged buPROPion (Wellbutrin XL 150 mg/ 24 hours Tab-ER) 1 Tablets By Mouth Every 24 hours Allergies No Known Medication Allergies Problems Ongoing - Any problem that you are currently receiving treatment for. Anxiety BMI 39.0-39.9,adult Concentration deficit Excessive dietary caloric intake GERD without esophagitis Mild episode of recurrent major depressive disorder Nonsmoker Obesity (BMI 30-39.9) Patient Survey You may receive a survey via text or e-mail asking about your office visit. Please share your experience with us by completing your survey. We appreciate your feedback and thank you for choosing us for your care. Normal [facility] Medicine Office/Clini c Noteon 11-08-2024 Family Medicine Office/Clinic Note Family Medicine Office/Clinic Note Chief Complaint Discuss Weight Loss HPI Staff Pt presents today to discuss weight loss. Per last encounter pt stopped injection due to cost & increased anxiety. Prior encounter did mention Vyvanse a possibility due to binge eating & concentration deficit. Pt states she has also tried addipex in the past. History of Present Illness Patient presents today to discuss about weight loss. Patient no longer wants to get . Patient is hoping for a stimulant to help. Patient is working with a tornado chaser. Patient is starting to exercise. Discussed with the patient how she struggles with eating breakfast and lunch but then will overeat at dinner. Discussed about that pattern being a binge eating pattern. Discussed how we could use Vyvanse to help with binge eating. Patient is in agreement. Patient has gained 19 pounds since June. Review of Systems PHQ Score Initial Depression Screen Score: 0 SCORE Physical Exam Vitals & Measurements T: 36.8 ???C(Tympanic) HR: 86(Peripheral) RR: 18 BP: 122/76 SpO2: 100% HT: 65 in HT: 165.2 cm WT: 235.453 lb WT: 106.8 kg BMI: 39.13 General: alert, no acute distress ENMT: oral mucosa moist, Cardiovascular: regular rate and rhythm, normal peripheral perfusion Respiratory: Lungs CTA, respirations non labored Extremities: no deformity, no trauma Neurological: oriented x 4, LOC appropriate for age, CN II-XII intact, motor strength equal & normal bilaterally, speech normal Assessment/Plan 1. Anxiety (F41.9: Anxiety disorder, unspecified) No issues at this time. Patient is not on Wellbutrin anymore. 2. Excessive dietary caloric intake (R63.2: Polyphagia) Will try Vyvanse 30. This is for binge eating disorder as the patient eats at night without eating breakfast or lunch. Patient is trying to change that with a tornado chaser. 3. Concentration deficit (R41.840: Attention and concentration deficit) Will use Vyvanse to help with the concentration issues. 4. GERD without esophagitis (K21.9: Gastro-esophageal reflux disease without esophagitis) No symptoms at this time. 5. BMI 39.0-39.9,adult (Z68.39: Body mass index [BMI] 39.0-39.9, adult) BMI education added. 6. Obesity (BMI 30-39.9) (E66.9: Obesity, unspecified) Diet and exercise advised 7. Nonsmoker (Z78.9: Other specified health status) Please continue not to smoke Orders: lisdexamfetamine, 30 mg, 1 cap(s), Oral, qAM, 30 cap(s), Refill(s) 0, [employer], 165.2, cm, 11/08/24 13:20:00 EDT, Height/Length Dosing, 106.8, kg, 11/08/24 13:20:00 EDT, Weight Dosing Follow-up No qualifying data available Problem List/Past Medical History Ongoing Anxiety BMI 39.0-39.9,adult Concentration deficit Excessive dietary caloric intake GERD without esophagitis Mild episode of recurrent major depressive disorder Nonsmoker Obesity (BMI 30-39.9) Historical No qualifying data Procedure/Surgical History section. Medications Vyvanse 30 mg oral capsule, 30 mg= 1 cap(s), Oral, qAM Allergies No Known Medication Allergies Social History Alcohol Current. Wine, Liquor. 1-2 times per month., 05/31/2024 Substance Abuse Never., 05/31/2024 Tobacco Never (less than 100 in lifetime) Tobacco Use:. Never Smokeless Tobacco Use:. Household tobacco concerns: No. Yes, 11/08/2024 Family History Alcoholism: Grandparent. Depression: Mother. Stroke: Grandparent. Immunizations Vaccine Date Status influenza virus vaccine, inactivated 08/15/2023 Given influenza virus vaccine, inactivated 08/14/2021 Recorded SARS-CoV-2 (COVID-19) mRNA BNT-162b2 vax 08/14/2021 Recorded SARS-CoV-2 (COVID-19) mRNA BNT-162b2 vax 11/20/2020 Recorded SARS-CoV-2 (COVID-19) mRNA BNT-162b2 vax 10/31/2020 Recorded influenza virus vaccine, inactivated 07/01/2019 Recorded influenza virus vaccine, inactivated 05/16/[address] [facility] Comment on above: Result Comment: Elec tronically Signed By: Thee SONG, Fiordaliza Jose\Date and Time Signed: 11/08/24 14:20 EDT IGP,APTIMA HPV,AGE GDLNon AGE GDLN ACOG TESTING Note . [facility] Comment on above: TESTS RESULT FLAG UN ITS REF RANGE LAB Clinician Provided Cytology Information Source.............Cervix;Endocervix No. of containers..01 ThinPrep Vial Age Algo ACOG Sanjuana... -29 08 FLAG LEGEND: L-Low Normal,H-High Normal,LL-Alert Low,HH-Alert High <-Panic Low,>-Panic High,A-Abnormal,AA-Critical Abnormal Performed at: 01 =[facility] [place] [address] Kelli Bowman MD, IGP, RFX APTIMA HPV ASCU Note . [facility] Comment on above: TESTS RESULT FLAG UN ITS REF RANGE LAB DIAGNOSIS: 02 NEGATIVE FOR INTRAEPITHELIAL LESION OR MALIGNANCY. Specimen adequacy: 02 Satisfactory for evaluation. Endocervical and/or squamous metaplastic cells (endocervical component) are present. Performed by: 02 Kendra Delgado Switch Foreman ([facility]) . 02 Note: Note 02 The Pap smear is a screening test designed to aid in the detection of premalignant and malignant conditions of the uterine cervix. It is not a diagnostic procedure and should not be used as the sole means of detecting cervical cancer. Both false-positive and false-negative reports do occur. Test Methodology: Note 02 This liquid based ThinPrep(R) pap test was screened with the use of an image guided system. . 02 The HPV DNA reflex criteria were not met with this specimen result therefore, no HPV testing was performed. FLAG LEGEND: L-Low Normal,H-High Normal,LL-Alert Low,HH-Alert High <-Panic Low,>-Panic High,A-Abnormal,AA-Critical Abnormal Performed at: 02 [facility] [address] [place] [address] Kelli Bowman MD, Performed at: =G - [facility] [address], [place] [id number] [employer] Equipment Erector: Kelli Bowman MD, Phone: [phone] Performed at: [facility] [address] [place], [place] [id number] [employer] Equipment Erector: Kelli Bowman MD, Phone: [phone] [facility] Ambulatory Visit Summaryon 1 08-12-2023 Ambulatory Visit Summary Ambulatory Visit Summary CHIKIS MEJIA :1995 Visit Date:06/12/2024 Ambulatory Visit Instructions Your Diagnosis Excessive dietary caloric intake Concentration deficit BMI 35.0-35.9,adult Nonsmoker GERD without esophagitis Your Care Team Attending Physician - Fiordaliza Chairez MD Primary Care Physician - Fiordaliza Chairez MD This Is Your Medications List buPROPion (Wellbutrin XL 150 mg/24 hours Tab-ER) [Image Removed: STOP]Stop taking these medications famotidine (Pepcid 20 mg Tab) Procedures Performed section. Discharge Vitals Temperature (Oral) 37.0 ???C Heart Rate (Peripheral) 71 Respiratory Rate 18 Blood Pressure 124/76 Height 165.2 cm Height 65 in Weight 98.2 kg Weight 216.494 lb BMI 35.98 What to do next Scheduled Follow-Up Appointments Tuesday. 2024 9:15 AM EDT With: Fiordaliza Chairez MD Where: [address] [address]- Medications What How Much When Instructions Unchanged buPROPion (Wellbutrin XL 150 mg/ 24 hours Tab-ER) 1 Tablets By Mouth Every 24 hours Pickup at [facility] Pharmacy Information [id number]: [address] [place], [place] [id number] [phone] What How Much When Comments Stop Taking famotidine (Pepcid 20 mg Tab) 1 Tablets By Mouth 2 times a day Allergies No Known Medication Allergies Problems Ongoing [...] you for choosing us for your care. Chen Sandhu [facility] Medicine Office/Clini c Noteon 06-12-2024 Family Medicine Office/Clinic Note Family Medicine Office/Clinic Note Chief Complaint Weight Management HPI Staff Chikis is a 28 year old female presenting for 8 week follow up weight EDER discussed possibly adding vyvanse for binge eating and concentration deficit. Did add pepcid for GERD. Has improved Stopped injection @ last office visit. States anxiety was high & due to cost. Weight management Sleeping well:Yes, 6-8 hours Chest pain:No Tremors:No Headaches:No Heart fluttering:No Blurred Vision:No Starting Weight: 229 Weight last visit: 205.26 Weight this visit: 216lbs ADRIANA: 3 (Restarted Wellbutrin @ EDER) questions/concerns: Has been discussing having another child with . History of Present Illness Here for follow up. Going to the gym 2-3x a week. Watching what she is eating. Still gained weight. Wellbutrin working well. Pt does not want Vyvanse until after she is has another kid. Review of Systems PHQ Score Initial Depression Screen Score: 1 SCORE Physical Exam Vitals & Measurements T: 37.0 ???C(Oral) HR: 71(Peripheral) RR: 18 BP: 124/76 SpO2: 97% HT: 65 in HT: 165.2 cm WT: 98.2 kg WT: 216.494 lb BMI: 35.98 General: alert, no acute distress ENMT: oral mucosa moist, Cardiovascular: regular rate and rhythm, normal peripheral perfusion Respiratory: Lungs CTA, respirations non labored Extremities: no deformity, no trauma Neurological: oriented x 4, LOC appropriate for age, CN II-XII intact, motor strength equal & normal bilaterally, speech normal Abdomen: Soft, Nontender, Non-distended, + BS Assessment/Plan 1. Excessive dietary caloric intake (R63.2: Polyphagia) Patient is can use diet and exercise to help with weight. Discussed increasing physical activity and watching nutritional status to help. 2. Concentration deficit (R41.840: Attention and concentration deficit) Stable. Patient still finds herself distracted however with the patient wanting to get we will continue on Wellbutrin. 3. BMI 35.0-35.9,adult (Z68.35: Body mass index [BMI] 35.0-35.9, adult) BMI education added 4. Nonsmoker (Z78.9: Other specified health status) Please continue to not smoke 5. GERD without esophagitis (K21.9: Gastro-esophageal reflux disease without esophagitis) Patient is no longer having issues. We will stop the Pepcid. Orders: buPROPion, 150 mg = 1 tab(s), Oral, q24hr, # 90 tab(s), Refills(s) 1, Pharmacy: [id number], 165.2, cm, 06/12/24 9:18:00 EST, Height/Length Dosing, 98.2, kg, 06/12/24 9:18:00 EST, Weight Dosing Pt needs to discuss all meds with Dr. Bronson with . Follow-up No qualifying data available Patient Education BMI for Adults Problem List/Past Medical History Ongoing Anxiety Concentration deficit Excessive dietary caloric intake GERD without esophagitis Mild episode of recurrent major depressive disorder Historical No qualifying data Procedure/Surgical History section. Medications Wellbutrin XL 150 mg/24 hours Tab-ER, 150 mg= 1 tab(s), Oral, q24hr, 1 refills Allergies No Known Medication Allergies Social History Alcohol Current. Wine, Liquor. 1-2 times per month., 05/31/2024 Substance Abuse Never., 05/31/2024 Tobacco Never (less than 100 in lifetime) Tobacco Use:. Never Smokeless Tobacco Use:. Household tobacco concerns: No. Yes, 06/12/2024 Family History Alcoholism: Grandparent. Depression: Mother. Stroke: Grandparent. Immunizations Vaccine Date Status influenza virus vaccine, inactivated 08/15/2023 Given influenza virus vaccine, inactivated 08/14/2021 Recorded SARS-CoV-2 (COVID-19) mRNA BNT-162b2 vax 08/14/2021 Recorded SARS-CoV-2 (COVID-19) mRNA BNT-162b2 vax 11/20/2020 Recorded SARS-CoV-2 (COVID-19) mRNA BNT-162b2 vax 10/31/2020 Recorded influenza virus vaccine, inactivated 07/01/2019 Recorded influenza virus vaccine, inactivated 05/16/2018 Recorded Normal [facility] Comment on above: Result Comment: Elec tronically Signed By: Fiordaliza Chairez MD\.br\Date and Time Signed: 06/12/24 09:45 EST Ambulatory Visit Summaryon 0 04-16-2024 Ambulatory Visit [...] Follow-Up Appointments Tuesday 9:30 AM EDT With: Fiordaliza Chairez MD Where: [place] [address]- Medications What How Much When Instructions Unchanged [...] for choosing us for your care. Normal [facility] Family Medicine Office/Clini c Noteon 04-16-2024 Family [...] q24hr, # 90 tab(s), Refills(s) 0, Pharmacy: [facility], 165.2, cm, 04/16/24 14:53:00 EDT, Height/Length Dosing, 93.3, kg, 04/16/24 14:53:00 EDT, Weight Dosing famotidine, 20 mg = 1 tab(s), Oral, BID, # 180 tab(s), Refills(s) 0, Pharmacy: [facility], 165.2, cm, 04/16/24 14:53:00 EDT, Height/Length [...] virus vaccine, inactivated 05/16/[address] [facility] Comment on above: Result Comment: Elec tronically Signed By: Thee SONG, Fiordaliza Andrew.br\Date and Time Signed: 04/16/24 15:08 EDT Retail - Clinical Noteon Retail - Clinical Note [id number] .00TIFF Normal [facility] Medicine Office/Clini c Noteon 01-16-2024 Family Medicine [...] virus vaccine, inactivated 05/16/[address] [facility] Comment on above: Result Comment: Elec tronically Signed By: Thee OSNG, Fiordaliza Andrew.br\Date and Time Signed: 01/16/24 15:52 EDT Patient Educationon 01-16-20 Patient Education Nutrition BMI for Adults What [...] numbers. This can be done either in [place]ian (U.[place] or metric measurements. Note that charts and online BMI calculators are available to help you find your BMI quickly and easily without having to do these calculations yourself. To calculate your BMI in [place]ian ([place] measurements: 1. Measure your weight in [...] for Disease Control and Prevention: www.cdc.gov ? [place] Heart Association: www.heart.org ? National Heart, Lung, and Blood [place]: www.nhlbi.nih.gov Summary ? Body mass index (BMI) is a number that is calculated from a person's weight and height. ? BMI may help estimate how much of a person's weight is composed of fat. BMI can help identify those who may be at higher risk for certain medical problems. ? BMI can be measured using [place]ian measurements or metric measurements. ? BMI charts are used to identify whether you are underweight, normal weight, overweight, or obese. This information is not intended to replace advice given to you by your health care provider. Make sure you discuss any questions you have with your health care provider. Document Revised: 04/09/2020 Document Reviewed: 02/15/2020 [employer] Patient Education ? 2022 [employer] [facility] Retail - Clinical Noteon Retail - Clinical Note [id number] .00TIFF [facility] Family Medicine Office/Clini c Noteon 12-19-2023 Family [...] influenza virus vaccine, inactivated 05/16/2018 Recorded Normal [facility] Comment on above: Result Comment: Elec tronically Signed By: Thee SONG, Fiordaliza Andrew.br\Date and Time Signed: 12/19/23 17:24 EDT PAP ACOG PANEL 2: 21 to 29on 06-10-2022 . . Normal [facility] Comment on above: Result Comment: Perf ormed at: BA Performed By: #### [id number] #### [facility] [address] [address] [address] Liz Paula DIAGNOSIS: Comment Normal [facility] Comment on above: Result Comment: NEGA TIVE FOR INTRAEPITHELIAL LESION OR MALIGNANCY. Performed at: BA Performed By: #### [id number] #### [facility] [address] [address] [address] Liz Paula Methodology: Comment Normal [facility] Comment on above: Result Comment: This liquid based ThinPrep(R) pap test was screened with the use of an image guided system. Performed at: WB Performed By: #### [id number] #### [facility] [address] [place] [address] Dr. Liz Paula Note: Comment Normal [facility] Comment on above: Result Comment: The Pap smear is a screening test designed to aid in the detection of premalignant and malignant conditions of the uterine cervix. It is not a diagnostic procedure and should not be used as the sole means of detecting cervical cancer. Both false-positive and false-negative reports do occur. . Performed at: WB Performed By: #### [id number] #### [facility] [address] [place] [address] Dr. Liz Paula Performed by: Comment Normal [facility] Comment on above: Result Comment: Germaine Espitia, Switch Foreman (ASCP) Performed at: BA Performed By: #### [id number] #### [facility] [address] [place] [address] Dr. Liz Paula Reflex Criteria: Comment [facility] Comment on above: Result Comment: The HPV DNA reflex criteria were not met with this specimen result therefore, no HPV testing was performed. . Performed at: BA Performed By: #### [id number] #### [facility] [address] [place] [address] Dr. Liz Paula Specimen adequacy: Comment Normal [facility] Comment on above: Result Comment: Sati sfactory for evaluation. Endocervical and/or squamous metaplastic cells (endocervical component) are present. Performed at: BA Performed By: #### [id number] #### [facility] [address] [place] [address] Dr. Liz Paula Age Gdln ACOG Testing 21-[address] [facility] Comment on above: Performed By: #### [id number] #### [facility] [address] [place] [address] Dr. Liz Paula Vital Signs Date Time Vital Sign Value Performing Clinician Faci lity 03-12-2025 09:33-0400 Body mass index (BMI) [Ratio] 37.74 kg/m2 Maynor Audie DO Work Phone: [facility] 03-12-2025 09:33-0400 Body weight 106.05 kg Maynor Audie DO Work Phone: [facility] 03-12-2025 09:33-0400 Diastolic blood pressure 76 mm[Hg] Maynor Audie DO Work Phone: [facility] 03-12-2025 09:33-0400 Systolic blood pressure 126 mm[Hg] Maynor Audie DO Work Phone: [facility] 06-12-2024 11:15-0500 Body mass index (BMI) [Ratio] 34.83 kg/m2 Maynor Audie DO Work Phone: [facility] 06-12-2024 11:15-0500 Body weight 97.89 kg Maynor Audie DO Work Phone: [facility] 06-12-2024 11:15-0500 Diastolic blood pressure 82 mm[Hg] Maynor Audie DO Work Phone: [facility] 06-12-2024 11:15-0500 Systolic blood pressure 120 mm[Hg] Maynor Audie DO Work Phone: [facility] Healthcare Encounters Encounter Date Encounter Type Care Provider Facility Start: 03-25-2025 End: 03-25-2025 Clinisync Result Encounter Maynor Audie DO Work Phone: [facility] External Department Unsolicited Start: 03-25-2025 End: 03-25-2025 Clinisync Result Encounter Maynor Audie DO Work Phone: [facility] External Department Unsolicited Start: 03-19-2025 End: 03-19-2025 ambulatory MAYNOR AUDIE Not Available Start: 03-14-2025 ambulatory Fiordaliza Chairez Facility :[facility] Start: 03-12-2025 End: 03-12-2025 Bamboo flowsheet Maynor Audie DO Work Phone: [facility] Start: 03-12-2025 End: 03-12-2025 Bamboo flowsheet Maynor Audie DO Work Phone: [facility] Start: 03-12-2025 End: 03-12-2025 Clinisync Result Encounter Maynor Audie DO Work Phone: [facility] Unsolicited Start: 03-12-2025 End: 03-12-2025 Office outpatient visit 15 minutes Maynor Audie DO Work Phone: [facility] Comment on above: Missed menses; Irregular menses; PCOS (polycystic ovarian syndrome) Start: 03-12-2025 End: 03-12-2025 ambulatory MAYNOR AUDIE Not Available Start: 12-11-2024 End: 12-11-2024 ambulatory Fiordaliza Chairez Facility:[facility] Start: 12-03-2024 End: 12-03-2024 ambulatory Fiordaliza Chairez Facility:[facility] Start: 11-08-2024 End: 11-08-2024 ambulatory Fiordaliza Chairez Facility:[facility] Start: 06-12-2024 End: 06-12-2024 Bamboo flowsheet Maynor Audie DO Work Phone: [facility] Start: 06-12-2024 End: 06-21-2024 Bamboo flowsheet Maynor Audie DO Work Phone: [facility] Start: 06-12-2024 End: 06-21-2024 Clinisync Result Encounter Maynor Audie DO Work Phone: [facility] Unsolicited Start: 06-12-2024 End: 06-12-2024 Patient encounter procedure Maynor Audie DO Work Phone: [facility] Work Phone: Start: 06-12-2024 End: 06-12-2024 Periodic preventive med est patient 18-39 yrs Maynor Audie DO Work Phone: [facility] Comment on above: Well woman exam with routine gynecological exam Start: 06-12-2024 End: 06-12-2024 ambulatory MAYNOR AUDIE Not Available Start: 06-12-2024 End: 06-12-2024 ambulatory Fiordaliza Chairez Facility: [facility] Start: 04-16-2024 End: 04-16-2024 ambulatory Fiordaliza Chairez Facility: [facility] Start: 01-16-2024 End: 01-16-2024 ambulatory Fiordaliza Chairez Facility:[facility] Start: 12-19-2023 End: 12-19-2023 ambulatory Fiordaliza Chairez Facility:[facility] Start: 06-03-2022 End: 06-03-2022 ambulatory FIORDALIZA CHAIREZ Facility: Start: 11-08-2018 End: 11-09-2018 Patient encounter procedure DEFAULT PHYSICIAN Facility:[facility] Procedures Date Procedure Procedure Detail Performing Clinician Start: 03-25-2025 [facility] PREG QUANT HCG Core y Audie DO Work Phone: Start: 03-12-2025 ALL CBC WITH AUTO DIFF Maynor Audie DO Work Phone: Start: 03-12-2025 Urine test visual color cmprsn meths Maynor Audie DO Work Phone: Start: 06-12-2024 IGP,APTIMA HPV,AGE GDLN Maynor Audie DO Work Phone: Plan of Treatment Date Care Activity Detail Author Start: 07-15-2025 End: 07-15-2025 Patient encounter procedure 07/15/2025 9:20 AM EST Procedure Visit [facility] [address] [place] [address] Maynor Bronson, DO [address] [place] [address] [facility] Start: 06-18-2025 End: 06-18-2025 Patient encounter procedure [facility] Start: 09-01-2025 Influenza vaccination Influenza Vacc ine (#1) [facility] Start: 03-19-2025 End: 03-19-2025 Professional / ancillary services management 03/19/2025 11:00 AM EDT Ancillary Procedure [facility] [address] [place] [id number] [facility] Start: 03-12-2025 End: 03-12-2026 Antimullerian hormone (AMH) Antimullerian hormone (AMH) Lab Routine Missed menses Irregular menses Expected: 03/12/2025 (Approximate), Expires: 03/12/2026 [facility] Comment on above: Expected: 03/12/2025 (Approximate), Expires: 03/12/2026 Start: 03-12-2025 End: 03-12-2026 DHEA DHEA Lab Routine Missed menses Irregular menses PCOS (polycystic ovarian syndrome) Expected: 03/12/2025 (Approximate), Expires: 03/12/2026 [facility] Comment on above: Expected: 03/12/2025 (Approximate), Expires: 03/12/2026 Start: 03-12-2025 End: 03-12-2026 US Pelvis US Pelvis w/ TV Imaging Routine Missed menses Irregular menses PCOS (polycystic ovarian syndrome) Expected: 03/12/2025, Expires: 03/12/2026 [facility] Comment on above: Expected: 03/12/2025 , Expires: 03/12/2026 Start: 03-12-2025 End: 03-12-2025 Patient encounter procedure 03/12/2025 9:10 AM EDT Office Visit [facility]O [address] [place] [id number] Maynor Bronson DO [address] [place] [address] Arrived [facility] Comment on above: Arrived Start: 04-01-2024 Influenza vaccination [facility] Different ial [facility] - Blood CBC and differential Lab Routine Missed menses Irregular menses PCOS (polycystic ovarian syndrome) Ordered: 03/12/2025 [facility] Comment on above: Ordered: 03/12/2025 Cytology Cervical or vaginal smear or scraping study Pap Smear Pathology and Cytology Routine Well woman exam with routine gynecological exam Ordered: 06/12/2024 [facility] Work Phone: Comment on above: Ordered: 06/12/2024 DHEA-sulfate DHEA-sulfate Lab Routine Missed menses Irregular menses PCOS (polycystic ovarian syndrome) Ordered: 03/12/2025 [facility] Comment on above: Ordered: 03/12/2025 Follicle stimulating hormone Follicle stimulating hormone Lab Routine Missed menses Irregular menses PCOS (polycystic ovarian syndrome) Ordered: 03/12/2025 [facility] Comment on above: Ordered: 03/12/2025 hCG, quantitative, hCG, quantitative, Lab Routine Missed menses Irregular menses PCOS (polycystic ovarian syndrome) Ordered: 03/12/2025 [facility] Work Phone: Comment on above: Ordered: 03/12/2025 Hemoglobin A1c/Hemoglobin.total in Blood Hemoglobin A1c Lab Routine Missed menses Irregular menses Ordered: 03/12/2025 [facility] Comment on above: Ordered: 03/12/2025 Luteinizing hormone Luteinizing hormone Lab Routine Missed menses Irregular menses PCOS (polycystic ovarian syndrome) Ordered: 03/12/2025 [facility] Comment on above: Ordered: 03/12/2025 Prolactin Prolactin Lab Ro utine Missed menses Irregular menses Ordered: 03/12/2025 [facility] Comment on above: Ordered: 03/12/2025 Thyrotropin [Units/volume] in Serum or Plasma TSH Lab Routine Missed menses Irregular menses PCOS (polycystic ovarian syndrome) Ordered: 03/12/2025 [facility] Comment on above: Ordered: 03/12/2025 Thyroxine (T4) free [Mass/volume] in Serum or Plasma T4, free Lab Routine Missed menses Irregular menses PCOS (polycystic ovarian syndrome) Ordered: 03/12/2025 [facility] Comment on above: Ordered: 03/12/2025 Immunizations Immunization Date Immunization Notes Care Provider Grace mark 08-15-2023 influenza virus vacc ine, unspecified formulation Maynor Bronson DO Work Phone: [facility] Payers Date Payer Category Payer [facility] [id number] 2024 Unknown [id number] 2021 [facility] HMO (unspecified) [employer] [id number] 1997 Unknown [id number] [id number] 1997 Unknown [id number] 9.2.593 1997 Unknown [id number] 9.2.727 1997 Unknown [id number] 9.2.727 1997 Unknown [id number] [id number] 9.2.727 1997 Unknown [id number] 9.2.72 1997 Unknown [id number] 9.2.727 1997 Unknown [id number] [id number] 9.2.727 1997 Unknown [id number] [id number] 9.2.72 1997 Unknown [id number] [id number] 9.2.72 1997 Unknown [id number] [id number] 9.2.1259 1997 Unknown [id number] [id number] 9.2.9 1997 Unknown [id number] 9.2.1259 1959 Private Health Insurance [id number] Unknown Social History Date Type Detail Facility Start: 05-27-2023 Tobacco smoking stat [facility] Never smoked tobacco [facility] Start: 05-27-2023 Tobacco use and exposure Smokeless t obacco non-user [facility] Start: 06-12-2024 Alcoholic beverage intake Life time non-drinker (finding) [facility] Start: 06-12-2024 History of Social function [facility] Start: 06-12-2024 Tobacco use panel [facility] Start: 1995 Sex assigned at Female [facility] Start: 03-07-2023 Gender identity Identifies as female gender (finding) [facility] History of Present illness Narrative 03-12-2025 Lona Junior LPN - 03/12/2025 9:10 AM EDT Note Date & Type Note Facility 03-12-2025 History of Presen t illness Narrative Reason for Appointment: Patient ID: Chikis Mejia is a 29 y.o. female who presents [...] nursing note reviewed. Exam conducted with a a and p technician present. Vitals: Estimated body mass index is 37.74 kg/m as calculated from the following: Height as [...] conceived by then, we will perform HSG. Patient has voiced understanding and will call our office [...] four months unless needed sooner. Documented by Lona Junior LPN on behalf of: Maynor Bronson DO documented in this encounter [facility] History of Present illness Narrative 06-12-2024 Lona Junior LPN - 06/12/2024 11:30 AM EST Note Date & Type Note Facility 06-12-2024 History of Presen t illness Narrative Reason for Appointment: Patient ID: Chikis Mejia is a 28 y.o. female who presents for Well Women Visit Patient presents today for Annual Exam. MEDICATIONS Current Outpatient Medications Medication Instructions Levonorgestrel (Mirena, 52 MG,) 20 MCG/DAY intrauterine device as directed Intrauterine Wellbutrin XL 150 mg ALLERGIES No Known Allergies PROBLEMS Active Ambulatory Problems Diagnosis Date Noted No Active Ambulatory Problems Resolved Ambulatory Problems Diagnosis Date Noted No Resolved Ambulatory Problems No Additional Past Medical History HISTORY PAST MEDICAL HISTORY SOCIAL HISTORY History reviewed. No pertinent past medical history. Social History Tobacco Use Smoking status: Never [...] Constitutional: Appearance: Normal appearance. She is well-developed. Genitourinary: Vulva normal. Breasts: Breasts are soft. Right: Normal. Left: Normal. Cardiovascular: Rate and Rhythm: Normal rate and [...] nursing note reviewed. Exam conducted with a a and p technician present. Vitals: Estimated body mass index is 34.83 kg/m as calculated from the following: Height as of 06/09/23: 5' 6 . Weight as of this encounter: 215 lb 12.8 oz. BP: 120/82 No LMP recorded. ASSESSMENT & PLAN ICD-10-CM 1. Well woman exam with routine gynecological exam Z01.419 Pap Smear Annual Exam: Patient presents today for an annual exam. Patient states she is doing well and has no complaints. Pap was obtained without difficulty. IUD Removal: Patient presents today for removal of IUD. Written consent was obtained and patient was placed in dorsal lithotomy position with feet in stirrups. A sterile speculum was inserted into the vagina and the cervix was visualized. The IUD strings were grasped gently with forceps and the IUD was removed in its entirety without difficulty. The IUD was shown to the patient then properly discarded. Follow Up: Patient is to return to the office for annual exam unless needed otherwise No orders of the defined types were placed in this encounter. Follow Up: Patient is to return in one year for annual unless needed otherwise. Documented by Lona Junior LPN on behalf of: Maynor Bronson DO documented in this encounter [facility] Clinical Note 06-12-2024 Note Date & Type Note Facility 06-12-2024 Note Patient Education Nutrition BMI for Adults Body mass index (BMI) is a number found using a person's weight and height. BMI can help tell how much of a person's weight is made up of fat. BMI does not measure body fat directly. It is used instead of tests that directly measure body fat, which can be difficult and expensive. What are BMI measurements used for? BMI is useful to: ??? Find out if your weight puts you at higher risk for medical problems. ??? Help recommend changes, such as in diet and exercise. This can help you reach a healthy weight. BMI screening can be done again to see if these changes are working. How is BMI calculated? Your height and weight are measured. The BMI is found from those numbers. This can be done with U.S. or metric measurements. Note that charts and online BMI calculators are available to help you find your BMI quickly and easily without doing these calculations. To calculate your BMI in U.S. measurements: 1. Measure your weight in pounds (lb). 2. Multiply the number of pounds by 703. ??? So, for an adult who weighs 150 lb, multiply that number by 703: 150 x 703, which equals 105,450. 3. Measure your height in inches. Then multiply that number by itself to get a measurement called inches squared. ??? So, for an adult who is 70 inches tall, the inches squared measurement is 70 inches x 70 inches, which equals 4,900 inches squared. 4. Divide the total from step 2 (number of lb x 703) by the total from step 3 (inches squared): 105,450 ? 4,900 = 21.5. This is your BMI. To calculate your BMI in metric measurements: 1. Measure your weight in kilograms (kg). ??? For this example, the weight is 70 kg. 2. Measure your height in meters (m). Then multiply that number by itself to get a measurement called meters squared. ??? So, for an adult who is 1.75 m tall, the meters squared measurement is 1.75 m x 1.75 m, which equals 3.1 meters squared. 3. Divide the number of kilograms (your weight) by the meters squared number. In this example: 70 ? 3.1 = 22.6. This is your BMI. What do the results mean? BMI charts are used to see if you are underweight, normal weight, overweight, or obese. The following guidelines will be used: ??? Underweight: BMI less than 18.5. ??? Normal weight: BMI between 18.5 and 24.9. ??? Overweight: BMI between 25 and 29.9. ??? Obese: BMI of 30 or above. BMI is a tool and cannot diagnose a condition. Talk with your health care provider about what your BMI means for you. Keep these notes in mind: ??? Weight includes fat and muscle. Someone with a muscular build, such as an athlete, may have a BMI that is higher than 24.9. In cases like these, BMI is not a correct measure of body fat. ??? If you have a BMI of 25 or higher, your provider may need to do more testing to find out if excess body fat is the cause. ??? BMI is measured the same way for males and females. Females usually have more body fat than males of the same height and weight. Where to find more information For more information about BMI, including tools to quickly find your BMI, go to: ??? Centers for Disease Control and Prevention: cdc.gov ??? [place] Heart Association: heart.org ??? National Heart, Lung, and Blood [place]: nhlbi.nih.gov This information is not intended to replace advice given to you by your health care provider. Make sure you discuss any questions you have with your health care provider. Document Revised: 04/07/2023 Document Reviewed: 03/31/2023 Elsevier Patient Education ? 2023 [employer] [facility] Evaluation note Note Date & Type Note Facility Evaluation note Diagnosis Well woman exam with routine gynecological exam Routine gynecological examination documented in this encounter [facility] Evaluation note Note Date & Type Note Facility Evaluation note Diagnosis Missed menses Irregular menses Irregular menstrual cycle PCOS (polycystic ovarian syndrome) Polycystic ovaries documented in this encounter [facility] Summary Purpose Family History No Family History Records FoundNo Family History Records FoundNo Family History Records FoundNo Family History Records Found Advance Directives No Advanced Directives Records FoundNo Advanced Directives Records FoundNo Advanced Directives Records FoundNo Advanced Directives Records Found Additional Source Comments INFORMATION SOURCE (unrecogn ized section and content) DATE CREATED AUTHOR 11/09/2018 [facility] DATE CREATED AUTHOR AUTHOR'S ORGANIZ ATION 06/11/2022 [facility] DATE CREATED AUTHOR AUTHOR'S ORGANIZ ATION 12/13/2024 [facility] DATE CREATED AUTHOR AUTHOR'S ORGANIZ ATION 03/23/2025 [facility] EPIC Care Teams (unrecognized sec tion and content) Electrical Systems Engineer Relationship Specialty Start Date End Date Fiordaliza Chairez MD [address] [place] [address] PCP - General Family Medicine 06/09/23 Electrical Systems Engineer Relationship Specialty Start Date End Date Fiordaliza Chairez MD [address] [place] [address] PCP - General Family Medicine 06/09/23 Electrical Systems Engineer Relationship Specialty Start Date End Date Fiordaliza Chairez MD [address] [place] [address] PCP - General Family Medicine 06/09/23 Electrical Systems Engineer Relationship Specialty Start Date End Date Fiordaliza Chairez MD [address] [place] [address] PCP - General Family Medicine 06/09/23 Electrical Systems Engineer Relationship Specialty Start Date End Date Fioradliza Chairez MD [address] [place], [place] [address] [address] PCP - General Family Medicine 06/09/23 Electrical Systems Engineer Relationship Specialty Start Date End Date Fiordaliza Chairez MD [address] [facility] [place] [address] PCP - General Family Medicine 06/09/23 Electrical Systems Engineer Relationship Specialty Start Date End Date Fiordaliza Chairez MD [address] [place] [address] PCP - General Family Medicine 06/09/23 Reason for Visit (unrecogniz ed section and content) Reason Comments Well Women Visit Reason Comments Menstrual Problem FOR RECORDS PERTAINING TO PATIENTS WHO ARE [...] BE BASED ON THE PRIMARY CLINICAL RECORDS. [facility]. provides no warranty or guarantee of the accuracy or completeness of information in this document.
[2025-03-27 11:10] LABS: Alanine Aminotransferase 61 U/L (14-59); Albumin Globulin Ratio 1.1; Albumin Level 4.2 g/dL (3.4-5.0); Alkaline Phosphatase 64 U/L (46-116); Anion Gap 13.3; Aspartate Amino Transferase 37 U/L (15-37); Blood Urea Nitrogen 5.0 mg/dL (7.0-18.0); Calcium 9.2 mg/dL (8.5-10.1); Carbon Dioxide 25.5 mmol/L (21.0-32.0); Chloride 104 mmol/L (98-107); Cholesterol 152 mg/dL (<=200); Estimated GFR (African America >60 (>=60 mL/min/1.73m^2); Estimated GFR (Non-African Ame >60 (>=60 mL/min/1.73m^2); Globulin 3.8 g/dL; Glucose 110 mg/dL (74-106); HDL Cholesterol 52 mg/dL (40-60); Potassium 4.8 mmol/L (3.5-5.1); Sodium 138 mmol/L (136-145); Total Protein 8.0 g/dL (6.4-8.2); Triglycerides 87 mg/dL (<=150); VLDL CHOLESTEROL 17.4 mg/dL
== END 2025-03-27 10:40 | disposition home or self-care (01) ==
LOC: LAB 10:39
PROVIDERS: PCP Nurse Practitioner Family; Visit Provider Nurse Practitioner Family
DX: Z13.220 Encounter for screening for lipoid disorders (principal); E66.812 Obesity, class 2; Z68.37 Body mass index [BMI] 37.0-37.9, adult
CPT/HCPCS: 36415; 80053; 80061

== ENCOUNTER 2025-04-27 11:19 | Outpatient (OUT) | payer BC, SELFPAY ==
--- OUTSIDE RECORDS SUMMARY | 2025-04-19 08:44 | XMS_ITS ---
Author Name Auto Generated Organization OHIP Care Team Providers Care Hogshead Stripper Name Role Phone MAYNOR BRONSON Attending Unavailable MAYNOR BRONSON Referring Unavailable MAYNOR BRONSON Attending Unavailable Nikita Kingston Attending Unavailable Nikita Kingston Attending Unavailable Nikita Kingston Attending Unavailable Nikita Kingston Attending Unavailable Nikita Kingston Attending Unavailable PROBLEMS No Problem Records Found PROCEDURES No Procedure Records Found RESULTS US OB TRANSVAGINAL Observed: 04/11/2025 9:54 AM Status: F Source: [facility] EPIC Order Comment: US OB TRANSVA GINAL Patient's last menstrual period was 12/13/2024 (exact date). FINDINGS: A single intrauterine gestational sac is present. No subchorionic hemorrhage. A single pole is present. Normal heart rate at 130 beats per minute. Yolk sac also is seen. Current sonographic age is 6 weeks and 5 days based on the crown-rump length measurement of 8 mm. Based on this age, current estimated date of delivery is November 30, 2025. No pelvic fluid or adnexal mass present. Cervix is 3.5 cm, closed. IMPRESSION: Findings consistent with a live intrauterine gestation, current sonographic age of 6 weeks and 5 days resulting in an estimated date of delivery of November 30, 2025 TRANSCRIBED BY: ELECTRONICALLY SIGNED BY: Roger Davila MD US PELVIC COMPLETE W/ TV Observed: 03/19 10:45 AM Status: F Source: [facility] EPIC Order Comment: US PELVIS-TRA NSVAG IF INDICATED Patient's last menstrual period was 12/13/2024 (exact date). EXAM: US PELVIC COMPLETE W/ TV HISTORY: [...] PHD at 21-Mar-2025 08:05:10 AM [facility] FAMILY MEDICINE OFFICE/CLINI C NOTE Observed: 12/11/2024 9:00 AM Status: F Source: [facility] Family Medicine Office/Clini c Note Chief Complaint 1m follow up Difficulty [...] level of consciousness appropriate for age, CN II- XII intact, motor strength equal & normal bilaterally, speech normal Abdomen: Soft, Non-tender, Non-distended, + Bowel sounds Assessment/Plan 1. 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 Anxiety (F41.9: Anxiety disorder, unspecified) - Well controlled. 3. GERD without esophagitis (K21.9: Gastro-esophageal reflux disease without esophagitis) - Continue standard management. 4. Concentration deficit (R41.840: Attention and concentration deficit) - Adjust medication use strategy to improve focus. - Avoid distractions after taking medication. - Maintain current dosage in view of weight progress. Ordered: Drug Screen POC 78149 HCG, Urine POC 63525 5. BMI 38.0-38.9,adult (Z68.38: Body mass index [BMI] 38.0-38.9, adult) - Continue monitoring weight loss. 6. Obesity (BMI 30-39.9) (E66.9: Obesity, unspecified) - Loosing weight with Vyvanse 7. Nonsmoker (Z78.9: Other specified health status) - Please continue to not smoke. 8. Irregular menstruation, unspecified (N92.6) - Upreg neg - Precaution with stimulant. Ordered: Drug Screen POC 96895 HCG, Urine POC 24031 Orders: lisdexamfetamine, 30 mg, 1 cap(s), Oral, qAM, 90 cap(s), Refill(s) 0, [employer] 165.2, cm, 12/11/24 9:08:00 EDT, Height/Length Dosing, [...] Tobacco Use:. Household tobacco concerns: No. Yes, 12/11/2024 Family History Alcoholism: Grandparent. Depression: Mother. Stroke: [...] Lab Results Ambulatory Point of Care Results Cocaine Result: Negative (12/11/24 09:32:00) Amphetamines Result: Positive (12/11/24 09:32:00) Barbiturates Result: Negative (12/11/24 09:32:00) MDMA Result: Negative (12/11/24 09:32:00) Methadone Result: Negative (12/11/24 09:32:00) Opiates Result: Negative (12/11/24 09:32:00) Oxycodone Result: Negative (12/11/24 09:32:00) Phencyclidine (PCP) Result: Negative (12/11/24 09:32:00) Tricyclic Antidepressants Result: Negative (12/11/24 09:32:00) Benzodiazepines Quant: Negative (12/11/24 09:32:00) HCG, Urine: Negative (12/11/24 09:32:00) THC Result POC: Negative (12/11/24 09:32:00) Result Comment: Electronical ly Signed By: Nikita Kingston MD\.br\Date and Time Signed: 12/11/24 09:43 EDT AMBULATORY VISIT SUMMARY Observed: 12/03 11:40 AM Status: F Source: [facility] Ambulatory Visit Summary CHIKIS MEJIA :1995 Visit Date:12/03/2024 Ambulatory Visit Instructions Your Diagnosis BMI 38.0-38.9,adult Obesity (BMI 30-39.9) Nonsmoker Your Care Team Attending Physician - Nikita Kingston MD Primary Care Physician - Nikita Kingston MD This Is Your Medications List lisdexamfetamine (Vyvanse 30 mg oral capsule) Procedures Performed section. Discharge Vitals Temperature (Tympanic) 36.9 ???C Heart Rate (Peripheral) 74 Respiratory Rate 18 Blood Pressure 142/88 Height 165.2 cm Height 65 in Weight 104.2 kg Weight 229.721 lb BMI 38.18 What to do next Scheduled Follow-Up Appointments Tuesday. 2024 9:00 AM EDT With: Thee SONG, Nikita Solitario Where: [facility] Medicine [address] [address]- Medications What How Much When Instructions Unchanged [...] you for choosing us for your care. FAMILY MEDICINE OFFICE/CLINI C NOTE Observed: 12/03/2024 11:40 AM Status: F Source: [facility] Office/Clini c Note Chief Complaint Acute Visit Painful oral [...] Recorded influenza virus vaccine, inactivated 05/16/2018 Recorded Result Comment: Electronical ly Signed By: Thee SONG, Nikita Andrew.br\Date and Time Signed: 12/03/24 13:33 EDT FAMILY MEDICINE OFFICE/CLINI C NOTE Observed: 11/08/2024 1:00 PM Status: F Source: [facility] Medicine Office/Clini c Note Chief Complaint Discuss Weight Loss HPI [...] to help. 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 Patient is starting to exercise. Discussed with [...] is trying to change that with a casting operator helper. 3. Concentration deficit (R41.840: Attention and concentration [...] cap(s), Oral, qAM, 30 cap(s), Refill(s) 0, [facility], 165.2, cm, 11/08/24 13:20:00 EDT, Height/Length [...] Recorded influenza virus vaccine, inactivated 05/16/2018 Recorded Result Comment: Electronical ly Signed By: Nikita Kingston MD\.br\Date and Time Signed: 11/08/24 14:20 EDT AMBULATORY VISIT SUMMARY Observed: 11/08 1:00 PM Status: F Source: [facility] Ambulatory Visit Summary CHIKIS MEJIA :1995 Visit Date:11/08/2024 Ambulatory Visit Instructions Your Diagnosis Anxiety Excessive dietary caloric intake Concentration deficit GERD without esophagitis BMI 39.0-39.9,adult Obesity (BMI 30-39.9) Nonsmoker Your Care Team Attending Physician - Nikita Kingston MD Primary Care Physician - Nikita Kingston MD This Is Your Medications List buPROPion (Wellbutrin XL 150 mg/24 hours Tab-ER) Procedures Performed section. Discharge Vitals Temperature (Tympanic) 36.8 ???C Heart Rate (Peripheral) 86 Respiratory Rate 18 Blood Pressure 122/76 Height 165.2 cm Height 65 in Weight 106.8 kg Weight 235.453 lb BMI 39.13 What to do next Scheduled Follow-Up Appointments Tuesday. 2024 9:15 AM EDT With: Nikita Kingston MD Where: [place] [id number]- Medications What How Much When Instructions Unchanged [...] you for choosing us for your care. FAMILY MEDICINE OFFICE/CLINI C NOTE Observed: 06/12/2024 9:45 AM Status: F Source: [facility] Medicine Office/Clini c Note Chief Complaint Weight Management HPI Staff [...] q24hr, # 90 tab(s), Refills(s) 1, Pharmacy: [facility], 165.2, cm, 06/12/24 9:18:00 EST, Height/Length [...] Recorded influenza virus vaccine, inactivated 05/16/2018 Recorded Result Comment: Electronical ly Signed By: Thee SONG, Nikita Andrew.br\Date and Time Signed: 06/12/24 09:45 EST PATIENT EDUCATION Observed: 06/12/2024 9:44 AM Status: F Source: [facility] Patient Education Nutrition BMI for Adults Body [...] for Disease Control and Prevention: cdc.gov ??? [place] Heart Association: heart.org ??? National Heart, Lung, and Blood [place]: nhlbi.nih.gov This information is not intended to replace advice given to you by your health care provider. Make sure you discuss any questions you have with your health care provider. Document Revised: 04/07/2023 Document Reviewed: 03/31/2023 Elsevier Patient Education ? 2023 [employer] AMBULATORY VISIT SUMMARY Observed: 06/12 9:42 AM Status: F Source: [facility] Ambulatory Visit Summary JACKIE CHIKIS Spencer :1995 Visit Date:06/12/2024 Ambulatory Visit Instructions Your Diagnosis Excessive dietary caloric intake Concentration deficit BMI 35.0-35.9,adult Nonsmoker GERD without esophagitis Your Care Team Attending Physician - Nikita Kingston MD Primary Care Physician - Nikita Kingston MD This Is Your Medications List buPROPion [...] Appointments Tuesday. 2024 9:15 AM EDT With: Nikita Kingston MD Where: [address] [address]- Medications What How Much When Instructions Unchanged buPROPion (Wellbutrin XL 150 mg/ 24 hours Tab-ER) 1 Tablets By Mouth Every 24 hours Pickup at [facility] Pharmacy Information [facility]: [address] [place], [place] [id number] [phone] What How Much When Comments Stop Taking [...] you for choosing us for your care. ALLERGIES DATE TYPE / CODE NAME / CODE REACTION SEVERITY SOURCE /[id number](SNOME D CT) No Known Medication Allergies [facility] ENCOUNTERS ADMIT/DISCHARGE ACCOUNT NUMBER ADMITTING ENCOUNTER CLASS LOCATION SOURCE 04/19/2025/ 5 [id number] Ambulatory Building:[facility] 04/11/2025/ 5 [id number] Ambulatory Building:[facility] 03/19/2025/08/19/202 5 [id number] Ambulatory Building:[facility] EPIC 03/14/2025 [id number] [place] [facility] [place] [place] 03/12/2025/ 5 [id number] Ambulatory Building:[facility] EPIC 12/11/2024/ 5 [id number] Ambulatory [facility] [place] : [id number] [facility] 12/03/2024/ 5 [id number] Ambulatory [facility] [place] : [id number] [address] [facility] 11/08/2024/ 5 [id number] Ambulatory FT [facility] [place] : CD:[id number] [address] [facility] 06/12/2024/ 4 [id number] Ambulatory [facility] 06/12/2024/ 4 [id number] Ambulatory [facility] [place] : CD:[id number] [address] [facility] PAYERS ENCOUNTER GUARANTOR PAYER SUBSCRIBER SOURCE 04/19/2025 CHIKIS VELAZQUEZ: [address] [place] [address]Cem: () (WP) Primary Insurance:[employer] licy Number: [id number] ctive Date:2024-08-01 CHIKIS VELAZQUEZ: [id number] [place] [address] [facility] PSY[facility] 04/11/2025 CHIKIS MITCHELLB: [address] [place] [address]Ilv: () (WP) Primary Insurance:[employer]age[employer]SPo licy Number: [id number] ctive Date:2024-08-01 CHIKIS MEJIADOB: [id number] [place] [address] [facility] EPIC 03/19/2025 CHIKIS MEJIADOB: [address] [place] [address]Vei: (HP) (WP) Primary Insurance:BCBSPo licy Number: [id number] ctive Date:2024-08-01 CHIKIS MEJIADOB: [id number] [place] [address] [facility] EPIC 03/14/2025 CHIKIS MEJIADOB: [facility] 185Tel: ~~(26 (HP) Primary Insurance:[place] Policy Number: [id number] ctive Date:1799-07-31 [address], [place] [address]PK: [facility]/12/2025 CHIKIS MEJIADOB: [address] [place] [address]Xqx: (HP) (WP) Primary Insurance:BCBSPo licy Number: [id number] ctive Date:2024-08-01 CHIKIS MEJIADOB: [id number] [place] [address] [facility] PS[facility] 12/11/2024 CHIKIS MEJIADOB: [facility] 185Tel: ~~(26 (HP) Primary Insurance:[place] Policy Number: [id number] ctive Date:1799-07-31 [address] [address]LY: CHIKIS M [facility] 12/03/2024 CHIKIS MEJIADOB: [address] 185Tel: ~~(26 (HP) Primary Insurance:[place] Policy Number: [id number] ctive Date:1799-07-31 [address], [place] [address]YX: CHIKISMATILDA MARIE [facility] 11/08/2024 CHIKIS MITCHELLB: [address] 185Tel: ~~(26 (HP) Primary Insurance:[place] Policy Number: [id number] ctive Date:1799-07-31 [address], [place] [address]BF: CHIKISMATILDA MARIE [facility] 06/12/2024 CHIKIS PAULAB: [address] [place] [address]Vdm: (HP) (WP) Primary Insurance:[employer] olicy Number: [id number] lucia Date:2021-08-01 emliio Name:[address] [place]UE[place] [address]QF: CHIKIS MITCHELLB: [id number] [place] [address] [facility] 06/12/2024 CHIKIS MITCHELLB: [facility] 185Tel: ~~(26 (HP) Primary Insurance:[employer] olicy Number: [id number] lucia Date:2023-01-06 [address] [place] [address]CB: [facility]DA [facility]JIAL[facility]
[2025-04-27 12:19] LABS: Hematocrit 36.9 % (36.0-48.0); Hemoglobin 13.3 g/dL (12.0-16.0); Immature Granulocytes Abs Auto 0.03 10^3/uL (0.00-0.03); Immature Granulocytes Pct Auto 0.3 % (0.0-0.5); Lymphocytes Absolute Auto 2.0 10^3/uL (1.2-3.8); Mean Corpuscular HGB Conc 36.0 g/dL (29.9-35.2); Mean Corpuscular Hemoglobin 31.0 pg (26.7-34.0); Mean Corpuscular Volume 86.0 fL (81.0-99.0); Platelet Count 294 10^3/uL (150-450); Red Blood Count 4.29 10^6/uL (4.20-5.40); White Blood Count 9.5 10^3/uL (4.0-11.0)
[2025-04-27 12:21] LABS: Cannabinoid Screen Urine NEGATIVE (NEGATIVE); Methamphetamines Screen Urine NEGATIVE (NEGATIVE); Tricyclic Antidepressant Urine NEGATIVE (NEGATIVE)
[2025-04-28 10:08] LABS: Rubella Antibodies, IgG <0.90 index (Immune >0.99)
[2025-04-28 15:07] LABS: Rapid Plasma Reagin, Quant Non Reactive titer (NonRea<1:1)
== END 2025-04-27 11:20 | disposition home or self-care (01) ==
PROVIDERS: PCP Nurse Practitioner Family; Visit Provider Obstetrics & Gynecology
DX: Z34.01 Encounter for supervision of normal first pregnancy, first trimester (principal); N92.6 Irregular menstruation, unspecified
CPT/HCPCS: 36415; 80307; 83036; 85025; 86592; 86762; 86803; 86850; 86900; 86901; 87086; 87340; 87389

== ENCOUNTER 2025-06-18 11:36 | Outpatient (OUT) | payer BC, SELFPAY ==
--- OUTSIDE RECORDS SUMMARY | 2025-06-18 11:41 | XMS_ITS | CCD ---
Author Organization [facility] Care Team Providers Care Manager Advanced Name Role Phone PHYSICIAN, DEFAULT Admitting Unavailable PHYSICIAN, DEFAULT Attending Unavailable FIORDALIZA CHAIREZ Primary Care Unavailable AUDIE, DR MCGUIRE Attending Unavailable AUDIE, DR MCGUIRE Consulting Unavailable DR MAYNOR BRONSON Admitting Unavailable Fiordaliza Chairez MD Primary Care Provider [phone] Fiordaliza Chairez Attending Unavailable Fiordaliza Chairez Attending Unavailable Fiordaliza Chairez Attending Unavailable Fiordaliza Chairez Attending Unavailable Fiordaliza Chairez Attending Unavailable Fiordaliza Chairez Attending Unavailable Fiordaliza Chairez Attending Unavailable Fiordaliza Chairez Attending Unavailable MAYNOR BRONSON Attending Unavailable MAYNOR BRONSON Attending Unavailable MAYNOR BRONSON Referring Unavailable MAYNOR BRONSON Attending Unavailable Yassine James MD Primary Care Provider [phone] Allergies Allergy ClassificationReported Allergen(s)Allergy TypeDate of OnsetReaction(s) Facility (1 source)No Known Medication Allergies; Translations: [No Known Medication Allergies]Propensity to adverse reactions (disorder)[facility] Repository Medications Current Medications MedicationDrug Class(es)DatesSig (Normalized)Sig (Original)lisdexamfetamine dimesylate 30 mg oral capsule (6 sources)Central Nervous System Stimulant End: 43-95-8313guou 1 capsule by mouth in the morninglisdexamfetamine (Vyvanse) 30 MG capsule Take 30 mg by mouth in the morning. 04/19/2025 Discontinued (Other)Lysine (6 sources) End: 23-96-6995CKMTEM PO Take by mouth 04/19/2025 Discontinued (Other)LYSINE PO Take by mouth ActivemedroxyPROGESTERone acetate 10 mg oral tablet (6 sources)ProgestinStart: 03-12-2025 End: 94-59-6957sfbf 1 tablet by mouth once daily, then take 1 tablet by mouth once dailymedroxyPROGESTERone (Provera) 10 MG tablet Indications: Irregular menses Take 1 tablet (10 mg) by mouth Daily Take 1 tablet by mouth daily 10 tablet 3 03/13/2025 04/19/2025 Discontinued (Other) vit,calc76/iron/folic (PNV 29-1 ORAL) (1 source)take 1 tablet by mouth once dailyprenatal vit,calc76/iron/folic (PNV 29-1 ORAL) Take 1 tablet by mouth daily. ActivePrenatal Vit-Fe Fumarate-FA ( VITAMIN PO) (10 sources) Vit-Fe Fumarate-FA ( VITAMIN PO) Take by mouth Activesertraline 25 mg oral tablet (1 source)Serotonin Reuptake Inhibitortake 1 tablet by mouth once daily sertraline (ZOLOFT) 25 mg tablet Take 25 mg by mouth daily. Active Completed/Discontinued Medications MedicationDrug Class(es)DatesSig (Normalized)Sig (Original)24 hr buPROPion hydrochloride 150 mg extended release oral tablet (6 sources)AminoketoneStart: 04-16-2024 End: 15-44-6363nuix 1 tablet by mouth every twenty-four hoursWellbutrin XL 150 MG 24 hr tablet Take 150 mg by mouth 04/16/2024 03/12/2025 Discontinued (Therapy completed)levonorgestrel 0.850561 mg/hr intrauterine system (6 sources)Progestin, Progestin-containing Intrauterine Device End: 44-40-3372Kuyotpoulymdnr (Mirena, 52 MG,) 20 MCG/DAY intrauterine device as directed Intrauterine 03/12/2025 Discontinued (Therapy completed)phentermine hydrochloride 37.5 mg oral capsule (3 sources)Sympathomimetic Amine Anorectic End: 54-94-5568njzd 1 capsule by mouth in the morningphentermine 37.5 MG capsule Take 37.5 mg by mouth in the morning. 06/12/2024 Discontinued (Other) Problems Active Problems Problem ClassificationProblemDateDocumented DateEpisodic/ChronicImmunizations and screening for infectious disease (1 source)Encounter for screening for human papillomavirus (HPV); Translations: [ENC SCREENING HUMAN PAPILLOMAVIRUS]Onset: 09-13-8338DieyqhrjSaiuazrgi disorders (10 sources)Missed period; Translations: [Irregular menstruation, unspecified] Onset: 530032-36-7714LgmxahrPxztq endocrine disorders (7 sources)Polycystic ovary syndrome; Translations: [Polycystic ovarian syndrome]Onset: 836594-04-2637MohntkjAujpn screening for suspected conditions (not mental disorders or infectious disease) (11 sources)Encounter for screening for malignant neoplasm of cervix; Translations: [Increased human chorionic gonadotropin level]Onset: 06-03-2022 EpisodicResidual codes; unclassified (2 sources)Gestation period, 12 weeks; Translations: [12 weeks gestation of ]37-17-1620Qmtaftxy Past or Other Problems Problem ClassificationProblemDateDocumented DateEpisodic/ChronicOther complications of (1 source)Benign gestational thrombocytopenia; Translations: [Other diseases of the blood and blood-forming organs and certain disorders involving the immune mechanism complicating , third trimester]Onset: EpisodicOther complications of (1 source) with isoimmunization; Translations: [Maternal care for other isoimmunization, third trimester, not applicable or unspecified]Onset: 978579-10-7759JwtbdphwShqhq complications of (1 source)RhD negative; Translations: [Other specified related conditions, unspecified trimester]Onset: 055907-24-2741OhjuvadwKhvhs and delivery including normal (9 sources)Urine test positive; Translations: [Encounter for test, result positive]Onset: 703335-52-8323QnzlaohhPzqbendr codes; unclassified (1 source)FH: Blood disorder; Translations: [Family history of diseases of the blood and blood-forming organsand certain disorders involving the immune mechanism]Onset: 323857-90-5020QlhzompzHkoyfjza codes; unclassified (1 source)Gestation period, 37 weeks; Translations: [37 weeks gestation of ]Onset: 535554-35-4955Rzbqahjx Results Test NameValueInterpretationReference RangeFacilityUrinalysis macro (dipstick) panel (U)on 25-50-1782Grooahenw, UANegativeNegative - 4(70) +++ mg/dLNOMS HealthcareBlood, UANegativeNegative - 50 Ramses/mcLNOMS HealthcareClarity, UAClear NOMS HealthcareColor, UAYellowNOMS HealthcareGlucose, UANegativeNegative - 2000(110) ++++ mg/dLNOMS HealthcareInterpretation and review of laboratory resultsAbnormalNOMS HealthcareKetones, UANegativeNegative - 160(16) ++++ mg/dL NOMS HealthcareLeukocytes, UA2+Negative - 500+++ Chacho/mcLNOMS HealthcareNitrite, UANegativeNegative - PositiveNOMS HealthcarepH, UA6.55 - 9NOMS Healthcare Protein, UANegativeNegative - 2000(20) ++++ mg/dLNOMS HealthcareSpec Grav, UA 1.0101 - 1.03NONE HealthcareUrobilinogen, UA2.00.2 - 12 mg/dLNONE HealthcareNONE HealthcareFetal Free Cell DNA (Non-[facility] Send Out)Ordered By: Lakshmi Brooks on 81-32-8017XptQkzyug Health SystemBOX TESTon 90-64-7807IYC TEST SENT OUTUNITY BOX [facility] HospitalNshrvhcuwfUXK5RPHMRDDPD XgobijxuvjOAN81/NONE HealthcareCLINISYNCNOMS HealthcareHCG ( test) Ql (U)on 01-89-3994Nbsfvphdevziut and review of laboratory resultsAbnormSelect Specialty Hospital - JohnstownPreg Test, UrPositiveNegativeChildren's Mercy Hospital HealthcareUrinalysis macro (dipstick) panel (U)on 04-19-2025 Bilirubin, UANegativeNegative - 4(70) +++ mg/dLNOMS HealthcareBlood, UAPositive Negative - 50 Ramses/mcLNOMS HealthcareClarity, UAClearNOMS HealthcareColor, UA YellowNOMS HealthcareGlucose, UANegativeNegative - 1999(110) ++++ mg/dLNOMS HealthcareInterpretation and review of laboratory resultsAbnormalVALLEY VIEW [facility]ICAL [facility]ENTER Healthcare Ketones, UANegativeNegative - 160(16) ++++ mg/dLNOMS HealthcareLeukocytes, UA PositiveNegative - 500+++ Chacho/mcLNOMS HealthcareNitrite, UANegativeNegative - PositiveNOMS HealthcarepH, UA65 - 9NOMS HealthcareProtein, UAPositiveNegative - 1999(20) ++++ mg/dLNONE HealthcareSpec Grav, UA1.021 - 1.03NOWashington County Memorial Hospital Urobilinogen, UA1.00.2 - 12 mg/dLDorothea Dix HospitalUS OB TRANSVAGINALon 61-19-1252VW OB TRANSVAGINALFINDINGS: A single intrauterine gestational sac is present. [...] 30, 2025 TRANSCRIBED BY: ELECTRONICALLY SIGNED BY: Kayden Colby AvailableComment on above:Order Comment: OB TRANSVAGINAL Patient's last menstrual period was 12/13/2024 (exact date).TB PREG QUANT HCGon 98-97-3790OGC ZELBJCQRPYBJ4905sWV/mLNOMS HealthcareComment on above:5-50 0.2-1 WEEK 50-500 1-2 WEEKS 100-5,000 2-3 WEEKS 500-10,000 3-4 WEEKS 1,000-50,000 4-5 WEEKS 10,000-100,000 5-6 WEEKS 15,000-200,000 6-8 WEEKS 10,000-100,000 2-3 MONTHS [facility]Per[facility] PREG QUANT HCGon 61-56-7705VDH BQFARWDCSWPP248fDF/mL NOMS HealthcareComment on above:5-50 0.2-1 WEEK 50-500 1-2 WEEKS 100-5,000 2-3 WEEKS 500-10,000 3-4 WEEKS 1,000-50,000 4-5 WEEKS 10,000-100,000 5-6 WEEKS 15,000-200,000 6-8 WEEKS 10,000-100,000 2-3 MONTHS CLINISYBig South Fork Medical CenterUS PELVIC COMPLETE W/ TVon 73-65-9225PU PELVIC COMPLETE W/ TVEXAM: US PELVIC COMPLETE W/ TV HISTORY: PCOS, AUB, no menstrual cycle since 11/2024. COMPARISON: None available. TECHNIQUE: Two-dimensional transabdominal grayscale ultrasound imaging of the pelvis was performed.Color flow Doppler imaging of the ovaries was [...] small follicles. The ovarian volume is 7 mL.There is normal color Doppler flow. LEFT OVARY 3.7 x 2.1 x 3.5 cm The left ovary demonstrates a normal echotexture with small follicles. The ovarian volume is 15 mL.There is normal color Doppler flow. There is a collapsing follicle visualized. Trace fluid is present within the cul-de-sac. IMPRESSION: 1. Mildly heterogeneous uterine echotexture. 2. Bilateral small ovarian follicles. Ovarian volumes are within normal limits. 3. Normal color Doppler flow within the bilateral ovaries. Interpreted by: Electronically signed by TALI PARRISH II, MD, PHD at 21-Mar-2025 08:05:10 AM [facility] TeleradiologyNormalNot AvailableComment on above:Order Comment: US PELVIS-TRANSVAG IF INDICATED Patient's last menstrual period was 12/13/2024 (exact date).ALL CBC WITH AUTO DIFFon 81-79-8996MNNBRINLH ABSOLUTE VVBO5SALP HealthcareBasophils/100 WBC (Bld) 0.2 %0.2 - 2.0 %NOMS HealthcareEosinophils/100 WBC (Bld)0.8 %Low0.9 - 7.0 %[facility] District HospitalErythrocyte distribution width (RBC) [Ratio]12.6 %11.0 - 15.0 %NOMCarondelet HealthHematocrit (Bld) [Volume fraction]42.1 %36.0 - 48.0 %[facility] Hemoglobin (Bld) [Mass/Vol]14.6 g/dL12.0 - 16.0 g/dLNOMS HealthcareIMMATURE GRANULOCYTES ABS AUTO0.04HighNONE HealthcareImmature granulocytes/100 WBC (Bld) 0.4 %0.0 - 0.5 %[facility] HealthcareInterpretation and review of laboratory results AbnormalNOWashington County Memorial HospitalLYMPHOCYTES ABSOLUTE AUTO1.9NOMS Healthcare Lymphocytes/100 WBC (Bld)17.8 %Low20.5 - 60.0 %[facility] Memorial HospitalH (RBC) [Entitic mass]29.8 pg26.7 - 34.0 pgNOUniversity of Missouri Children's HospitalHC (RBC) [Mass/Vol]34.7 g/dL29.9 - 35.2 g/dLNOUniversity of Missouri Children's HospitalV (RBC) [Entitic vol]85.9 fL81.0 - 99.0 fLHermann Area District HospitalMONOCYTES ABSOLUTE AUTO0.6NONE HealthcareMonocytes/100 WBC (Bld)5.5 % 1.7 - 12.0 %NOM HealthcareNEUTROPHILS ABSOLUTE FYZG2EqhzTGMX Healthcare Neutrophils/100 WBC (Bld)75.3 %High43.0 - 75.0 %[facility] HealthcarePlatelet mean volume (Bld) [Entitic vol]10 fL9.5 - 13.5 fLNOWashington County Memorial HospitalTBH EO #0.1NOMS HealthcareTBH TAU175IVRM [facility] Washington TownshipTBH RBC4.9NOMS [facility] Washington TownshipTB WBC10.6NOWashington County Memorial HospitalCLINISYNCNOMS [facility] Washington TownshipHCG ( test) Ql (U)on 03-12-2025 Interpretation and review of laboratory resultsNormalNOWashington County Memorial HospitalPreg Test, UrNegativeNegativeFormerly [facility] Medicine Office/Clinic Noteon 01-08-7649Yvyuul Medicine Office/Clinic NoteFabelchertown state school for the feeble-minded Medicine Office/Clinic Note Chief Complaint 1m follow [...] normal peripheral perfusion, heart rate looks great, bloodpressure looks good Respiratory: Lungs clear to auscultation, [...] - In remission Ordered: Drug Screen POC 55020 HCG, Urine POC 71842 2. Anxiety (F41.9: Anxiety disorder, unspecified) - Well controlled. 3. GERD without esophagitis (K21.9: Gastro-esophageal reflux disease without esophagitis) - Continue standard management. 4. Concentration deficit (R41.840: Attention and concentration deficit) - Adjust medication use strategy to improve focus. - Avoid distractions after taking medication. - Maintain current dosage in view of weight progress. Ordered: Drug Screen POC 50365 HCG, Urine POC 92838 5. BMI 38.0-38.9,adult (Z68.38: Body mass index [BMI] 38.0-38.9, adult) - Continue monitoring weight loss. 6. Obesity (BMI 30-39.9) (E66.9: Obesity, unspecified) - Loosing weight with Vyvanse 7. Nonsmoker (Z78.9: Other specified health status) - Please continue to not smoke. 8. Irregular menstruation, unspecified (N92.6) - Upreg neg - Precaution with stimulant. Ordered: Drug Screen POC 66005 HCG, Urine POC 48358 Orders: lisdexamfetamine, 30 mg, 1 cap(s), Oral, qAM, 90 cap(s), Refill(s) 0, [employer] 165.2, cm, 12/11/24 9:08:00 EDT, Height/Length Dosing, [...] importance of timing and context when taking hermedication for concentration enhancement, advising her to avoid [...] to her focus based on the aforementioned str ategies. We addressed other ongoing health issues and [...] times per month., (more content not included)... [facility] Memorial HospitalComment on above:Result Comment: Electronically Signed By: Thee SONG, Fiordaliza Andrew.br\Date and Time Signed: 12/11/24 09:43 EDT Ambulatory Visit Summaryon 05-20-1151Tkgigdglnu Visit SummaryAmbulatory Visit Summary CHIKIS MEJIA :1995 Visit Date:12/03/2024 [...] AM EDT With: Fiordaliza Chairez MD Where: [address] Medications What How Much When Instructions Unchanged [...] you for choosing us for your care. [facility] Medicine Office/Clinic Noteon 83-40-2556Prhukt Medicine Office/Clinic NoteFabelchertown state school for the feeble-minded Medicine Office/Clinic Note Chief Complaint Acute Visit [...] oral ulcer, likely an aphthous ulcer, and providedreassurance regarding the absence of infection. I discussed [...] 07/01/2019 Recorded influenza virus vaccine, inactivated 05/16/2018 RecordedCommunity Memorial HospitalComment on above:Result Comment: Electronically Signed By: Fiordaliza Chairez MD\.br\Date and Time Signed: 12/03/24 13:33 EDTAmbulatory Visit Summaryon 26-02-0669Taqmytckir Visit SummaryAmbulatory Visit Summary CHIKIS MEJIA :1995 Visit Date:11/08/2024 [...] AM EDT With: Fiordaliza Chairez MD Where: [place] [phone]- Medications What How Much When Instructions Unchanged [...] you for choosing us for your care. [facility] Medicine Office/Clinic Noteon 35-33-3427Rdqdmr Medicine Office/Clinic NoteFabelchertown state school for the feeble-minded Medicine Office/Clinic Note Chief Complaint Discuss Weight [...] to help. 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 Patient is starting toexercise. Discussed with the patient how she struggles with eating breakfast and lunch but then will overeat at dinner. Discussed about that pattern being a binge eating pattern. Discussed how we coul d use Vyvanse to help with binge eating. [...] is trying to change that with a water attendant. 3. Concentration deficit (R41.840: Attention and concentration [...] cap(s), Oral, qAM, 30 cap(s), Refill(s) 0, [facility], 165.2, cm, 11/08/24 13:20:00 EDT, Height/Length [...] 07/01/2019 Recorded influenza virus vaccine, inactivated 05/16/2018 RecordedNoMercer County Community HospitalComment on above:Result Comment: Electronically Signed By: Thee SONG, Fiordaliza Isaacsbr\Date and Time Signed: 11/08/24 14:20 EDTIGP,APTIMA HPV,AGE GDLNon 83-06-8418LIF GDLN ACOG TESTINGNote.NOMS HealthcareComment on above:TESTS RESULT FLAG UNITS REF RANGE LAB Clinician Provided Cytology Information Source.............Cervix;Endocervix No. of containers..01 ThinPrep Vial Age Algo HAOG Sanjuana... -31 08 FLAG LEGEND: L-Low Normal,H-High Normal,LL-Alert Low,HH-Alert High <-Panic Low,>-Panic High,A-Abnormal,AA-Critical Abnormal Performed at: 01 =G [address] [place] [place] [address] Kelli Bowman MD, IGP, RFX APTIMA HPV ASCUNote.[facility] HealthcareComment on above:TESTS RESULT FLAG UNITS REF RANGE LAB DIAGNOSIS: 02 NEGATIVE FOR INTRAEPITHELIAL LESION OR MALIGNANCY. Specimen adequacy: 02 Satisfactory for evaluation. Endocervical and/or squamous metaplastic cells (endocervical component) are present. Performed by: 02 Kendra Delgado Tableau Analyst ([facility]) . 02 Note: Note 02 The [...] High,A-Abnormal,AA-Critical Abnormal Performed at: [address] [facility] [address] [address] Kelli Bowman MD, Performed at: =G - [facility] [address] [id number] Broommaker: Kelli Bowman MD, Phone: [phone] Performed at: [facility] Lab[address] [place], [place] [id number] Broommaker: Kelli Bowman MD, Phone: [phone] BRUSH-SPATULA CERVIX ENDOCERVIX [facility] HealthcareAmbulatory Visit Summaryon 59-10-1474Lyfobikdcq Visit SummaryAmbulatory Visit Summary CHIKIS MEJIA :1995 Visit Date:06/12/2024 [...] AM EDT With: Fiordaliza Chairez MD Where: [address] [address]- Medications What How Much When Instructions Unchanged buPROPion (Wellbutrin XL 150 mg/ 24 hours Tab-ER) 1 Tablets By Mouth Every 24 hours Pickup at [facility] Pharmacy Information [facility]: [address], [place] [id number] [phone] 1964 What How Much When Comments Stop Taking [...] you for choosing us for your care. [facility] Medicine Office/Clinic Noteon 21-85-3196Wquoji Medicine Office/Clinic NoteFabelchertown state school for the feeble-minded Medicine Office/Clinic Note Chief Complaint Weight Management [...] q24hr, # 90 tab(s), Refills(s) 1, Pharmacy: [facility], 165.2, cm, 06/12/24 9:18:00 EST, Height/Length [...] 07/01/2019 Recorded influenza virus vaccine, inactivated 05/16/2018 RecordedNoMercer County Community HospitalComment on above:Result Comment: Electronically Signed By: Fiordaliza Chairez MD\.br\Date and Time Signed: 06/12/24 09:45 ESTAmbulatory Visit Summaryon 68-73-1707Ytdcznpzgl Visit SummaryAmbulatory Visit Summary CHIKIS MEJIA :1995 Visit Date:04/16/2024 [...] AM EDT With: Fiordaliza Chairez MD Where: [place] [phone]- Medications What How Much When Instructions Unchanged [...] you for choosing us for your care. [facility] Medicine Office/Clinic Noteon 11-63-3417Fiyhfm Medicine Office/Clinic NoteFabelchertown state school for the feeble-minded Medicine Office/Clinic Note HPI Staff Chikis is [...] to monitor and patient will follow-up in 6weeks. 2. Concentration deficit (R41.840: Attention and concentration deficit) Will consider Vyvanse to help. 3. Anxiety (F41.9: Anxiety disorder, unspecified) Patient is not using her medication. Encouraged the patient to start taking her medication. 4. GERD without esophagitis (K21.9: Gastro-esophageal reflux disease without esophagitis) Will add Pepcid. Orders: buPROPion, 150 mg = 1 tab(s), Oral, q24hr, # 90 tab(s), Refills(s) 0, Pharmacy: [facility], 165.2, cm, 04/16/24 14:53:00 EDT, Height/Length Dosing, 93.3, kg, 04/16/24 14:53:00 EDT, Weight Dosing famotidine, 20 mg = 1 tab(s), Oral, BID, # 180 tab(s), Refills(s) 0, Pharmacy: [facility], 165.2, cm, 04/16/24 14:53:00 EDT, [...] 07/01/2019 Recorded influenza virus vaccine, inactivated 05/16/2018 RecordedCommunity Memorial HospitalComment on above:Result Comment: Electronically Signed By: Thee SONG, Fiordaliza Jose\Date and Time Signed: 04/16/24 15:08 EDTRetail - Clinical Note on 90-34-6029Ltrbgt - Clinical Note [id number]#1.00TIFFNormalFisher [facility] Medicine Office/Clinic Noteon 67-60-9028Hygyfo Medicine Office/Clinic NoteHPI Staff Chikis is a 27 year old [...] 07/01/2019 Recorded influenza virus vaccine, inactivated 05/16/2018 RecordedCommunity Memorial HospitalComment on above:Result Comment: Electronically Signed By: Thee SONG, Fiordaliza Andrew.br\Date and Time Signed: 01/16/24 15:52 EDTPatient Educationon 60-01-9472Olzwiuz EducationNutrition BMI for Adults What is BMI? Body mass index (BMI) is a number that is calculated from a person's weight and height. BMI can help estimate how much of a person's weight is composed of fat. BMI does not measure body fat directly.Rather, it is an alternative to procedures that [...] your height. Both height and weight are measured,and the BMI is calculated from those numbers. This can be done either in [place] ([place] or metric measurements. Note that charts and online BMI calculators are available to help you find your BMI quickly and easily without having to do these calculations yourself. To calculate your BMI in [place] ([place] measurements: 1. Measure your weight in [...] meters squared number. In this example: 70 ?3.1 = 22.6. This is your BMI. What [...] for Disease Control and Prevention: www.cdc.gov ? [place] Heart [employer]: www.heart.org ? National Heart, Lung, and Blood [place]: www.nhlbi.nih.gov Summary ? Body mass index (BMI) is a number that is calculated from a person's weight and height. ? BMI may help estimate how much of a person's weight is composed of fat. BMI can help identify those who may be at higher risk for certain medical problems. ? BMI can be measured using Jamaican measurements or metric measurements. ? BMI charts are used to identify whether you are underweight, normal weight, overweight, or obese. This information is not intended to replace advice given to you by your health care provider. Make sure you discuss any questions you have with your health care provider. Document Revised: 04/09/2020 Document Reviewed: 02/15/2020 [employer] Patient Education ? 2022 [employer].[facility] [employer] - Clinical Noteon 12-56-9085[employer] - Clinical Note [id number]#1.00TIFFMetroHealth [facility] Medicine Office/Clinic Noteon 64-93-5409Uuavvg Medicine Office/Clinic NoteHPI Staff Chikis is a 27 year old [...] 07/01/2019 Recorded influenza virus vaccine, inactivated 05/16/2018 RecordedCommunity Memorial HospitalComment on above:Result Comment: Electronically Signed By: Thee SONG, Fiordaliza Andrew.br\Date and Time Signed: 12/19/23 17:24 EDTPAP ACOG PANEL 2: 21 to 29on 06-10-2022..NormalSumma Health Akron CampusComment on above:Result Comment: Performed at: BAPerformed By: #### [id number] #### [facility] [address] [place] [address] Dr. Liz PaulaDIAGNOSIS:CommentNoKettering HealthComment on above: Result Comment: NEGATIVE FOR INTRAEPITHELIAL LESION OR MALIGNANCY. Performed at: BAPerformed By: #### [id number] #### [facility] [address] [place] [address] Dr. Liz PaulaMethodology:CommentUC Health on above: Result Comment: This liquid based ThinPrep(R) pap test was screened with the use of an image guided system. Performed at: Performed By: #### [id number] #### [facility] [address] [place] [address] Dr. Liz PaulaNote:CommentUC Health on above:Result Comment: The Pap smear is a screening test designed to aid in the detection of premalignant and malignant conditions of the uterine cervix. It is not a diagnostic procedure and should not be used as the sole means of detecting cervical cancer. Both false-positive and false-negative reports do occur. . Performed at: [facility] Hospitalformed By: #### [id number] #### [place] [address] Dr. Liz PaulaPerformed by:CommentUC Health on above: Result Comment: Darrius Espitia, Tableau Analyst (ASCP) Performed at: Bannerformed By: #### [id number] #### [place] [address] Dr. Liz PaulaReflex Criteria:CommentUC Health on above:Result Comment: The HPV DNA reflex criteria were not met with this specimen result therefore, no HPV testing was performed. . Performed at: BAPerformed By: #### [id number] #### [facility] [address] [place] [address] Dr. Liz PaulaSpecimen adequacy:CommentUC Health on above:Result Comment: Satisfactory for evaluation. Endocervical and/or squamous metaplastic cells (endocervical component) are present. Performed at: BAPerformed By: #### [id number] #### [facility] [address] [place] [address] Dr. Liz Grayson Gdln ACOG Ktstutl15-78UakaphUfjKettering Health Greene Memorialment on above:Performed By: #### [id number] #### [facility] [address] [address] [address] Liz Paula Vital Signs Date TimeVital SignValuePerforming KmayoymekGjutleyc73-64-0307 11:24-0400Body mass index (BMI) [Ratio]36.86 kg/r2Fniyy Audie DO Work Phone: [phone] [place], [place] [address]Pylehvkmwl65-22-3882 11:24-0400Body qxyvlw215.6 kgCorey Audie DO Work Phone: [phone] [place], [place] 6774310-21-2025 11:24-0400Diastolic blood hubemfsz24 mm[Hg]Maynor Audie DO Work Phone: [phone] [place], [place] 6774310-21-2025 11:24-0400Systolic blood kodioawo309 mm[Hg]Maynor Audie DO Work Phone: [phone] [place], [place] 6774309-19-2025 09:32-0400Body mass index (BMI) [Ratio]37.51 kg/c7PgiyzWood[facility]09-19-2025 09:32-0400Body weight 105.42 kgWoodhull [facility] Center08-12-2025 09:33-0400Body mass index (BMI) [Ratio]37.74 kg/f2Knczu Audie DO Work Phone: [phone])[address] [place], [place] 6774308-12-2025 09:33-0400Body .05 kgCorey Audie DO Work Phone: [phone] [place], [place] 6774308-12-2025 09:33-0400Diastolic blood jrbnfakf78 mm[Hg]Maynor Audie DO Work Phone: [phone] [place] [address]-12-2025 09:33-0400Systolic blood srxziqyh751 mm[Hg]Maynor Audie DO Work Phone: [phone] [place], [place] 6[address]4311-12-2024 11:15-0500Body mass index (BMI) [Ratio]34.83 kg/t6Binfk Audie DO Work Phone: [phone] [place], [place] 6774311-12-2024 11:15-0500Body gabhrd07.89 kgCorey Audie DO Work Phone: NO Czcubxpppp24-02-5410 11:15-0500Diastolic blood mm[Hg]Maynor Audie DO Work Phone: no Dooeeeiegn85-62-1197 11:15-0500Systolic blood mkyhqyvk725 mm[Hg]Maynor Audie DO Work Phone: [facility] Encounters Encounter DateEncounter TypeCare ProviderFacilityStart: 05-30-2025 End: 90-06-0567Qhwrs Kvng Jean MD Work Phone: [phone]-Sbxto Medicine at [facility] Start: 05-21-2025 End: 31-63-6911Ujvoxs flowsheetCorey Audie DO Work Phone: noMS Quan OBGYNStart: 05-21-2025 End: 84-16-4500Bcypdj flowsheetCorey Audie DO Work Phone: [facility] OBGYNStart: 05-21-2025 End: 56-78-2669cdumjuoyheEEHQN FAZIONot AvailableStart: 05-21-2025 End: 37-00-0670Lhktdijc flow sheetCorey Audie DO Work Phone: noMS Manito OBGYNComment on above:First trimester screening ([facility]); 12 weeks gestation of ([facility])Start: 04-27-2025 End: 98-77-1064Xxnmzdcat Result EncounterPatricia MOSES Work Phone: noMS External Department UnsolicitedStart: 04-27-2025 End: 53-35-4693Pqfkbxtqd Result EncounterPatricia MOSES Work Phone: noms External Department UnsolicitedStart: 04-19-2025 End: 63-92-9294Vpnowx outpatient visit 5 minutesFazio Nurse Noms Bcp ObNOMS Quan OBGYNComment on above:GA: 1h1bSxvos: 04-19-2025 End: 90-56-9160bcbfqankzwHLUXB FAZIONot AvailableStart: 04-11-2025 End: 91-75-8189jcyagvhhjqIJTNP FAZIONot AvailableStart: 03-27-2025 End: 89-50-3048Sszlgxarf Result EncounterCorey Audie DO Work Phone: noms External Department UnsolicitedStart: 03-27-2025 End: 70-35-6337Amyeutufw Result EncounterCorey Audie DO Work Phone: noms External Department UnsolicitedStart: 03-25-2025 End: 87-39-5769Huoqbbuyi Result EncounterCorey Audie DO Work Phone: noms External Department UnsolicitedStart: 03-25-2025 End: 15-27-6708Ycbbvfyna Result EncounterCorey Audie DO Work Phone: noms External Department UnsolicitedStart: 03-19-2025 End: 61-81-5517qybcblqygxZAAQX FAZIONot AvailableStart: 25-81-8108hmtgnjdukn Fiordaliza ChairezFacility:FT FM BellevueStart: 03-12-2025 End: 30-30-6595Kxnfgz flowsheetCorey Audie DO Work Phone: NONW Manito OBGYNStart: 03-12-2025 End: 62-95-8318Umjson flowsheetCorey Audie DO Work Phone: NONR Manito OBGYNStart: 03-12-2025 End: 55-14-4174Rukfyeosm Result EncounterCorey Audie DO Work Phone: noms External Department UnsolicitedStart: 03-12-2025 End: 29-28-4926Xpifyb outpatient visit 15 minutesCorey Audie DO Work Phone: NOXY Manito OBGYNComment on above:Missed menses; Irregular menses; PCOS (polycystic ovarian syndrome)Start: 03-12-2025 End: 04-40-3898tiupaalhnfRUOKS FAZIONot AvailableStart: 12-11-2024 End: 13-52-3087rajwzhqyriQsryob E. RossFacility:FT FM BellevueStart: 12-03-2024 End: 11-55-2191uahmtujhpfWfirbu E. RossFacility:FT FM BellevueStart: 11-08-2024 End: 43-28-2936vvilnkcubbUzpokx E. RossFacility:FT FM BellevueStart: 06-12-2024 End: 78-37-9520Xpjpmp flowsheetCorey Audie DO Work Phone: [facility] BCP OBStart: 06-12-2024 End: 18-92-9074Zrbvet flowsheetCorey Audie DO Work Phone: noms BCP OBStart: 06-12-2024 End: 91-59-6674Jddsxojnd Result EncounterCorey Audie DO Work Phone: NOOC External Department UnsolicitedStart: 06-12-2024 End: 46-98-9463Ozqjvcp encounter procedureCorey Audie DO Work Phone: [facility] Work Phone: Start: 06-12-2024 End: 97-78-3265Rniivyxo preventive med est patient 18-39 yrsCorey Audie DO Work Phone: [facility] OBComment on above:Well woman exam with routine gynecological examStart: 06-12-2024 End: 06-31-2233ggilawcnvhDIZFQ FAZIONot AvailableStart: 06-12-2024 End: 50-37-5920lqnjcvnvjhRgzaau E. RossFacility:FT FM BellevueStart: 04-16-2024 End: 38-57-9180lptkfccbpyQygaax E. RossFacility:FT FM BellevueStart: 01-16-2024 End: 63-38-3141owthgikcizBdmdcq E. RossFacility:FT FM BellevueStart: 12-19-2023 End: 39-98-9766ahmzpaeeqeCutdqv E. RossFacility:FT AMBERLY BellevueStart: 06-03-2022 End: 65-86-8480dkcnwzzwwyDRLXOJ ELI ROSSFacility:W9Uluro: 11-08-2018 End: 44-25-6602Mzeoezz encounter procedureDEFAULT PHYSICIANFacility:[facility] Procedures DateProcedureProcedure DetailPerforming ClinicianStart: 96-11-2131Udpkk dip stick/tablet rgnt non-auto w/o micrscpCorey Audie DO Work Phone: Start: 32-92-4191TNRHM FREE CELL DNA (NON-[place] SEND OUT)Not In System Ref ProvStart: 03-56-2674RET TESTAmy Loco MOSES Work Phone: Start: 04-19-2025 End: 74-83-4509Bzuyp dip stick/tablet rgnt non-auto w/o micrscpCorey Audie DO Work Phone: Start: 54-95-0085FMD PREG QUANT HCGCorey Audie DO Work Phone: Start: 53-77-7826WFU PREG QUANT HCGCorey Audie DO Work Phone: Start: 20-04-4004OKO CBC WITH AUTO DIFFCorey Audie DO Work Phone: Start: 53-48-8025Azodo test visual color cmprsn methsCorey Audie DO Work Phone: Start: 57-73-6016JCB,APTIMA HPV,AGE GDLNCorey Audie DO Work Phone: Plan of Treatment DateCare ActivityDetailAuthorStart: 37-50-4708YQO ( or age 60+ yrs) (1 - 1-dose 75+ series)RSV ( or age 60+ yrs) (1 - 1-dose 75+ series) [facility] SystemStart: 07-16-2025 End: 39-31-7549Leihgza encounter procedureProGood Samaritan Hospital US ImagingStart: 07-15-2025 End: 52-04-4338Osoytwf encounter dqdwvxqxe54/15/2025 9:20 AM EST Procedure Visit NOMEve AREVALO [address] [place] [address] Maynor Bronson, DO [address] [place] [address] NOMEve [place] OBGYNStart: 06-18-2025 End: 75-41-7717Pkzexso encounter procedureNOMS BCP OBStart: 05-21-2025 End: 56-52-0095Blpqunp encounter eymmuyall64/21/2025 11:20 AM EDT Routine NOMEve AREVALO [address] [place] [address] Maynor Bronson, DO [address] [place] [address] OSCAR [place] OBGYNStart: 04-19-2025 End: 64-97-0985NZU/RhABO/Rh Lab Routine Missed menses , unspecified gestational age ([facility]) Expected: 04/19/2025 (Approximate), Expires: 04/19/2026NONE HealthcareComment on above:Expected: 04/19/2025 (Approximate), Expires: 04/19/2026Start: 04-19-2025 End: 62-62-0047Uhtxo type and Indirect antibody screen panel - BloodType and screen Lab Routine Missed menses , unspecified gestational age ([facility]) Expected: 04/19/2025 (Approximate), Expires: 04/19/2026[facility] Work Phone: comment on above:Expected: 04/19/2025 (Approximate), Expires: 04/19/2026Start: 04-19-2025 End: 92-18-1289Kgloq of abuse panel - Urine by Screen methodRapid drug screen, urine Lab Routine , unspecified gestational age ([facility]) Encounter for supervision of normal first in first trimester ([facility]) Expected: 04/19/2025 (Approximate), Expires: 04/19/2026NONE HealthcareComment on above: Expected: 04/19/2025 (Approximate), Expires: 04/19/2026Start: 45-11-0848AYJXY-19 Vaccine ( season)COVID-19 Vaccine ()[facility] SystemStart: 83-23-3858Zvnglfhnp vaccinationNONE HealthcareStart: 03-19-2025 End: 79-39-2258Hilqpjnnlnrx / ancillary services hqbulikxrf52/19/2025 11:00 AM ED[place] [address] [facility] [place] OBGYNStart: 03-12-2025 End: 57-69-2508Isfskubotcpvq hormone (AMH)Antimullerian hormone (AMH) Lab Routine Missed menses Irregular menses Expected: 03/12/2025 (Approximate), Expires: 03/12/2026NONE HealthcareComment on above:Expected: 03/12/2025 (Approximate), Expires: 03/12/2026Start: 03-12-2025 End: 29-08-7363HMEHCPIK Lab Routine Missed menses Irregular menses PCOS (polycystic ovarian syndrome) Expected: 03/12/2025 (Approximate), Expires: 03/12/2026[facility] HealthcareComment on above:Expected: 03/12/2025 (Approximate), Expires: 03/12/2026Start: 03-12-2025 End: 66-87-3475SF PelvisUS Pelvis w/ TV Imaging Routine Missed menses Irregular menses PCOS (polycystic ovarian syndrome) Expected: 03/12/2025, Expires: 03/12/2026[facility] HealthcareComment on above:Expected: 03/12/2025, Expires: 03/12/2026Start: 03-12-2025 End: 46-16-9074Wwonpcb encounter agduaowmk07/12/2025 9:10 AM EDT Office Visit [place] [address] Maynor Bronson, [address] [place] [address] [facility] Quan OBGYNComment on above:ArrivedStart: 80-02-4710Cjpcqtidi vaccinationInfluenza Vaccine (#1)[facility] HealthcareStart: 98-68-5407Fhliwkrjn for malignant neoplasm of cervixPap Smear [facility] SystemStart: 83-74-0001QFhK,Tdap and Td Vaccines (1 - Tdap) DTaP,Tdap and Td Vaccines (1 - Tdap)[facility] SystemStart: 01-01-2016 Adult BMI ScreeningAdult BMI ScreeningLakeHealth Beachwood Medical Center SystemStart: 2009 Depression ScreeningDepression ScreeningLakeHealth [facility]wood Medical Center SystemStart: 2009 Tobacco ScreeningTobacco ScreeningThe Surgical Hospital at SouthwoodsBacteria identified in Urine by CultureUrine culture Microbiology Routine Missed menses Ordered: 04/19/2025[facility] HealthcareComment on above:Ordered: 04/19/2025BC W Auto Differential panel - BloodCBC and differential Lab Routine Missed menses Irregular menses PCOS (polycystic ovarian syndrome) Ordered: 03/12/2025[facility] HealthcareComment on above:Ordered: 03/12/2025BC W Auto Differential panel - BloodCBC and differential Lab Routine Missed menses , unspecified gestational age ([facility]) Ordered: 04/19/2025[facility] HealthcareComment on above: Ordered: 04/19/2025ytology Cervical or vaginal smear or scraping studyPap Smear Pathology and Cytology Routine Well woman exam with routine gynecological exam Ordered: 06/12/2024[facility] Healthcare Work Phone: comment on above:Ordered: 06/12/2024HEA-sulfateDHEA- sulfate Lab Routine Missed menses Irregular menses PCOS (polycystic ovarian syndrome) Ordered:03/12/2025[facility] HealthcareComment on above:Ordered: 03/12/2025 Follicle stimulating hormoneFollicle stimulating hormone Lab Routine Missed menses Irregular menses PCOS (polycystic ovarian syndrome) Ordered: 03/12/2025 [facility] HealthcareComment on above:Ordered: 03/12/2025hCG, quantitative, hCG, quantitative, Lab Routine Missed menses Irregular menses PCOS (polycystic ovarian syndrome) Ordered: 03/12/2025[facility] Healthcare Work Phone: comment on above:Ordered: 03/12/2025Hemoglobin A1c/Hemoglobin.total in BloodHemoglobin A1c Lab Routine Missed menses Irregular menses Ordered: 03/12/2025[facility] HealthcareComment on above:Ordered: 03/12/2025 Hemoglobin A1c/Hemoglobin.total in BloodHemoglobin A1c Lab Routine Missed menses , unspecified gestational age ([facility]) Ordered: 04/19/2025[facility] HealthcareComment on above:Ordered: 04/19/2025Hepatitis B virus surface Ag [Presence] in Serum or Plasma by ImmunoassayHepatitis B surface antigen Lab Routine Missed menses , unspecified gestational age ([facility]) Ordered: 04/19/2025[facility] HealthcareComment on above:Ordered: 04/19/2025Hepatitis C virus Ab [Presence] in Serum or Plasma by ImmunoassayHepatitis C antibody Lab Routine Missed menses , unspecified gestational age ([facility]) Ordered: 04/19/2025[facility] HealthcareComment on above:Ordered: 04/19/2025HIV-1/HIV-2 antigen/antibody combination immunoassayHIV-1 and HIV-2 antibodies Lab Routine Missed menses , unspecified gestational age ([facility]) Ordered: 04/19/2025[facility] HealthcareComment on above:Ordered: 04/19/2025Luteinizing hormone Luteinizing hormone Lab Routine Missed menses Irregular menses PCOS (polycystic ovarian syndrome) Ordered: 03/12/2025[facility] HealthcareComment on above:Ordered: 03/12/2025ProlactinProlactin Lab Routine Missed menses Irregular menses Ordered: 03/12/2025[facility] HealthcareComment on above:Ordered: 03/12/2025Reagin Ab [Presence] in Serum by RPRRPR Lab Routine Missed menses , unspecified gestational age ([facility]) Ordered: 04/19/2025[facility] HealthcareComment on above: Ordered: 04/19/2025Rubella antibody, IgGRubella antibody, IgG Lab Routine Missed menses , unspecified gestational age ([facility]) Ordered: 04/19/2025[facility] HealthcareComment on above:Ordered: 04/19/2025Thyrotropin [Units/volume] in Serum or PlasmaTSH Lab Routine Missed menses Irregular menses PCOS (polycystic ovarian syndrome) Ordered: 03/12/2025[facility] HealthcareComment on above:Ordered: 03/12/2025Thyroxine (T4) free [Mass/volume] in Serum or PlasmaT4, free Lab Routine Missed menses Irregular menses PCOS (polycystic ovarian syndrome) Ordered: 03/12/2025[facility] HealthcareComment on above:Ordered: 03/12/2025 Immunizations Immunization DateImmunizationNotesCare OmvplxxmDrwkltqh01-45-2530txqaqemua virus vaccine, unspecified formulationCorey Audie DO Work Phone: [facility] Healthcare Payers DatePayer CategoryPayerPolicy [id number] [id number] [facility] Managed Care - PPOANTHEM Member Subscriber Plan / Payer (Effective 2024- Present) Name: Chikis Mejia Relation to Subscriber: Self Name: Chikis Mejia ID: [id number] (NAIC) Type: Not on file Address: [address] [place] [id number] [id number] Care HMO (unspecified)AETNA [id number] Managed Care - [employer] .[id number] [id number] 2.1.646478.3.57[id number] 2.1.181686.3.57[id number] .1.445912.3.57[id number] 2.1.842945.3.57[id number] 2.1.759536.3.57[id number] 2.16.840.1.663040.3.579.2.76087-72-1248Wrwwbjq95370394 2.16.840.1.162492.3.579.[id number] 2.16.840.1.033388.3.579.2.15[id number] 2.16.840.1.189720.3.57[id number] 2.16.840.1.842180.3.57[id number] 2.16.840.1.392765.3.57[id number] 2.16840.1.417612.3.57[id number] 2.16.840.1.383420.3.579.2.784506-68-1871Lzjotjw19803231 2.16.840.1.495818.3.579.2.6[id number] 2.16.840.1.963005.3.57[id number] 2.16840.1.517566.3.579.2.999604-26-7941Isdjzwt Health [id number] Unknown Social History DateTypeDetailFacilityStart: 07-18-2018 End: 52-07-8721Tcolsem smoking status NHISNever smoked tobaccoNOMS Healthcare Start: 07-18-2018 End: 19-24-8654Jrjufjp use and exposureSmokeless tobacco non-userNOMS Healthcare Start: 06-12-2024 End: 43-87-1051Scmsojbjn beverage intakeLifetime non-drinker (finding)[facility] HealthcareStart: 09-11-2020 End: 71-19-2078Fsmatnt of Social functionNONE HealthcareStart: 09-11-2020 End: 11-99-8503Qdcwhuc use panelVALLEY VIEW MEDICAL [facility]ENTER HealthcareStart: 03-73-4420Aka assigned at birthFeBaldpate Hospital HealthcareStart: 16-62-7791Anoivo identityIdentifies as female gender (finding)[facility] HealthcareStart: 98-02-2246JggwwqmpsXLQC HealthcareStart: 57-30-2783RncKfdctlQDZE HealthcareHow often do you have a drink containing alcohol?NeverL[facility]Health [facility] SystemStart: 70-18-6700CewYpcibi (finding) [facility] SystemStart: 76-56-4451Frleoc orientationHeterosexual (finding) [facility] History of Present illness Narrative 05-21-2025 Note Date & YgsdFdzwEvlmndrm77-84-9638 History of Present illness Narrative* Lona Junior, COIN MACHINE COLLECTOR - 05/21/2025 11:20 AM EDT Reason for Appointment: Patient ID: Chikis Mejia is a 29 y.o. female who presents for Routine Visit Patient presents today for Return OB appointment. MEDICATIONS Current Outpatient Medications Medication Instructions Vit-Fe Fumarate-FA ( VITAMIN PO) Take by mouth ALLERGIES No Known Allergies PROBLEMS Active Ambulatory Problems Diagnosis Date Noted Positive urine test ([facility]) 03/27/2025 Elevated serum hCG 03/27/2025 Irregular menses 03/27/2025 PCOS (polycystic ovarian syndrome) 03/27/2025 Resolved Ambulatory Problems Diagnosis Date Noted No [...] nursing note reviewed. Exam conducted with a shrimp boat captain present. Vitals: Estimated body mass index is 36.86 kg/m as calculated from the following: Height as of 06/09/23: 5' 6 . Weight as of this encounter: 228 lb 6.4 oz. BP: 110/72 Patient's last menstrual period was 12/13/2024. Assessment/Plan ICD-10-CM 1. First trimester screening ([facility]) Z36.9 2. 12 weeks gestation of ([facility]) Z3A.12 POCT urinalysis dipstick manually resulted New OB: Patient presents today for 1st time obstetrics appointment with provider. Patient is currently 12w3d . Patients history has been reviewed in great detail including any potential risks. Patient stated she currently has no complaints. Expectations throughout regarding labs, ultrasounds, and appointments have been discussed with the patient in detail. It was reiterated that the patient is to drink 6-8 glasses of water a day, eat 6 small meals a day, do not consume raw or undercooked meat, and stay away from [facility]. Patient has been consulted regarding any further do's and don'tsof . Patient voiced understanding and all questions and concerns were answered. Pt has h/melissa positive antibody screen with G1- antibody screen negative this Orders Placed This Encounter Procedures POCT urinalysis dipstick manually resulted Follow Up: Patient is to return in 4 weeks for routine OB appointment. Documented by Lona Junior LPN on behalf of: Maynor Bronson DO documented in this encounterNONE Healthcare History of Present illness Narrative 04-19-2025 Note Date & VzudUsmyJadpqopg84-95-6199 History of Present illness Narrative* Ambika Rivero, COIN MACHINE COLLECTOR - 04/19/2025 9:00 AM EDT Reason for Appointment: Patient ID: Cihkis Mejia is a 29 y.o. female who presents for Amenorrhea Patient presents today for a Nurse OB Intake appointment. Patient is 7w6d with a Estimated Date of Delivery: 11/30/25 OB History Para Term AB Living 2 1 1 1 SAB IAB Ectopic Multiple Live Births 1 # Outcome Date GA Lbr [place]/2nd Weight Sex Type Anes PTL Lv 2 Current 1 Term 10/18/18 41w1d 9 lb 4.2 oz M CS-LTranv EPI N DEXTER Current Medications: has a current medication list which includes the following prescription(s): vit-fe fumarate-fa. Medical History: Active Ambulatory Problems Diagnosis Date Noted Positive urine test ([facility]) 03/27/2025 Elevated serum hCG 03/27/2025 Irregular menses 03/27/2025 PCOS (polycystic ovarian syndrome) 03/27/2025 Resolved Ambulatory Problems Diagnosis Date Noted No Resolved Ambulatory Problems No Additional Past Medical History No family history on file. Social History Tobacco Use Smoking status: Never Smokeless tobacco: Never Substance Use Topics Alcohol use: Never Drug use: Never Past Surgical History: Procedure Laterality Date SECTION, LOW TRANSVERSE No Known Allergies Vitals: Estimated body mass index is 37.51 kg/m as calculated from the following: Height as of 06/09/23: 5' 6 . Weight as of this encounter: 232 lb 6.4 oz. BP: Patient's last menstrual period was 12/13/2024. Assessment/Plan Diagnoses and all orders for this visit: Missed menses - Type and screen; Future - ABO/Rh; Future - CBC and differential - Hemoglobin A1c - RPR - Rubella antibody, IgG - Hepatitis B surface antigen - Hepatitis C antibody - HIV-1 and HIV-2 antibodies - Urine culture - POCT , urine manually resulted - POCT urinalysis dipstick manually resulted , unspecified gestational age ([facility]) - Type and screen; Future - ABO/Rh; Future - CBC and differential - Hemoglobin A1c - RPR - Rubella antibody, IgG - Hepatitis B surface antigen - Hepatitis C antibody - HIV-1 and HIV-2 antibodies - Rapid drug screen, urine; Future Encounter for supervision of normal first in first trimester ([facility]) - Rapid drug screen, urine; Future Nurse Note: OB Intake: Patient presents today for first OB visit. Patients history has been reviewed in great detail including any potential risks. Patient signed consent forms and patient desires testing in both trimesters. Patient currently has no complaints and has been advised to drink 6-8 glasses of water a day, eatno raw or undercooked meat, and stay away from [facility]. Patient has also been advised to not change litter boxes and eat 6 small meals a day. Patient has been consulted regarding the do's and don'ts ofpregnancy. Patient was given labs and all questions and concerns were answered. Follow Up: Patient is to return in 4 weeks for routine OB appointment. Follow Up: Patient is to have labs drawn at directed and return to office for initial OB appointment with provider. Patient may call office as needed with any concerns or questions. Nurse Visit Completed by: Ambika Rivero LPN documented in this encounterNOMS Healthcare History of Present illness Narrative 03-12-2025 Note Date & ZjjhTbicPhyzqutd69-77-7688 History of Present illness Narrative* Lona Junior LPN - 03/12/2025 9:10 AM EDT Reason for Appointment: Patient ID: Chikis Mejia [...] nursing note reviewed. Exam conducted with a shrimp boat captain present. Vitals: Estimated body mass index is [...] of: Maynor Bronson DO documented in this encounterNONE Healthcare History of Present illness Narrative 06-12-2024 Note Date & MdznCreiAhaxaogy35-88-0851 History of Present illness Narrative* Lona Junior LPN - 06/12/2024 11:30 AM EST Reason for Appointment: Patient ID: Chikis Mejia [...] nursing note reviewed. Exam conducted with a shrimp boat captain present. Vitals: Estimated body mass index is [...] of: Maynor Bronson DO [facility] in [facility] 06-12-2024 Note Date & QczgFctgAmrfbkvs18-92-8444 NotePatient Education Nutrition BMI for Adults Body mass [...] This can help you reach a healthy weight.BMI screening can be done again to see if these changes are working. How is BMI calculated? Your height and weight are measured. The BMI is found from those numbers. This can be done with [place]. or metric measurements. Note that charts and online BMI calculators are available to help you findyour BMI quickly and easily without doing these [...] measurement is 1.75 m x 1.75 m, whichequals 3.1 meters squared. 3. Divide the number of kilograms (your weight) by the meters squared number. In this example: 70 ?3.1 = 22.6. This is your BMI. What [...] for Disease Control and Prevention: cdc.gov ??? [place] [employer]: heart.org ??? National Heart, Lung, and Blood [place]: nhlbi.nih.gov This information is not intended to replace advice given to you by your health care provider. Make sure you discuss any questions you have with your health care provider. Document Revised: 04/07/2023 Document Reviewed: 03/31/2023 [employer] Patient Education ? 2023 [employer] Evaluation note Note Date & TypeNoteFacilityEvaluation note* Diagnosis Well woman exam with routine gynecological exam Routine gynecological examination documented in this encounter [facility] Evaluation note Note Date & TypeNoteFacilityEvaluation note* Diagnosis Missed menses Irregular menses Irregular menstrual cycle PCOS (polycystic ovarian syndrome) Polycystic ovaries documented in this encounter [facility] Evaluation note Note Date & TypeNoteFacilityEvaluation note* Diagnosis Missed menses , unspecified gestational age (HHS-HCC) Encounter for supervision of normal first in first trimester (HHS-HCC) documented in this encounter [facility] Evaluation note Note Date & TypeNoteFacilityEvaluation note* Diagnosis First trimester screening (HHS-HCC) Other specified screening 12 weeks gestation of (HHS-HCC) documented in this encounter [facility] Instructions Note Date & TypeNoteFacilityInstructionsNot on filedocumented in this encounter [facility] Summary Purpose Family History No Family History Records FoundNo Family History Records FoundNo Family History Records FoundNo Family History Records Found Advance Directives Date ActivatedDate InactivatedComments10/19/2018 6:04 AM10/20/2018 10:27 PM Additional Source Comments INFORMATION SOURCE (unrecogn ized section and content) DATE CREATED AUTHOR 11/09/2018 [facility] DATE CREATED AUTHOR AUTHOR'S ORGANIZ ATION 06/11/2022 [facility] DATE CREATED AUTHOR AUTHOR'S ORGANIZ ATION 12/13/2024 [facility] DATE CREATED AUTHOR AUTHOR'S ORGANIZ ATION 05/22/2025 [facility] [employer] Care Teams (unrecognized sec tion and content) Team MemberRelationshipSpecialtyStart DateEnd Date Fiordaliza Chairez MD [address] [place] [address] PCP - Generalmi Dojpbmol51/9/23Team MemberRelationshipSpecialtyStart DateEnd Date Fiordaliza Chairez MD [address] [place] [address] PCP - Generalmi Krasdslm83/9/23Team MemberRelationshipSpecialtyStart DateEnd Date Fiordaliza Chairez MD [address] [place] [address] PCP - Generalmi Dwccazsc68/9/23Team MemberRelationshipSpecialtyStart DateEnd Date Fiordaliza Chairez MD [address] [place] [address] PCP - GeneralFamily Rlfwoodf56/9/23Team MemberRelationshipSpecialtyStart DateEnd Date Fiordaliza Chairez MD [address] [place] [address] PCP - GeneralFamily Enowjlsd39/9/23Team MemberRelationshipSpecialtyStart DateEnd Date Fiordaliza Chairez MD [address] [place] [address] PCP - Generalmily Nqhykqtu87/9/23Team MemberRelationshipSpecialtyStart DateEnd Date Fiordaliza Chairez MD [address] [place] [address] PCP - Generalmily Zghvvzqj40/9/23Team MemberRelationshipSpecialtyStart DateEnd Date Fiordaliza Chairez MD [address] [place] [address] PCP - GeneralFamily Xgszsxws82/9/23Team MemberRelationshipSpecialtyStart DateEnd Date Fiordaliza Chairez MD [address] [place] [address] PCP - GeneralFamily Udohdlzk25/9/23Team MemberRelationshipSpecialtyStart DateEnd Date Fiordaliza Chairez MD [address] [place] [address] PCP - GeneralFamily Wizdlqul97/9/23Team MemberRelationshipSpecialtyStart DateEnd Date Yassine James MD [address] [place] [address] PCP - GeneralPediatrics3/ Reason for Visit (unrecogniz ed section and content) ReasonCommentsWell Women VisitReasonCommentsMenstrual ProblemReasonComments AmenorrheaReasonCommentsRoutine Visit FOR RECORDS PERTAINING TO PATIENTS WHO ARE [...] BE BASED ON THE PRIMARY CLINICAL RECORDS. [facility] [employer] provides no warranty or guarantee of the accuracy or completeness of information in this document.
== END 2025-06-18 11:37 | disposition home or self-care (01) ==
LOC: LAB 11:37
PROVIDERS: PCP Nurse Practitioner Family; Visit Provider Physician Assistant
DX: Z34.92 Encounter for supervision of normal pregnancy, unspecified, second trimester (principal); Z3A.16 16 weeks gestation of pregnancy
CPT/HCPCS: 36415; 82105

== ENCOUNTER 2025-06-18 19:53 | Outpatient (REF) | payer BC, SELFPAY ==
--- OUTSIDE RECORDS SUMMARY | 2025-06-18 19:55 | XMS_ITS | CCD ---
Author Organization [facility] Care Team Providers Care Service Vehicle Operator Name Role Phone PHYSICIAN, DEFAULT Admitting Unavailable PHYSICIAN, DEFAULT Attending Unavailable FIORDALIZA CHAIREZ Primary Care Unavailable AUDIE, DR MCGUIRE Attending Unavailable AUDIE, DR MCGUIRE Consulting Unavailable DR MAYNOR BRONSON Admitting Unavailable Fiordaliza Chairez MD Primary Care Provider Fiordaliza Chairez Attending Unavailable Fiordaliza Chairez Attending Unavailable Fiordaliza Chairez Attending Unavailable Fiordaliza Chairez Attending Unavailable Fiordaliza Chairez Attending Unavailable Fiordaliza Chairez Attending Unavailable Fiordaliza Chairez Attending Unavailable Fiordaliza Chairez Attending Unavailable MAYNOR BRONSON Attending Unavailable MAYNOR BRONSON Attending Unavailable MAYNOR BRONSON Referring Unavailable MAYNOR BRONSON Attending Unavailable Yassine James MD Primary Care Provider Allergies Allergy ClassificationReported Allergen(s)Allergy TypeDate of OnsetReaction(s) Facility (1 source)No Known Medication Allergies; Translations: [No Known Medication Allergies]Propensity to adverse reactions (disorder)[facility] Repository Medications Current Medications MedicationDrug Class(es)DatesSig (Normalized)Sig (Original)lisdexamfetamine dimesylate 30 mg oral capsule (6 sources)Central Nervous System Stimulant End: 00-41-9971lbum 1 capsule by mouth in the morninglisdexamfetamine (Vyvanse) 30 MG capsule Take 30 mg by mouth in the morning. 04/19/2025 Discontinued (Other)Lysine (6 sources) End: 26-18-7372WETGZP PO Take by mouth 04/19/2025 Discontinued (Other)LYSINE PO Take by mouth ActivemedroxyPROGESTERone acetate 10 mg oral tablet (6 sources)ProgestinStart: 03-12-2025 End: 76-23-4130flrr 1 tablet by mouth once daily, then [...] release oral tablet (6 sources)AminoketoneStart: 04-16-2024 End: 87-13-0813fmyt 1 tablet by mouth every twenty-four hoursWellbutrin XL 150 MG 24 hr tablet Take 150 mg by mouth 04/16/2024 03/12/2025 Discontinued (Therapy completed)levonorgestrel 0.399745 mg/hr intrauterine system (6 sources)Progestin, Progestin-containing Intrauterine Device End: 85-52-9806Kouxbyuprwmvec (Mirena, 52 MG,) 20 MCG/DAY intrauterine device as directed Intrauterine 03/12/2025 Discontinued (Therapy completed)phentermine hydrochloride 37.5 mg oral capsule (3 sources)Sympathomimetic Amine Anorectic End: 94-76-3094wpni 1 capsule by mouth in the morningphentermine 37.5 MG capsule Take 37.5 mg by mouth in the morning. 06/12/2024 Discontinued (Other) Problems Active Problems Problem ClassificationProblemDateDocumented DateEpisodic/ChronicImmunizations and screening for infectious disease (1 source)Encounter for screening for human papillomavirus (HPV); Translations: [ENC SCREENING HUMAN PAPILLOMAVIRUS]Onset: 17-15-5576EoohoylzQufhtfvxn disorders (10 sources)Missed period; Translations: [Irregular menstruation, unspecified] Onset: 960806-70-2175JpnhfbjUmhin endocrine disorders (7 sources)Polycystic ovary syndrome; Translations: [Polycystic ovarian syndrome]Onset: 409943-97-3064CtyrsfaFdywo screening for suspected conditions (not mental disorders or infectious disease) (11 sources)Encounter for screening for malignant neoplasm of cervix; Translations: [Increased human chorionic gonadotropin level]Onset: 06-03-2022 EpisodicResidual codes; unclassified (2 sources)Gestation period, 12 weeks; Translations: [12 weeks gestation of ]31-12-1851Uplglcjl Past or Other Problems Problem ClassificationProblemDateDocumented DateEpisodic/ChronicOther complications of (1 source)Benign gestational thrombocytopenia; Translations: [Other diseases of the blood and blood-forming organs and certain disorders involving the immune mechanism complicating , third trimester]Onset: EpisodicOther complications of (1 source) with isoimmunization; Translations: [Maternal care for other isoimmunization, third trimester, not applicable or unspecified]Onset: 784708-53-1167RegealfmXxtce complications of (1 source)RhD negative; Translations: [Other specified related conditions, unspecified trimester]Onset: 099437-52-0380LzqanvasEflil and delivery including normal (9 sources)Urine test positive; Translations: [Encounter for test, result positive]Onset: 210302-76-9546KtyxivnfXfdthdoz codes; unclassified (1 source)FH: Blood disorder; Translations: [Family history of diseases of the blood and blood-forming organsand certain disorders involving the immune mechanism]Onset: 429384-61-4321TikdajobOvkknkfq codes; unclassified (1 source)Gestation period, 37 weeks; Translations: [37 weeks gestation of ]Onset: 922964-57-0924Kbgsdfzj Results Test NameValueInterpretationReference RangeFacilityUrinalysis macro (dipstick) panel (U)on 80-34-6938Bzctekuat, UANegativeNegative - 4(70) +++ mg/dLNOMS HealthcareBlood, UANegativeNegative - 50 Ramses/mcLNOMS HealthcareClarity, UAClear NOMS HealthcareColor, UAYellowNOMS HealthcareGlucose, UANegativeNegative - 2000(110) ++++ mg/dLNOMS HealthcareInterpretation and review of laboratory resultsAbnormalNOMS HealthcareKetones, UANegativeNegative - 160(16) ++++ mg/dL NOMS HealthcareLeukocytes, UA2+Negative - 500+++ Chacho/mcLNOMS HealthcareNitrite, UANegativeNegative - PositiveNOMS HealthcarepH, UA6.55 - 9N[facility] Healthcare Protein, UANegativeNegative - 2000(20) ++++ mg/dLNOMS HealthcareSpec Grav, UA 1.0101 - 1.03NOMO HealthcareUrobilinogen, UA2.00.2 - 12 mg/dLNOMO HealthcareNOMO HealthcareFetal Free Cell DNA (Non-[facility] Send Out)Ordered By: Lakshmi Brooks on 40-11-3540DrhMqdirg Health SystemBOX TESTon 48-41-6316NUA TEST SENT OUTUNITY BOX [facility] CenterMcurqmlcduQRW9NASBOLKBZ WamyxkgoejZWI29/NOMO HealthcareCLINISYNCNOMS HealthcareHCG ( test) Ql (U)on 53-01-5323Ylqqxvihlgjpic and review of laboratory resultsAbnormPenn Highlands HealthcarePreg Test, UrPositiveNegativeSSM Health [facility] HealthcareUrinalysis macro (dipstick) panel (U)on 04-19-2025 Bilirubin, UANegativeNegative - 4(70) +++ mg/dLNOMS HealthcareBlood, UAPositive Negative - 50 Ramses/mcLNOMS HealthcareClarity, UAClearNOMS HealthcareColor, UA YellowNOMS HealthcareGlucose, UANegativeNegative - 1999(110) ++++ mg/dLNOMS HealthcareInterpretation and review of laboratory resultsAbnormalCACHE [facility] Healthcare Ketones, UANegativeNegative - 160(16) ++++ mg/dLNOMS HealthcareLeukocytes, UA PositiveNegative - 500+++ Chacho/mcLNOMS HealthcareNitrite, UANegativeNegative - PositiveNOMS HealthcarepH, UA65 - 9NOMS HealthcareProtein, UAPositiveNegative - 1999(20) ++++ mg/dLNOMO HealthcareSpec Grav, UA1.021 - 1.03NOFulton Medical Center- Fulton Urobilinogen, UA1.00.2 - 12 mg/dLECU Health Edgecombe HospitalUS OB TRANSVAGINALon 94-56-3327XG OB TRANSVAGINALFINDINGS: A single intrauterine gestational sac [...] was 12/13/2024 (exact date).TB PREG QUANT HCGon 28-61-7375VLP CLMCIXHQGNPN0542iQY/mLNOMS HealthcareComment on above:5-50 0.2-1 WEEK 50-500 1-2 WEEKS 100-5,000 2-3 WEEKS 500-10,000 3-4 WEEKS 1,000-50,000 4-5 WEEKS 10,000-100,000 5-6 WEEKS 15,000-200,000 6-8 WEEKS 10,000-100,000 2-3 [facility] PREG QUANT HCGon 58-56-5297FOB ZYVAVXLGIOUN535nWM/mL NOMS HealthcareComment on above:5-50 0.2-1 WEEK 50-500 1-2 WEEKS 100-5,000 2-3 WEEKS 500-10,000 3-4 WEEKS 1,000-50,000 4-5 WEEKS 10,000-100,000 5-6 WEEKS 15,000-200,000 6-8 WEEKS 10,000-100,000 2-3 MONTHS CLINISYHenderson County Community HospitalUS PELVIC COMPLETE W/ TVon 89-45-3762QV PELVIC COMPLETE W/ TVEXAM: US PELVIC COMPLETE [...] II, MD, PHD at 21-Mar-2025 08:05:10 AM [facility]-[place] TeleradiologyNormalNot AvailableComment on above:Order Comment: US PELVIS-TRANSVAG IF INDICATED Patient's last menstrual period was 12/13/2024 (exact date).ALL CBC WITH AUTO DIFFon 62-67-8690GCSPNSRZH ABSOLUTE FRUU5JIBZ HealthcareBasophils/100 WBC (Bld) 0.2 %0.2 - 2.0 %NOMS HealthcareEosinophils/100 WBC (Bld)0.8 %Low0.9 - 7.0 %[facility] CenterErythrocyte distribution width (RBC) [Ratio]12.6 %11.0 - 15.0 %NOMSaint John'S Aurora Community HospitalHematocrit (Bld) [Volume fraction]42.1 %36.0 - 48.0 %[facility] Hemoglobin (Bld) [Mass/Vol]14.6 g/dL12.0 - 16.0 g/dLNOMS HealthcareIMMATURE GRANULOCYTES ABS AUTO0.04HighNOMO HealthcareImmature granulocytes/100 WBC (Bld) 0.4 %0.0 - 0.5 %[facility] HealthcareInterpretation and review of laboratory results AbnormalNOFulton Medical Center- FultonLYMPHOCYTES ABSOLUTE AUTO1.9NOMS Healthcare Lymphocytes/100 WBC (Bld)17.8 %Low20.5 - 60.0 %[facility] NorthlandH (RBC) [Entitic mass]29.8 pg26.7 - 34.0 pgNOSaint Luke's North Hospital–Barry RoadHC (RBC) [Mass/Vol]34.7 g/dL29.9 - 35.2 g/dLNOSaint Luke's North Hospital–Barry RoadV (RBC) [Entitic vol]85.9 fL81.0 - 99.0 fLSaint Francis Medical CenterMONOCYTES ABSOLUTE AUTO0.6NOMO HealthcareMonocytes/100 WBC (Bld)5.5 % 1.7 - 12.0 %NOM HealthcareNEUTROPHILS ABSOLUTE ZFLP5BineFNRU Healthcare Neutrophils/100 WBC (Bld)75.3 %High43.0 - 75.0 %[facility] HealthcarePlatelet mean volume (Bld) [Entitic vol]10 fL9.5 - 13.5 fLNOFulton Medical Center- FultonTBH EO #0.1NOMS HealthcareTBH WHN885IZBF [facility] North HospitalTBH RBC4.9NOMS [facility] North HospitalTB WBC10.6NOFulton Medical Center- FultonCLINISYNCNOMS [facility] North HospitalHCG ( test) Ql (U)on 03-12-2025 Interpretation and review of laboratory resultsNormalNOFulton Medical Center- FultonPreg Test, UrNegativeNegativeWatauga [facility] Center Medicine Office/Clinic Noteon 64-15-3616Xcezoh Medicine Office/Clinic NoteFatruesdale hospital Medicine Office/Clinic Note Chief Complaint 1m follow [...] - In remission Ordered: Drug Screen POC 03804 HCG, Urine POC 91597 2. Anxiety (F41.9: Anxiety disorder, unspecified) - Well controlled. 3. GERD without esophagitis (K21.9: Gastro-esophageal reflux disease without esophagitis) - Continue standard management. 4. Concentration deficit (R41.840: Attention and concentration deficit) - Adjust medication use strategy to improve focus. - Avoid distractions after taking medication. - Maintain current dosage in view of weight progress. Ordered: Drug Screen POC 68862 HCG, Urine POC 05518 5. BMI 38.0-38.9,adult (Z68.38: Body mass index [BMI] 38.0-38.9, adult) - Continue monitoring weight loss. 6. Obesity (BMI 30-39.9) (E66.9: Obesity, unspecified) - Loosing weight with Vyvanse 7. Nonsmoker (Z78.9: Other specified health status) - Please continue to not smoke. 8. Irregular menstruation, unspecified (N92.6) - Upreg neg - Precaution with stimulant. Ordered: Drug Screen POC 11352 HCG, Urine POC 03788 Orders: lisdexamfetamine, 30 mg, 1 cap(s), Oral, qAM, 90 cap(s), Refill(s) 0, [facility]., 165.2, cm, 12/11/24 9:08:00 EDT, Height/Length Dosing, [...] times per month., (more content not included)... [facility] Children's HospitalComment on above:Result Comment: Electronically Signed By: Thee SONG, Fiordaliza Andrew.br\Date and Time Signed: 12/11/24 09:43 EDT Ambulatory Visit Summaryon 09-36-4428Fevtruabdb Visit SummaryAmbulatory Visit Summary CHIKIS MEJIA :1995 [...] AM EDT With: Fiordaliza Chairez MD Where: [address] Medications What How Much When Instructions [...] you for choosing us for your care. [facility] Medicine Office/Clinic Noteon 91-90-7338[place] Medicine Office/Clinic NoteFatruesdale hospital Medicine Office/Clinic Note Chief Complaint Acute Visit [...] 07/01/2019 Recorded influenza virus vaccine, inactivated 05/16/2018 RecordedDayton Children's HospitalComment on above:Result Comment: Electronically Signed By: Fiordaliza Chairez MD\.br\Date and Time Signed: 12/03/24 13:33 EDTAmbulatory Visit Summaryon 17-95-1650Biurcclfkm Visit SummaryAmbulatory Visit Summary CHIKIS MEJIA :1995 [...] AM EDT With: Fiordaliza Chairez MD Where: [place] [id number]- Medications What How Much When Instructions Unchanged [...] you for choosing us for your care. [facility] Medicine Office/Clinic Noteon 06-64-1599Xbobig Medicine Office/Clinic NoteFatruesdale hospital Medicine Office/Clinic Note Chief Complaint Discuss Weight [...] to help. 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 Patient is starting toexercise. Discussed with the [...] is trying to change that with a hip hop dancer. 3. Concentration deficit (R41.840: Attention and concentration [...] cap(s), Oral, qAM, 30 cap(s), Refill(s) 0, [facility], 165.2, cm, 11/08/24 13:20:00 EDT, Height/Length [...] 07/01/2019 Recorded influenza virus vaccine, inactivated 05/16/2018 RecordedNoSCCI Hospital LimaComment on above:Result Comment: Electronically Signed By: Thee SONG, Fiordaliza Isaacsbr\Date and Time Signed: 11/08/24 14:20 EDTIGP,APTIMA HPV,AGE GDLNon 39-86-8795MOI GDLN ACOG TESTINGNote.NOMS HealthcareComment on above:TESTS RESULT FLAG UNITS REF RANGE LAB Clinician Provided Cytology Information Source.............Cervix;Endocervix No. of containers..01 ThinPrep Vial Age Algo HAOG Sanjuana... -31 08 FLAG LEGEND: L-Low Normal,H-High Normal,LL-Alert Low,HH-Alert High <-Panic Low,>-Panic High,A-Abnormal,AA-Critical Abnormal Performed at: 01 =G [address] [place] [address] Kelli Bowman MD, IGP, RFX APTIMA HPV ASCUNote.[facility] HealthcareComment on above:TESTS RESULT FLAG UNITS REF RANGE LAB DIAGNOSIS: 02 NEGATIVE FOR INTRAEPITHELIAL LESION OR MALIGNANCY. Specimen adequacy: 02 Satisfactory for evaluation. Endocervical and/or squamous metaplastic cells (endocervical component) are present. Performed by: 02 Kendra Delgado Dairy Lab Technician ([facility]) . 02 Note: Note 02 [...] High,A-Abnormal,AA-Critical Abnormal Performed at: [address] [facility] [address] [address] Kelli Bowman MD, Performed at: =G - [facility] [address] [id number] Plant Technical Specialist: Kelli Bowman MD, Phone: [phone] Performed at: [facility] Lab[address] [place], [place] [id number] Plant Technical Specialist: Kelli Bowman MD, Phone: [phone] BRUSH-SPATULA CERVIX ENDOCERVIX [facility] HealthcareAmbulatory Visit Summaryon 38-18-3992Hcbdfdlzhe Visit SummaryAmbulatory Visit Summary CHIKIS MEJIA :1995 [...] Tuesday. 2024 9:15 AM EDT With: Fiordaliza hCairez MD Where: [address] [address]- Medications What How Much When Instructions Unchanged buPROPion (Wellbutrin XL 150 mg/ 24 hours Tab-ER) 1 Tablets By Mouth Every 24 hours Pickup at [facility] Pharmacy Information [facility]: [address], [place] [phone] What How Much When Comments Stop Taking [...] you for choosing us for your care. [facility] Medicine Office/Clinic Noteon 04-83-4602Fursbv Medicine Office/Clinic NoteFatruesdale hospital Medicine Office/Clinic Note Chief Complaint Weight Management [...] q24hr, # 90 tab(s), Refills(s) 1, Pharmacy: [facility], 165.2, cm, 06/12/24 9:18:00 EST, Height/Length [...] 07/01/2019 Recorded influenza virus vaccine, inactivated 05/16/2018 RecordedNoSCCI Hospital LimaComment on above:Result Comment: Electronically Signed By: Fiordaliza Chairez MD\.br\Date and Time Signed: 06/12/24 09:45 ESTAmbulatory Visit Summaryon 57-61-1114Pwloekmuno Visit SummaryAmbulatory Visit Summary CHIKIS MEJIA :1995 [...] AM EDT With: Fiordaliza Chairez MD Where: [place] [phone]- Medications What How Much When Instructions Unchanged [...] you for choosing us for your care. [facility] Medicine Office/Clinic Noteon 88-25-3461Xwykxb Medicine Office/Clinic NoteFatruesdale hospital Medicine Office/Clinic Note HPI Staff Chikis is [...] q24hr, # 90 tab(s), Refills(s) 0, Pharmacy: [facility], 165.2, cm, 04/16/24 14:53:00 EDT, Height/Length Dosing, 93.3, kg, 04/16/24 14:53:00 EDT, Weight Dosing famotidine, 20 mg = 1 tab(s), Oral, BID, # 180 tab(s), Refills(s) 0, Pharmacy: [facility], 165.2, cm, 04/16/24 14:53:00 EDT, [...] 07/01/2019 Recorded influenza virus vaccine, inactivated 05/16/2018 RecordedDayton Children's HospitalComment on above:Result Comment: Electronically Signed By: Thee SONG, Fiordaliza Jose\Date and Time Signed: 04/16/24 15:08 EDTRetail - Clinical Note on 48-10-7927Dwydbk - Clinical Note [id number]#1.00TIFFNormalFisher [facility] Medicine Office/Clinic Noteon 58-68-5821Xzxwpk Medicine Office/Clinic NoteHPI Staff Chikis is a [...] 07/01/2019 Recorded influenza virus vaccine, inactivated 05/16/2018 RecordedDayton Children's HospitalComment on above:Result Comment: Electronically Signed By: Thee SONG, Fiordaliza Andrew.br\Date and Time Signed: 01/16/24 15:52 EDTPatient Educationon 42-58-1811Krgzhun EducationNutrition BMI for Adults What is BMI? [...] numbers. This can be done either in Fijian ([place] or metric measurements. Note that charts and online BMI calculators are available to help you find your BMI quickly and easily without having to do these calculations yourself. To calculate your BMI in [place]ian ([place] measurements: 1. Measure your weight in [...] for Disease Control and Prevention: www.cdc.gov ? [place] Heart Association: www.heart.org ? National Heart, Lung, and Blood Howes: www.nhlbi.nih.gov Summary ? Body mass index (BMI) is a number that is calculated from a person's weight and height. ? BMI may help estimate how much of a person's weight is composed of fat. BMI can help identify those who may be at higher risk for certain medical problems. ? BMI can be measured using Fijian measurements or metric measurements. ? BMI charts are used to identify whether you are underweight, normal weight, overweight, or obese. This information is not intended to replace advice given to you by your health care provider. Make sure you discuss any questions you have with your health care provider. Document Revised: 04/09/2020 Document Reviewed: 02/15/2020 [employer] Patient Education ? 2022 [employer] Retail - Clinical Noteon 04-79-0139Hfsvxd - Clinical Note [id number]#1.00TIFFSt. [facility] Hospital Medicine Office/Clinic Noteon 09-78-1106Jyjopy Medicine Office/Clinic NoteHPI Staff Chikis is a [...] 07/01/2019 Recorded influenza virus vaccine, inactivated 05/16/2018 RecordedDayton Children's HospitalComment on above:Result Comment: Electronically Signed By: Thee SONG, Fiordaliza Andrew.br\Date and Time Signed: 12/19/23 17:24 EDTPAP ACOG PANEL 2: 21 to 29on 06-10-2022..NormalPromedica Bay Park HospitalComment on above:Result Comment: Performed at: BAPerformed By: #### [id number] #### [facility] [address] [place] [address] Dr. Liz PaulaDIAGNOSIS:CommentNoCleveland Clinic Mercy HospitalComment on above: Result Comment: NEGATIVE FOR INTRAEPITHELIAL LESION OR MALIGNANCY. Performed at: BAPerformed By: #### [id number] #### [facility] [address] [place] [address] Dr. Liz PaulaMethodology:CommentUniversity Hospitals Lake West Medical Center on above: Result Comment: This liquid based ThinPrep(R) pap test was screened with the use of an image guided system. Performed at: Performed By: #### [id number] #### [facility] [address] [place] [address] Dr. Liz PaulaNote:CommentUniversity Hospitals Lake West Medical Center on above:Result Comment: The Pap smear is a screening test designed to aid in the detection of premalignant and malignant conditions of the uterine cervix. It is not a diagnostic procedure and should not be used as the sole means of detecting cervical cancer. Both false-positive and false-negative reports do occur. . Performed at: [facility] Corporationformed By: #### [id number] #### [place] [address] Dr. Liz PaulaPerformed by:CommentUniversity Hospitals Lake West Medical Center on above: Result Comment: Darrius Espitia, Dairy Lab Technician (ASCP) Performed at: [facility] Avondaleformed By: #### [id number] #### [place] [address] Dr. Liz PaulaReflex Criteria:CommentUniversity Hospitals Lake West Medical Center on above:Result Comment: The HPV DNA reflex criteria were not met with this specimen result therefore, no HPV testing was performed. . Performed at: BAPerformed By: #### [id number] #### [facility] [address] [place] [address] Dr. Liz PaulaSpecimen adequacy:CommentUniversity Hospitals Lake West Medical Center on above:Result Comment: Satisfactory for evaluation. Endocervical and/or squamous metaplastic cells (endocervical component) are present. Performed at: BAPerformed By: #### [id number] #### [facility] [address] [place] [address] Dr. Liz Grayson Gdln ACOG Khbtrlv34-64UkcoabSooRegional Medical Centerment on above:Performed By: #### [id number] #### [facility] [address] [address] [address] Liz Paula Vital Signs Date TimeVital SignValuePerforming WxnvibdbiIwtxpoqa26-52-4427 11:24-0400Body mass index (BMI) [Ratio]36.86 kg/s1Lvaix Audie DO Work Phone: [phone] [place], [place] [address]Jqlczzollu55-32-1927 11:24-0400Body unpflj070.6 kgCorey Audie DO Work Phone: [phone] [place], [place] [address]-21-2025 11:24-0400Diastolic blood orxombnb42 mm[Hg]Maynor Audie DO Work Phone: [phone] [place], [place] [address]-21-2025 11:24-0400Systolic blood ipnvgtwy386 mm[Hg]Maynor Audie DO Work Phone: [phone] [place], [place] [address]-19-2025 09:32-0400Body mass index (BMI) [Ratio]37.51 kg/b9GwdllQueens Hospital Center09-19-2025 09:32-0400Body weight 105.42 kgQueens Hospital Center08-12-2025 09:33-0400Body mass index (BMI) [Ratio]37.74 kg/c6Xwoyo Audie DO Work Phone: [phone] [place], [place] 25[address]808-12-2025 09:33-0400Body sgrlqy068.05 kgCorey Audie DO Work Phone: [phone] [place], [place] [address]-12-2025 09:33-0400Diastolic blood izdqeakr08 mm[Hg]Maynor Audie DO Work Phone: [phone] [place] [address]-12-2025 09:33-0400Systolic blood mm[Hg]Maynor Audie DO Work Phone: [phone] [place], [place] [address]-12-2024 11:15-0500Body mass index (BMI) [Ratio]34.83 kg/p4Jlixf Audie DO Work Phone: [phone] [place], [place] [address]11-12-2024 11:15-0500Body yxkyrl83.89 kgCorey Audie DO Work Phone: NO Ahrbeghcgx05-86-0142 11:15-0500Diastolic blood fzpfyzil36 mm[Hg]Maynor Audie DO Work Phone: no Epivvpjdqz76-39-6760 11:15-0500Systolic blood shkmafeb945 mm[Hg]Maynor Audie DO Work Phone: [facility] Encounters Encounter DateEncounter TypeCare ProviderFacilityStart: 05-30-2025 End: 25-76-7306Rdqom Kvng Jean MD Work Phone: [phone]-Tzodw Medicine at [facility] Start: 05-21-2025 End: 48-71-2614Oclhdt flowsheetCorey Audie DO Work Phone: noMS Quan OBGYNStart: 05-21-2025 End: 46-95-6380Yrdrbs flowsheetCorey Audie DO Work Phone: [facility] [place] OBGYNStart: 05-21-2025 End: 37-95-6914mfgnakygnhBELHR FAZIONot AvailableStart: 05-21-2025 End: 07-31-5841Voomrwtf flow sheetCorey Audie DO Work Phone: noMS [place] OBGYNComment on above:First trimester screening ([facility]); 12 weeks gestation of ([facility])Start: 04-27-2025 End: 93-52-9306Tgbwsqtoz Result EncounterPatricia MOSES Work Phone: noMS External Department UnsolicitedStart: 04-27-2025 End: 44-93-8023Yuubfteoa Result EncounterPatricia MOSES Work Phone: noms External Department UnsolicitedStart: 04-19-2025 End: 23-97-3396Efcgvw outpatient visit 5 minutesFazio Nurse Noms Bcp ObNOMS Quan OBGYNComment on above:GA: 3q0pVvsou: 04-19-2025 End: 82-68-8342cysvvodkybNHGWC FAZIONot AvailableStart: 04-11-2025 End: 34-12-2507prlbulxbwlOXNVD FAZIONot AvailableStart: 03-27-2025 End: 51-60-2244Jvmeqqemz Result EncounterCorey Audie DO Work Phone: noms External Department UnsolicitedStart: 03-27-2025 End: 11-62-2801Zivnccxam Result EncounterCorey Audie DO Work Phone: noms External Department UnsolicitedStart: 03-25-2025 End: 93-90-7254Pwzhiyssp Result EncounterCorey Audie DO Work Phone: noms External Department UnsolicitedStart: 03-25-2025 End: 72-94-6135Nulgykhab Result EncounterCorey Audie DO Work Phone: noms External Department UnsolicitedStart: 03-19-2025 End: 96-17-7679hgoquasqcnNIDKN FAZIONot AvailableStart: 27-12-7013apewcyczxt Fiordaliza ChairezFacility:FT FM BellevueStart: 03-12-2025 End: 46-44-5729Tmyoug flowsheetCorey Audie DO Work Phone: NOS[facility] OBGYNStart: 03-12-2025 End: 66-12-5509Nufjhi flowsheetCorey Audie DO Work Phone: NOWT [facility] OBGYNStart: 03-12-2025 End: 86-16-7742Vugmbmqwq Result EncounterCorey Audie DO Work Phone: noms External Department UnsolicitedStart: 03-12-2025 End: 88-98-3402Qmzvmr outpatient visit 15 minutesCorey Audie DO Work Phone: NOHI [facility] OBGYNComment on above:Missed menses; Irregular menses; PCOS (polycystic ovarian syndrome)Start: 03-12-2025 End: 08-55-7886zhlrwjdxadQYJJB FAZIONot AvailableStart: 12-11-2024 End: 71-81-1757ygslyaaogeKiuyix E. RossFacility:FT FM BellevueStart: 12-03-2024 End: 13-08-8086soptpbmomsIpdjue E. RossFacility:FT FM BellevueStart: 11-08-2024 End: 79-30-3663nvshdkalyvKzxnuj E. RossFacility:FT FM BellevueStart: 06-12-2024 End: 83-03-0701Phmbnz flowsheetCorey Audie DO Work Phone: [facility]OM[facility] BCP OBStart: 06-12-2024 End: 61-56-2347Fcshzx flowsheetCorey Audie DO Work Phone: noms BCP OBStart: 06-12-2024 End: 52-53-1455Auepulnrw Result EncounterCorey Audie DO Work Phone: NOYE External Department UnsolicitedStart: 06-12-2024 End: 84-62-0231Vfrarkw encounter procedureCorey Audie DO Work Phone: [facility] Work Phone: Start: 06-12-2024 End: 67-41-3911Peueutkv preventive med est patient 18-39 yrsCorey Audie DO Work Phone: [facility] OBComment on above:Well woman exam with routine gynecological examStart: 06-12-2024 End: 07-25-6340tkprhogrsvDONYP FAZIONot AvailableStart: 06-12-2024 End: 68-00-2190uopvkbbpzfXnhxzf E. RossFacility:FT FM BellevueStart: 04-16-2024 End: 32-41-6455aiuvnpyoymSyfhfy E. RossFacility:FT FM BellevueStart: 01-16-2024 End: 74-05-0213evzxofmywmGlzjxs E. RossFacility:FT FM BellevueStart: 12-19-2023 End: 21-61-0778eoknreghwjDsbpvg E. RossFacility:FT AMBERLY BellevueStart: 06-03-2022 End: 09-21-4773okkstbgpqeQEKKSJ ELI ROSSFacility:L3Sbdrv: 11-08-2018 End: 52-11-1267Dqzvway encounter procedureDEFAULT PHYSICIANFacility:[facility] Procedures DateProcedureProcedure DetailPerforming ClinicianStart: 71-64-4568Hkhgs dip stick/tablet rgnt non-auto w/o micrscpCorey Audie DO Work Phone: Start: 74-20-6469SFZXY FREE CELL DNA (NON-[facility] SEND OUT)Not In System Ref ProvStart: 26-76-8203IOU TESTAmy Loco MOSES Work Phone: Start: 04-19-2025 End: 95-90-6426Cxtpq dip stick/tablet rgnt non-auto w/o micrscpCorey Audie DO Work Phone: Start: 16-58-1453NND PREG QUANT HCGCorey Audie DO Work Phone: Start: 33-17-9465YIF PREG QUANT HCGCorey Audie DO Work Phone: Start: 45-51-8249DRV CBC WITH AUTO DIFFCorey Audie DO Work Phone: Start: 29-03-2481Lgzqo test visual color cmprsn methsCorey Audie DO Work Phone: Start: 78-42-5909BZD,APTIMA HPV,AGE GDLNCorey Audie DO Work Phone: Plan of Treatment DateCare ActivityDetailAuthorStart: 06-14-1374HLL ( or age 60+ yrs) (1 - 1-dose 75+ series)RSV ( or age 60+ yrs) (1 - 1-dose 75+ series) [facility]Start: 07-16-2025 End: 44-04-5118Rjduqnz encounter procedureProFisher-[facility] US ImagingStart: 07-15-2025 End: 88-82-2783Ontostm encounter /15/2025 9:20 AM EST Procedure Visit NOMEve AREVALO [address] [place] [address] Maynor Bronson, DO [address] [place] [address] NOMEve [place] OBGYNStart: 06-18-2025 End: 41-95-3005Szwiksw encounter procedureNOMS BCP OBStart: 05-21-2025 End: 80-93-6748Zseqmsu encounter ilzekgbkb51/21/2025 11:20 AM EDT Routine NOMEve AREVALO [address] [place] [address] Maynor Bronson, DO [address] [place] [place] [address] OSCAR [place] OBGYNStart: 04-19-2025 End: 93-25-3301UKK/RhABO/Rh Lab Routine Missed menses , unspecified gestational age ([facility]) Expected: 04/19/2025 (Approximate), Expires: 04/19/2026[facility]OMO HealthcareComment on above:Expected: 04/19/2025 (Approximate), Expires: 04/19/2026Start: 04-19-2025 End: 28-79-7358Ncekj type and Indirect antibody screen panel - BloodType and screen Lab Routine Missed menses , unspecified gestational age ([facility]) Expected: 04/19/2025 (Approximate), Expires: 04/19/2026[facility] Work Phone: comment on above:Expected: 04/19/2025 (Approximate), Expires: 04/19/2026Start: 04-19-2025 End: 51-97-7034Uxbsr of abuse panel - Urine by Screen methodRapid drug screen, urine Lab Routine , unspecified gestational age ([facility]) Encounter for supervision of normal first in first trimester ([facility]) Expected: 04/19/2025 (Approximate), Expires: 04/19/2026N[facility] HealthcareComment on above: Expected: 04/19/2025 (Approximate), Expires: 04/19/2026Start: 12-05-2576NDAWA-19 Vaccine ( season)COVID-19 Vaccine ()[facility] SystemStart: 49-84-7505Yijteiusp vaccinationNOMO HealthcareStart: 03-19-2025 End: 18-28-3876Gxvjqphrtrch / ancillary services cmlwvgdrga49/19/2025 11:00 AM EDT [place] [address] K[facility] [place] OBGYNStart: 03-12-2025 End: 80-30-7619Vibaqanekrlrt hormone (AMH)Antimullerian hormone (AMH) Lab Routine Missed menses Irregular menses Expected: 03/12/2025 (Approximate), Expires: 03/12/2026N[facility] HealthcareComment on above:Expected: 03/12/2025 (Approximate), Expires: 03/12/2026Start: 03-12-2025 End: 59-60-2779GYLHNPPJ Lab Routine Missed menses Irregular menses PCOS (polycystic ovarian syndrome) Expected: 03/12/2025 (Approximate), Expires: 03/12/2026[facility] HealthcareComment on above:Expected: 03/12/2025 (Approximate), Expires: 03/12/2026Start: 03-12-2025 End: 10-09-5494SI PelvisUS Pelvis w/ TV Imaging Routine Missed menses Irregular menses PCOS (polycystic ovarian syndrome) Expected: 03/12/2025, Expires: 03/12/2026[facility] HealthcareComment on above:Expected: 03/12/2025, Expires: 03/12/2026Start: 03-12-2025 End: 58-71-9965Cigebup encounter khysyqkeo02/12/2025 9:10 AM EDT Office Visit [place] [phone] Maynor Bronson, [address] [place] [address] [facility] [place] OBGYNComment on above:ArrivedStart: 20-45-5771Vwcizxied vaccinationInfluenza Vaccine (#1)[facility] HealthcareStart: 00-15-1585Slnclvimn for malignant neoplasm of cervixPap Smear [facility] SystemStart: 10-06-3894DMiZ,Tdap and Td Vaccines (1 - Tdap) DTaP,Tdap and Td Vaccines (1 - Tdap)[facility] SystemStart: 01-01-2016 Adult BMI ScreeningAdult BMI ScreeningOhioHealth Dublin Methodist Hospital SystemStart: 2009 Depression ScreeningDepression ScreeningOhioHealth Dublin Methodist Hospital SystemStart: 2009 Tobacco ScreeningTobacco ScreeningCity HospitalBacteria identified in Urine by CultureUrine culture Microbiology Routine Missed menses Ordered: 04/19/2025[facility] HealthcareComment on above:Ordered: 04/19/2025BC W Auto Differential panel - BloodCBC and differential Lab Routine Missed menses Irregular menses PCOS (polycystic ovarian syndrome) Ordered: 03/12/2025[facility] HealthcareComment on above:Ordered: 03/12/2025BC W Auto Differential panel - BloodCBC and differential Lab Routine Missed menses , unspecified gestational age ([facility]) Ordered: 04/19/2025[facility] HealthcareComment on above: Ordered: 04/19/2025ytology Cervical or vaginal smear or scraping studyPap Smear Pathology and Cytology Routine Well woman exam with routine gynecological exam Ordered: 06/12/2024[facility] Work Phone: comment on above:Ordered: 06/12/2024HEA-sulfateDHEA- sulfate Lab Routine Missed menses Irregular menses PCOS (polycystic ovarian syndrome) Ordered:03/12/2025[facility] HealthcareComment on above:Ordered: 03/12/2025 Follicle stimulating hormoneFollicle stimulating hormone Lab Routine Missed menses Irregular menses PCOS (polycystic ovarian syndrome) Ordered: 03/12/2025 [facility] HealthcareComment on above:Ordered: 03/12/2025hCG, quantitative, hCG, quantitative, Lab Routine Missed menses Irregular menses PCOS (polycystic ovarian syndrome) Ordered: 03/12/2025[facility] Work Phone: comment on above:Ordered: 03/12/2025Hemoglobin A1c/Hemoglobin.total in BloodHemoglobin A1c Lab Routine Missed menses Irregular menses Ordered: 03/12/2025[facility] HealthcareComment on above:Ordered: 03/12/2025 Hemoglobin A1c/Hemoglobin.total in BloodHemoglobin A1c Lab Routine Missed menses , unspecified gestational age ([facility]) Ordered: 04/19/2025[facility] HealthcareComment on above:Ordered: 04/19/2025Hepatitis B virus surface Ag [Presence] in Serum or Plasma by ImmunoassayHepatitis B surface antigen Lab Routine Missed menses , unspecified gestational age ([facility]) Ordered: 04/19/2025[facility] HealthcareComment on above:Ordered: 04/19/2025Hepatitis C virus Ab [Presence] in Serum or Plasma by ImmunoassayHepatitis C antibody Lab Routine Missed menses , unspecified gestational age ([facility]) Ordered: 04/19/2025[facility] HealthcareComment on above:Ordered: 04/19/2025HIV-1/HIV-2 antigen/antibody combination immunoassayHIV-1 and HIV-2 antibodies Lab Routine Missed menses , unspecified gestational age ([facility]) Ordered: 04/19/2025[facility] HealthcareComment on above:Ordered: 04/19/2025Luteinizing hormone Luteinizing hormone Lab Routine Missed menses Irregular menses PCOS (polycystic ovarian syndrome) Ordered: 03/12/2025[facility] HealthcareComment on above:Ordered: 03/12/2025ProlactinProlactin Lab Routine Missed menses Irregular menses Ordered: 03/12/2025[facility] HealthcareComment on above:Ordered: 03/12/2025Reagin Ab [Presence] in Serum by RPRRPR Lab Routine Missed menses , unspecified gestational age ([facility]) Ordered: 04/19/2025[facility] HealthcareComment on above: Ordered: 04/19/2025Rubella antibody, IgGRubella antibody, IgG Lab Routine Missed menses , unspecified gestational age ([facility]) Ordered: 04/19/2025[facility] HealthcareComment on above:Ordered: 04/19/2025Thyrotropin [Units/volume] in Serum or PlasmaTSH Lab Routine Missed menses Irregular menses PCOS (polycystic ovarian syndrome) Ordered: 03/12/2025[facility] HealthcareComment on above:Ordered: 03/12/2025Thyroxine (T4) free [Mass/volume] in Serum or PlasmaT4, free Lab Routine Missed menses Irregular menses PCOS (polycystic ovarian syndrome) Ordered: 03/12/2025[facility] HealthcareComment on above:Ordered: 03/12/2025 Immunizations Immunization DateImmunizationNotesCare NdkqhhqiFvnurpln77-90-0749dggecwnnx virus vaccine, unspecified formulationCorey Audie DO Work Phone: [facility] Payers DatePayer CategoryPayerPolicy [id number] [id number] Man[facility] - PPOANTHEM Member Subscriber Plan / Payer (Effective 2024- Present) Name: Chikis Mejia Relation to Subscriber: Self Name: Chikis Mejia ID: [id number] (NAIC) Type: Not on file Address: [address] [place] [id number] Care HMO (unspecified)[employer] [id number] Managed Care - [employer] .2.840.859100.[id number] [id number] 2.1.239664.3.57[id number] 2.1.532978.3.57[id number] .1.351918.3.57[id number] 2.1.597369.3.57[id number] 2.1.959062.3.57[id number] 2.16.840.1.545412.3.57[id number] 2.16.840.1.295208.3.57[id number] 2.16.840.1.337579.3.57[id number] 2.16.840.1.572104.3.57[id number] 2.16.840.1.798890.3.57[id number] 2.16.840.1.950815.3.57[id number] 2.16840.1.007433.3.579.[id number] 2.16.840.1.515254.3.57[id number] 2.16.840.1.705819.3.579.2.[id number] 2.16.840.1.675157.3.579.[id number] 2.16840.1.263733.3.579.2.270011-74-4305Egpwdjb Health [id number] Unknown Social History DateTypeDetailFacilityStart: 07-18-2018 End: 57-00-0316Gczimlt smoking status NHISNever smoked tobaccoNOMS Healthcare Start: 07-18-2018 End: 93-68-8901Cgwqmqv use and exposureSmokeless tobacco non-userNOMS Healthcare Start: 06-12-2024 End: 52-89-2197Jjodpaitr beverage intakeLifetime non-drinker (finding)[facility] HealthcareStart: 09-11-2020 End: 83-11-4280Grnicke of Social functionNOMO HealthcareStart: 09-11-2020 End: 02-77-7731Uihejky use panelCACHE [facility] HealthcareStart: 70-74-5169Xvh assigned at birthFeBrigham and [facility] HealthcareStart: 07-50-9096Pfvskk identityIdentifies as female gender (finding)[facility] HealthcareStart: 64-16-7601BkaottuxbVEAS HealthcareStart: 38-16-9843FpbWingscQCWR HealthcareHow often do you have a drink containing alcohol?NeverOhioHealth [facility] Hospital SystemStart: 23-97-7374XogYcitrt (finding) [facility] SystemStart: 53-09-9095Ylkinu orientationHeterosexual (finding) [facility] History of Present illness Narrative 05-21-2025 Note Date & AmwkLhadXjmyedhe94-14-9732 History of Present illness Narrative* Lona Junior, WORKERS COMPENSATION MANAGER - 05/21/2025 11:20 AM EDT Reason for Appointment: Patient ID: Chikis Mejia is a 29 y.o. female who presents for Routine Visit Patient presents today for Return OB appointment. MEDICATIONS Current Outpatient Medications Medication Instructions Vit-Fe Fumarate-FA ( VITAMIN PO) Take by mouth ALLERGIES No Known Allergies PROBLEMS Active Ambulatory Problems Diagnosis Date Noted Positive urine test ([facility]) 03/27/2025 Elevated serum hCG 03/27/2025 Irregular menses [...] nursing note reviewed. Exam conducted with a space control supervisor present. Vitals: Estimated body mass index is 36.86 kg/m as calculated from the following: Height as of 06/09/23: 5' 6 . Weight as of this encounter: 228 lb 6.4 oz. BP: 110/72 Patient's last menstrual period was 12/13/2024. Assessment/Plan ICD-10-CM 1. First trimester screening ([facility]) Z36.9 2. 12 weeks gestation of ([facility]) Z3A.12 POCT urinalysis dipstick manually resulted New [...] or undercooked meat, and stay away from [facility]. Patient has been consulted regarding [...] of: Maynor Bronson DO documented in this encounterNOMO Healthcare History of Present illness Narrative 04-19-2025 Note Date & EhyzBcrfLjhkhngs21-59-1819 History of Present illness Narrative* Ambika Rivero, WORKERS COMPENSATION MANAGER - 04/19/2025 9:00 AM EDT Reason for [...] Problems Diagnosis Date Noted Positive urine test ([facility]) 03/27/2025 Elevated serum hCG 03/27/2025 Irregular menses [...] dipstick manually resulted , unspecified gestational age ([facility]) - Type and screen; Future - ABO/Rh; Future - CBC and differential - Hemoglobin A1c - RPR - Rubella antibody, IgG - Hepatitis B surface antigen - Hepatitis C antibody - HIV-1 and HIV-2 antibodies - Rapid drug screen, urine; Future Encounter for supervision of normal first in first trimester ([facility]) - Rapid drug screen, urine; Future Nurse [...] or undercooked meat, and stay away from [facility]. Patient has also been advised [...] Present illness Narrative 03-12-2025 Note Date & IsrlTcgjRxivquge01-83-2625 History of Present illness Narrative* Lona Junior [...] nursing note reviewed. Exam conducted with a space control supervisor present. Vitals: Estimated body mass index is [...] of: Maynor Bronson DO documented in this encounterNOMO Healthcare History of Present illness Narrative 06-12-2024 Note Date & WkxtXuolDyoncbad27-88-5492 History of Present illness Narrative* Lona Junior [...] nursing note reviewed. Exam conducted with a space control supervisor present. Vitals: Estimated body mass index is [...] of: Maynor Bronson DO [facility]-12-2024 Note Date & IzwsIrdwAthnfiib08-00-2219 NotePatient Education Nutrition BMI for Adults Body [...] for Disease Control and Prevention: cdc.gov ??? [place] Heart Association: heart.org ??? National Heart, Lung, and Blood Howes: nhlbi.nih.gov This information is not intended to replace advice given to you by your health care provider. Make sure you discuss any questions you have with your health care provider. Document Revised: 04/07/2023 Document Reviewed: 03/31/2023 [employer] Patient Education ? 2023 [employer] Evaluation note Note Date & TypeNoteFacilityEvaluation note* Diagnosis Well woman exam with routine gynecological exam Routine gynecological examination documented in this encounter [facility] Evaluation note Note Date & TypeNoteFacilityEvaluation note* Diagnosis Missed menses Irregular menses Irregular menstrual cycle PCOS (polycystic ovarian syndrome) Polycystic ovaries documented in this encounter [facility] Healthcare Evaluation note Note Date & TypeNoteFacilityEvaluation [...] section and content) DATE CREATED AUTHOR 11/09/2018 [facility] DATE CREATED AUTHOR AUTHOR'S ORGANIZ ATION 06/11/2022 [facility] DATE CREATED AUTHOR AUTHOR'S ORGANIZ ATION 12/13/2024 [facility] DATE CREATED AUTHOR AUTHOR'S ORGANIZ ATION 05/22/2025 [facility] EPIC Care Teams (unrecognized sec tion and content) Team MemberRelationshipSpecialtyStart DateEnd Date Fiordaliza Chairez MD [address] [place] [address] PCP - Generalmi Bdkhvosd10/9/23Team MemberRelationshipSpecialtyStart DateEnd Date Fiordaliza Chairez MD [address] [place] [address] PCP - Generalmi Dupsqjsb44/9/23Team MemberRelationshipSpecialtyStart DateEnd Date Fiordaliza Chairez MD [address] [place] [address] PCP - Generalmi Ftktybpe51/9/23Team MemberRelationshipSpecialtyStart DateEnd Date Fiordaliza Chairez MD [address] [place] [address] PCP - GeneralFamily Ekwgfqaj38/9/23Team MemberRelationshipSpecialtyStart DateEnd Date Fiordaliza Chairez MD [address] [place] [address] PCP - GeneralFamily Gzfnkzie29/9/23Team MemberRelationshipSpecialtyStart DateEnd Date Fiordaliza Chairez MD [address] [place] [address] PCP - Generalmily Csmdizsw21/9/23Team MemberRelationshipSpecialtyStart DateEnd Date Fiordaliza Chairez MD [address] [place] [address] PCP - Generalmily Ifnopzwi89/9/23Team MemberRelationshipSpecialtyStart DateEnd Date Fiordaliza Chairez MD [address] [place] [address] PCP - GeneralFamily Ylhatrtr69/9/23Team MemberRelationshipSpecialtyStart DateEnd Date Fiordaliza Chairez MD [address] [place] [address] PCP - GeneralFamily Dsgipnfv10/9/23Team MemberRelationshipSpecialtyStart DateEnd Date Fiordaliza Chairez MD [address] [place] [address] PCP - GeneralFamily Oyjhbape78/9/23Team MemberRelationshipSpecialtyStart DateEnd Date Yassine James MD [address] [place] [address] PCP - GeneralPediatrics3/ Reason for Visit (unrecogniz [...] BE BASED ON THE PRIMARY CLINICAL RECORDS. [employer] provides no warranty or guarantee of the accuracy or completeness of information in this document.
== END 2025-06-18 19:54 | disposition home or self-care (01) ==
LOC: LAB 19:53
PROVIDERS: PCP Nurse Practitioner Family; Visit Provider Physician Assistant
DX: Z01.419 Encounter for gynecological examination (general) (routine) without abnormal findings (principal)
CPT/HCPCS: 36415; 82105; 88175